=== PATIENT | female | born 1935 | race African-American/Black ===

== ENCOUNTER → 2016-07-27 | Day surgery (SDC) | payer MEDICARE, MEDICAID ==
[~2016-07-27] MED LIST: ALLO100T PO; AMLO5TAB4 PO; ASPI-867 PO; FURO-152 PO; HYDR-3927 PO; INSU100C6 SQ; KDUR20 PO; LEVPEN SQ; LIDOCAINE HCL 1% 20ML VIAL (Pyxis) INJ ONE; LISI-604 PO; METO50TA95 PO; OMEP20CA4 PO; RIVA20TA PO; SIMV20TA6 PO; SODIUM BICARBONATE 4.2% 5 MEQ/10 ML DISP.SYRIN IV ONE
== END | disposition home or self-care (01) ==
LOC: RAD 10:38
PROVIDERS: ATTEND Internal Medicine Endocrinology, Diabetes & Metabolism
DX: E04.1 Nontoxic single thyroid nodule (principal)
CPT/HCPCS: 10022; 76942; 88172; 88173; J3490

== ENCOUNTER 2017-06-30 15:29 | Inpatient (IN) | payer MEDICARE, MEDICAID ==
[~2017-06-30] VITALS: Ht 162.6 cm; Wt 92.1 kg
[~2017-06-30 15:29] MED LIST changes: -LIDOCAINE HCL 1% 20ML VIAL (Pyxis) INJ ONE; -SODIUM BICARBONATE 4.2% 5 MEQ/10 ML DISP.SYRIN IV ONE
[2017-06-30 16:18] VITALS: BP 140/54
[2017-06-30 16:20] VITALS: BP 140/54
[2017-06-30] MEDS ORDERED: TAP5 PO (16:57)
[2017-06-30] MEDS ORDERED: GABA-529 PO (16:57)
[2017-06-30] MEDS ORDERED: LANTUS (17:37)
[2017-06-30] MEDS ORDERED: LORAZEPAM 0.5MG TABLET PO PRN (18:30)
[2017-06-30] MEDS ORDERED: ENOXAPARIN 40MG/0.4ML SYR SUBCUT SCH (18:30)
[2017-06-30] MEDS ORDERED: HYDROMORPHONE HCL/PF 2MG/ML CPJ IV PRN (18:30)
[2017-06-30] MEDS ORDERED: CLONIDINE 0.1MG TABLET PO PRN (18:30)
[2017-06-30] MEDS ORDERED: DEXTROSE 50% WATER 50ML SYRINGE IV PRN (19:15)
[2017-06-30 20:00] VITALS: BP 105/69
[2017-06-30 20:27] LABS: BASOPHILS % 1.4 % (0.0-2.0); EOSINOPHILS % 3.9 % (0.0-5.0); HEMOGLOBIN. 10.2 g/dL (12.0-16.0); LYMPHOCYTES % 19.6 % (20.0-50.0); MEAN CORPUSCULAR HEMOGLOBIN 29.9 pg (28.0-32.0); MEAN CORPUSCULAR VOLUME 88.1 fL (81.0-99.0); MEAN PLATELET VOLUME 8.6 fl (7.4-10.4); MONOCYTES % 9.8 % (2.0-8.0); NEUTROPHILS % 65.3 % (40.0-76.0); PLATELET 225 x1000/uL (130-400); RED BLOOD CELL COUNT 3.41 mill/uL (4.2-5.4); RED CELL DISTRIBUTION WIDTH 15.3 % (11.6-14.6)
[2017-06-30 20:28] LABS: CHLORIDE 110 mEq/L (98-107)
[2017-06-30] MEDS ORDERED: ATORVASTATIN CALCIUM 10MG TABLET PO SCH (21:00)
[2017-06-30] MEDS: BLOOD SUGAR DIAGNOSTIC STRIP TEST SCH (21:00)
[2017-06-30] MEDS: RIVAROXABAN 15 MG TABLET PO SCH (22:42)
[2017-06-30] MEDS: AMLODIPINE 5MG TABLET PO SCH (22:43)
[2017-06-30] MEDS: FUROSEMIDE 40MG/4ML VIAL IVP SCH (22:53)
[2017-06-30] MEDS: INSULIN LISPRO 100 UNITS/ML SUBCUT SCH (22:55)
[2017-06-30] MEDS: INSULIN GLARGINE UD 100 UNITS/ML SYR SUBCUT SCH (22:56)
[2017-07-01] VITALS: BP 162/92
[2017-07-01 00:02] LABS: CLARITY URINE CLEAR (CLEAR); COLOR URINE YELLOW (YELLOW); KETONES URINE NEGATIVE (NEGATIVE); LEUKOCYTE ESTERASE URINE NEGATIVE (NEGATIVE); NITRITE URINE NEGATIVE (NEGATIVE); OCCULT BLOOD URINE NEGATIVE (NEGATIVE); PROTEIN URINE NEGATIVE (NEGATIVE); SPECIFIC GRAVITY URINE 1.011 (1.005-1.030); UROBILINOGEN URINE 0.2 E.U./dL (0.2-1.0)
[2017-07-01] MEDS: IPRATROPIUM/ALBUTEROL 0.5-3(2.5)MG/3ML NEB HHN SCH ×7 (00:17→20:29)
[2017-07-01 04:00] VITALS: BP 119/53
[2017-07-01] MEDS: OMEPRAZOLE 20MG CAPSULE EXTENDED RELEASE PO SCH (06:04)
[2017-07-01] MEDS: BLOOD SUGAR DIAGNOSTIC STRIP TEST SCH ×4 (06:04→21:00)
[2017-07-01] MEDS: INSULIN LISPRO 100 UNITS/ML SUBCUT SCH ×4 (06:22→22:18)
[2017-07-01 07:04] LABS: BASOPHILS % 2.2 % (0.0-2.0); EOSINOPHILS % 5.2 % (0.0-5.0); HEMATOCRIT. 30.6 % (36.0-48.0); LYMPHOCYTES % 25.7 % (20.0-50.0); MEAN CORPUSCULAR HEMOGLOBIN 28.8 pg (28.0-32.0); MEAN CORPUSCULAR VOLUME 88.2 fL (81.0-99.0); MEAN PLATELET VOLUME 8.8 fl (7.4-10.4); NEUTROPHILS % 54.9 % (40.0-76.0); PLATELET 230 x1000/uL (130-400); RED BLOOD CELL COUNT 3.47 mill/uL (4.2-5.4); RED CELL DISTRIBUTION WIDTH 15.3 % (11.6-14.6)
[2017-07-01 08:00] VITALS: BP 154/78
[2017-07-01] MEDS: FUROSEMIDE 40MG/4ML VIAL IVP SCH ×2 (09:21→19:20)
[2017-07-01] MEDS: ALLOPURINOL 100 MG TABLET PO SCH (09:21)
[2017-07-01] MEDS: AMLODIPINE 5MG TABLET PO SCH ×2 (09:21→22:17)
[2017-07-01] MEDS: GABAPENTIN 100MG CAPSULE PO SCH ×3 (09:21→19:16)
[2017-07-01] MEDS: METOPROLOL TARTRATE 25MG TABLET PO SCH ×2 (09:22→22:17)
[2017-07-01] MEDS: LISINOPRIL 40MG TABLET PO SCH (09:22)
[2017-07-01] MEDS: METHIMAZOLE 5MG TABLET PO SCH (09:22)
[2017-07-01] MEDS: POTASSIUM CHLORIDE 20MEQ TABLET SR PO SCH ×2 (09:22→19:16)
[2017-07-01 12:00] VITALS: BP 128/53
[2017-07-01] MEDS ORDERED: HYDROCODONE/ACETAMINOPHEN 5/325MG TABLET PO PRN (15:15)
[2017-07-01 16:00] VITALS: BP 114/52
[2017-07-01] MEDS ORDERED: FUROSEMIDE 20MG TABLET PO SCH (17:00)
[2017-07-01] MEDS: RIVAROXABAN 15 MG TABLET PO SCH (19:16)
[2017-07-01 20:00] VITALS: BP 122/53
[2017-07-01] MEDS: ATORVASTATIN CALCIUM 10MG TABLET PO SCH (23:10)
[2017-07-01] MEDS: INSULIN GLARGINE UD 100 UNITS/ML SYR SUBCUT SCH (23:12)
[2017-07-02] VITALS: BP 144/87
[2017-07-02] MEDS: IPRATROPIUM/ALBUTEROL 0.5-3(2.5)MG/3ML NEB HHN SCH ×6 (00:05→20:00)
[2017-07-02 04:00] VITALS: BP 138/70
[2017-07-02 05:51] LABS: BASOPHILS % 1.2 % (0.0-2.0); EOSINOPHILS % 6.8 % (0.0-5.0); HEMATOCRIT. 27.9 % (36.0-48.0); HEMOGLOBIN. 9.1 g/dL (12.0-16.0); LYMPHOCYTES % 23.3 % (20.0-50.0); MEAN CORPUSCULAR HEMOGLOBIN 28.7 pg (28.0-32.0); MEAN CORPUSCULAR VOLUME 87.7 fL (81.0-99.0); MONOCYTES % 11.1 % (2.0-8.0); NEUTROPHILS % 57.6 % (40.0-76.0); PLATELET 216 x1000/uL (130-400); RED BLOOD CELL COUNT 3.18 mill/uL (4.2-5.4); RED CELL DISTRIBUTION WIDTH 15.5 % (11.6-14.6)
[2017-07-02] MEDS: OMEPRAZOLE 20MG CAPSULE EXTENDED RELEASE PO SCH (06:44)
[2017-07-02] MEDS: BLOOD SUGAR DIAGNOSTIC STRIP TEST SCH ×4 (06:45→20:34)
[2017-07-02 08:00] VITALS: BP 123/66
[2017-07-02] MEDS: INSULIN LISPRO 100 UNITS/ML SUBCUT SCH ×4 (08:00→21:09)
[2017-07-02] MEDS: ASPIRIN 325MG EC TABLET PO SCH (09:14)
[2017-07-02] MEDS: METOPROLOL TARTRATE 25MG TABLET PO SCH ×2 (09:15→21:06)
[2017-07-02] MEDS: POTASSIUM CHLORIDE 20MEQ TABLET SR PO SCH ×2 (09:15→17:39)
[2017-07-02] MEDS: METHIMAZOLE 5MG TABLET PO SCH (09:15)
[2017-07-02] MEDS: LISINOPRIL 40MG TABLET PO SCH (09:16)
[2017-07-02] MEDS: GABAPENTIN 100MG CAPSULE PO SCH ×3 (09:16→17:39)
[2017-07-02] MEDS: FUROSEMIDE 40MG/4ML VIAL IVP SCH ×2 (09:16→17:39)
[2017-07-02] MEDS: AMLODIPINE 5MG TABLET PO SCH ×2 (09:16→21:06)
[2017-07-02] MEDS: ALLOPURINOL 100 MG TABLET PO SCH (09:16)
[2017-07-02 12:00] VITALS: BP 121/45
[2017-07-02 16:00] VITALS: BP 131/71
[2017-07-02] MEDS: RIVAROXABAN 15 MG TABLET PO SCH (17:39)
[2017-07-02 20:00] VITALS: BP 115/45
[2017-07-02] MEDS: ATORVASTATIN CALCIUM 10MG TABLET PO SCH (21:06)
[2017-07-02] MEDS: INSULIN GLARGINE UD 100 UNITS/ML SYR SUBCUT SCH (22:25)
[2017-07-03] VITALS: BP 129/43
[2017-07-03] MEDS: IPRATROPIUM/ALBUTEROL 0.5-3(2.5)MG/3ML NEB HHN SCH ×6 (00:50→21:36)
[2017-07-03 04:00] VITALS: BP_SYST 108; BP_SYST 129; BP_DIAS 43; BP_DIAS 48
[2017-07-03] MEDS: BLOOD SUGAR DIAGNOSTIC STRIP TEST SCH ×4 (05:54→21:28)
[2017-07-03] MEDS: METHYLPREDNISOLONE SOD SUCC 125 MG/2 ML VIAL IV SCH ×3 (06:28→21:27)
[2017-07-03] MEDS: OMEPRAZOLE 20MG CAPSULE EXTENDED RELEASE PO SCH (06:29)
[2017-07-03] MEDS: FUROSEMIDE 40MG/4ML VIAL IVP SCH (06:29)
[2017-07-03] MEDS: INSULIN LISPRO 100 UNITS/ML SUBCUT SCH ×4 (06:33→22:02)
[2017-07-03 08:00] VITALS: BP 115/30
[2017-07-03] MEDS: METOPROLOL TARTRATE 25MG TABLET PO SCH (08:42)
[2017-07-03] MEDS: ASPIRIN 325MG EC TABLET PO SCH (08:43)
[2017-07-03] MEDS: POTASSIUM CHLORIDE 20MEQ TABLET SR PO SCH ×2 (08:44→16:46)
[2017-07-03] MEDS: METHIMAZOLE 5MG TABLET PO SCH (08:44)
[2017-07-03] MEDS: LISINOPRIL 40MG TABLET PO SCH (08:44)
[2017-07-03] MEDS: GABAPENTIN 100MG CAPSULE PO SCH ×3 (08:44→16:46)
[2017-07-03] MEDS: ALLOPURINOL 100 MG TABLET PO SCH (08:44)
[2017-07-03] MEDS: AMLODIPINE 5MG TABLET PO SCH ×2 (08:45→21:26)
[2017-07-03 12:00] VITALS: BP 117/45
[2017-07-03 16:00] VITALS: BP 135/61
[2017-07-03] MEDS: RIVAROXABAN 15 MG TABLET PO SCH (16:46)
[2017-07-03 20:00] VITALS: BP 126/78
[2017-07-03] MEDS: CARVEDILOL 6.25 MG TABLET PO SCH (21:26)
[2017-07-03] MEDS: ATORVASTATIN CALCIUM 10MG TABLET PO SCH (21:26)
[2017-07-03] MEDS: INSULIN GLARGINE UD 100 UNITS/ML SYR SUBCUT SCH (22:03)
[2017-07-04] VITALS: BP 128/53
[2017-07-04] MEDS: IPRATROPIUM/ALBUTEROL 0.5-3(2.5)MG/3ML NEB HHN SCH ×6 (01:13→21:45)
[2017-07-04 04:00] VITALS: BP 147/65
[2017-07-04 05:53] LABS: HEMATOCRIT. 29.6 % (36.0-48.0); HEMOGLOBIN. 9.8 g/dL (12.0-16.0); MEAN CORPUSCULAR VOLUME 87.8 fL (81.0-99.0); PLATELET 238 x1000/uL (130-400); RED BLOOD CELL COUNT 3.37 mill/uL (4.2-5.4); RED CELL DISTRIBUTION WIDTH 15.4 % (11.6-14.6)
[2017-07-04] MEDS: BLOOD SUGAR DIAGNOSTIC STRIP TEST SCH ×4 (06:01→21:00)
[2017-07-04] MEDS: FUROSEMIDE 40MG/4ML VIAL IVP SCH (06:32)
[2017-07-04] MEDS: METHYLPREDNISOLONE SOD SUCC 125 MG/2 ML VIAL IV SCH ×3 (06:32→22:07)
[2017-07-04] MEDS: OMEPRAZOLE 20MG CAPSULE EXTENDED RELEASE PO SCH (06:32)
[2017-07-04] MEDS: INSULIN LISPRO 100 UNITS/ML SUBCUT SCH ×4 (06:35→22:05)
[2017-07-04 08:00] VITALS: BP 134/57
[2017-07-04] MEDS: CARVEDILOL 6.25 MG TABLET PO SCH ×2 (08:49→20:23)
[2017-07-04] MEDS: LISINOPRIL 40MG TABLET PO SCH (08:50)
[2017-07-04] MEDS: GABAPENTIN 100MG CAPSULE PO SCH ×3 (08:50→16:40)
[2017-07-04] MEDS: AMLODIPINE 5MG TABLET PO SCH ×2 (08:50→20:23)
[2017-07-04] MEDS: POTASSIUM CHLORIDE 20MEQ TABLET SR PO SCH (08:50)
[2017-07-04] MEDS: METHIMAZOLE 5MG TABLET PO SCH (08:50)
[2017-07-04] MEDS: ALLOPURINOL 100 MG TABLET PO SCH (08:51)
[2017-07-04] MEDS ORDERED: ASPIRIN 81MG EC TABLET PO SCH (09:00)
[2017-07-04 12:00] VITALS: BP 120/59
[2017-07-04] MEDS: SODIUM CHLORIDE 0.9% 1,000 ML IV SCH (13:10)
[2017-07-04 16:00] VITALS: BP 122/50
[2017-07-04] MEDS: RIVAROXABAN 15 MG TABLET PO SCH (16:40)
[2017-07-04 19:56] LABS: PLATELET ESTIMATE NORMAL
[2017-07-04 20:00] VITALS: BP 145/69
[2017-07-04] MEDS: ATORVASTATIN CALCIUM 10MG TABLET PO SCH (20:23)
[2017-07-04] MEDS: INSULIN GLARGINE UD 100 UNITS/ML SYR SUBCUT SCH (22:05)
[2017-07-05] VITALS: BP 128/48
[2017-07-05] MEDS: IPRATROPIUM/ALBUTEROL 0.5-3(2.5)MG/3ML NEB HHN SCH ×6 (01:58→20:46)
[2017-07-05 04:00] VITALS: BP 129/56
[2017-07-05] MEDS: SODIUM CHLORIDE 0.9% 1,000 ML IV SCH (04:41)
[2017-07-05 06:03] LABS: HEMATOCRIT. 29.1 % (36.0-48.0); HEMOGLOBIN. 9.7 g/dL (12.0-16.0); MEAN CORPUSCULAR HEMOGLOBIN 29.4 pg (28.0-32.0); MEAN CORPUSCULAR VOLUME 88.5 fL (81.0-99.0); MEAN PLATELET VOLUME 8.9 fl (7.4-10.4); PLATELET 239 x1000/uL (130-400); RED BLOOD CELL COUNT 3.29 mill/uL (4.2-5.4); RED CELL DISTRIBUTION WIDTH 15.3 % (11.6-14.6)
[2017-07-05] MEDS: BLOOD SUGAR DIAGNOSTIC STRIP TEST SCH ×4 (06:06→21:00)
[2017-07-05] MEDS: INSULIN LISPRO 100 UNITS/ML SUBCUT SCH ×4 (06:35→21:34)
[2017-07-05 08:00] VITALS: BP 151/52
[2017-07-05] MEDS ORDERED: ONDANSETRON HCL 4MG/2ML VIAL IV PRN (08:30)
[2017-07-05] MEDS ORDERED: SODIUM CHLORIDE 0.9% 1,000 ML IV SCH (08:30)
[2017-07-05] MEDS: ALLOPURINOL 100 MG TABLET PO SCH (08:58)
[2017-07-05] MEDS: CARVEDILOL 6.25 MG TABLET PO SCH ×2 (08:58→21:00)
[2017-07-05] MEDS: FAMOTIDINE 20MG TABLET PO SCH (08:58)
[2017-07-05] MEDS: AMLODIPINE 5MG TABLET PO SCH ×2 (08:59→21:06)
[2017-07-05] MEDS: LISINOPRIL 40MG TABLET PO SCH (08:59)
[2017-07-05] MEDS ORDERED: METHYLPREDNISOLONE SOD SUCC 40 MG/ML VIAL IV SCH (09:00)
[2017-07-05] MEDS: GABAPENTIN 100MG CAPSULE PO SCH ×3 (09:00→18:05)
[2017-07-05] MEDS: METHIMAZOLE 5MG TABLET PO SCH (09:00)
[2017-07-05] MEDS ORDERED: SODIUM POLYSTYRENE SULFONATE 15 G/60 ML BOT PO NR (10:00)
[2017-07-05 12:00] VITALS: BP 122/57
[2017-07-05 13:59] LABS: PLATELET ESTIMATE NORMAL
[2017-07-05 16:00] VITALS: BP 127/50
[2017-07-05] MEDS: RIVAROXABAN 15 MG TABLET PO SCH (18:04)
[2017-07-05 19:16] LABS: CHLORIDE 103 mEq/L (98-107)
[2017-07-05 20:00] VITALS: BP 117/66
[2017-07-05] MEDS: ATORVASTATIN CALCIUM 10MG TABLET PO SCH (21:01)
[2017-07-05] MEDS: INSULIN GLARGINE UD 100 UNITS/ML SYR SUBCUT SCH (21:36)
[2017-07-06] VITALS: BP 130/66
[2017-07-06] MEDS: IPRATROPIUM/ALBUTEROL 0.5-3(2.5)MG/3ML NEB HHN SCH ×6 (00:42→21:43)
[2017-07-06 04:00] VITALS: BP 128/65
[2017-07-06] MEDS: BLOOD SUGAR DIAGNOSTIC STRIP TEST SCH ×4 (06:31→21:08)
[2017-07-06] MEDS: INSULIN LISPRO 100 UNITS/ML SUBCUT SCH ×4 (07:10→21:07)
[2017-07-06 08:00] VITALS: BP 103/41
[2017-07-06] MEDS: CARVEDILOL 6.25 MG TABLET PO SCH ×2 (08:33→21:06)
[2017-07-06] MEDS: LISINOPRIL 40MG TABLET PO SCH (08:34)
[2017-07-06] MEDS: AMLODIPINE 5MG TABLET PO SCH ×2 (10:17→21:07)
[2017-07-06] MEDS: METHIMAZOLE 5MG TABLET PO SCH (10:17)
[2017-07-06] MEDS: FAMOTIDINE 20MG TABLET PO SCH (10:17)
[2017-07-06] MEDS: ALLOPURINOL 100 MG TABLET PO SCH (10:17)
[2017-07-06] MEDS: GABAPENTIN 100MG CAPSULE PO SCH ×3 (10:17→16:48)
[2017-07-06 12:00] VITALS: BP 117/54
[2017-07-06 16:00] VITALS: BP 106/33
[2017-07-06] MEDS: RIVAROXABAN 15 MG TABLET PO SCH (16:48)
[2017-07-06 20:00] VITALS: BP 114/54
[2017-07-06] MEDS: ATORVASTATIN CALCIUM 10MG TABLET PO SCH (21:07)
[2017-07-06] MEDS: INSULIN GLARGINE UD 100 UNITS/ML SYR SUBCUT SCH (21:08)
[2017-07-07] VITALS: BP 116/47
[2017-07-07] MEDS: IPRATROPIUM/ALBUTEROL 0.5-3(2.5)MG/3ML NEB HHN SCH ×7 (01:39→23:58)
[2017-07-07 04:00] VITALS: BP 119/47
[2017-07-07] MEDS: BLOOD SUGAR DIAGNOSTIC STRIP TEST SCH ×4 (06:11→21:51)
[2017-07-07] MEDS: INSULIN LISPRO 100 UNITS/ML SUBCUT SCH ×4 (06:12→21:57)
[2017-07-07 07:18] LABS: BASOPHILS % 0.2 % (0.0-2.0); EOSINOPHILS % 3.3 % (0.0-5.0); HEMATOCRIT. 30.4 % (36.0-48.0); HEMOGLOBIN. 10.5 g/dL (12.0-16.0); LYMPHOCYTES % 25.8 % (20.0-50.0); MEAN CORPUSCULAR HEMOGLOBIN 30.5 pg (28.0-32.0); MONOCYTES % 14.6 % (2.0-8.0); NEUTROPHILS % 56.1 % (40.0-76.0); PLATELET 251 x1000/uL (130-400); RED BLOOD CELL COUNT 3.45 mill/uL (4.2-5.4)
[2017-07-07 07:33] LABS: CHLORIDE 105 mEq/L (98-107)
[2017-07-07 07:39] LABS: PHOSPHORUS 4.8 mg/dL (2.5-4.9)
[2017-07-07 08:00] VITALS: BP 144/88
[2017-07-07] MEDS: LISINOPRIL 40MG TABLET PO SCH (09:00)
[2017-07-07] MEDS: CARVEDILOL 6.25 MG TABLET PO SCH ×2 (09:00→21:51)
[2017-07-07] MEDS: AMLODIPINE 5MG TABLET PO SCH ×2 (09:49→21:50)
[2017-07-07] MEDS: ALLOPURINOL 100 MG TABLET PO SCH (09:49)
[2017-07-07] MEDS: METHIMAZOLE 5MG TABLET PO SCH (09:49)
[2017-07-07] MEDS: GABAPENTIN 100MG CAPSULE PO SCH ×3 (09:49→17:47)
[2017-07-07] MEDS: FAMOTIDINE 20MG TABLET PO SCH (09:50)
[2017-07-07 12:00] VITALS: BP 111/52
[2017-07-07 16:00] VITALS: BP 143/53
[2017-07-07] MEDS: RIVAROXABAN 15 MG TABLET PO SCH (17:47)
[2017-07-07 20:00] VITALS: BP 127/47
[2017-07-07] MEDS: ATORVASTATIN CALCIUM 10MG TABLET PO SCH (21:49)
[2017-07-07] MEDS: INSULIN GLARGINE UD 100 UNITS/ML SYR SUBCUT SCH (21:58)
[2017-07-08] VITALS: BP 109/54
[2017-07-08 00:42] LABS: TOTAL IRON BINDING CAPACITY 176 ug/dL (250-450)
[2017-07-08 04:00] VITALS: BP 105/50
[2017-07-08] MEDS: IPRATROPIUM/ALBUTEROL 0.5-3(2.5)MG/3ML NEB HHN SCH ×5 (04:11→21:52)
[2017-07-08] MEDS: BLOOD SUGAR DIAGNOSTIC STRIP TEST SCH ×4 (06:47→21:50)
[2017-07-08] MEDS: INSULIN LISPRO 100 UNITS/ML SUBCUT SCH ×4 (06:47→21:46)
[2017-07-08 07:04] LABS: BASOPHILS % 0.3 % (0.0-2.0); EOSINOPHILS % 6.5 % (0.0-5.0); HEMATOCRIT. 33.4 % (36.0-48.0); LYMPHOCYTES % 24.5 % (20.0-50.0); MEAN CORPUSCULAR HEMOGLOBIN 28.9 pg (28.0-32.0); MEAN PLATELET VOLUME 8.8 fl (7.4-10.4); MONOCYTES % 11.6 % (2.0-8.0); NEUTROPHILS % 57.1 % (40.0-76.0); PLATELET 248 x1000/uL (130-400); RED BLOOD CELL COUNT 3.79 mill/uL (4.2-5.4); RED CELL DISTRIBUTION WIDTH 15.1 % (11.6-14.6)
[2017-07-08 07:15] VITALS: BP 124/55
[2017-07-08 07:25] LABS: PHOSPHORUS 4.8 mg/dL (2.5-4.9)
[2017-07-08] MEDS: FAMOTIDINE 20MG TABLET PO SCH (09:04)
[2017-07-08] MEDS: METHIMAZOLE 5MG TABLET PO SCH (09:05)
[2017-07-08] MEDS: CARVEDILOL 6.25 MG TABLET PO SCH ×2 (09:05→21:26)
[2017-07-08] MEDS: AMLODIPINE 5MG TABLET PO SCH ×2 (09:05→21:26)
[2017-07-08] MEDS: ALLOPURINOL 100 MG TABLET PO SCH (09:05)
[2017-07-08] MEDS: LISINOPRIL 40MG TABLET PO SCH (09:05)
[2017-07-08] MEDS: GABAPENTIN 100MG CAPSULE PO SCH ×3 (09:05→17:05)
[2017-07-08 12:04] VITALS: BP 114/56
[2017-07-08 17:03] VITALS: BP 125/50
[2017-07-08] MEDS: RIVAROXABAN 15 MG TABLET PO SCH (17:05)
[2017-07-08 20:00] VITALS: BP 154/59
[2017-07-08] MEDS: ATORVASTATIN CALCIUM 10MG TABLET PO SCH (21:26)
[2017-07-08] MEDS: INSULIN GLARGINE UD 100 UNITS/ML SYR SUBCUT SCH (21:58)
[2017-07-09] VITALS: BP 113/76
[2017-07-09] MEDS: IPRATROPIUM/ALBUTEROL 0.5-3(2.5)MG/3ML NEB HHN SCH ×6 (04:03→21:07)
[2017-07-09 04:18] VITALS: BP 114/72
[2017-07-09] MEDS: BLOOD SUGAR DIAGNOSTIC STRIP TEST SCH ×4 (05:30→21:24)
[2017-07-09] MEDS: INSULIN LISPRO 100 UNITS/ML SUBCUT SCH ×4 (05:33→21:17)
[2017-07-09 06:25] LABS: BASOPHILS % 0.4 % (0.0-2.0); EOSINOPHILS % 6.9 % (0.0-5.0); HEMATOCRIT. 31.7 % (36.0-48.0); HEMOGLOBIN. 10.5 g/dL (12.0-16.0); MEAN CORPUSCULAR HEMOGLOBIN 28.9 pg (28.0-32.0); MEAN CORPUSCULAR VOLUME 87.4 fL (81.0-99.0); MEAN PLATELET VOLUME 8.9 fl (7.4-10.4); MONOCYTES % 10.5 % (2.0-8.0); NEUTROPHILS % 63.2 % (40.0-76.0); PLATELET 249 x1000/uL (130-400); RED BLOOD CELL COUNT 3.63 mill/uL (4.2-5.4); RED CELL DISTRIBUTION WIDTH 15.1 % (11.6-14.6)
[2017-07-09 08:00] VITALS: BP 134/53
[2017-07-09] MEDS: FAMOTIDINE 20MG TABLET PO SCH (08:34)
[2017-07-09] MEDS: GABAPENTIN 100MG CAPSULE PO SCH ×3 (08:34→17:54)
[2017-07-09] MEDS: METHIMAZOLE 5MG TABLET PO SCH (08:34)
[2017-07-09] MEDS: LISINOPRIL 40MG TABLET PO SCH (08:34)
[2017-07-09] MEDS: CARVEDILOL 6.25 MG TABLET PO SCH ×2 (08:35→21:02)
[2017-07-09] MEDS: AMLODIPINE 5MG TABLET PO SCH ×2 (08:35→21:02)
[2017-07-09] MEDS: ALLOPURINOL 100 MG TABLET PO SCH (08:35)
[2017-07-09 12:00] VITALS: BP 122/50
[2017-07-09 16:00] VITALS: BP 110/45
[2017-07-09] MEDS: RIVAROXABAN 15 MG TABLET PO SCH (17:54)
[2017-07-09 20:00] VITALS: BP 126/47
[2017-07-09] MEDS: ATORVASTATIN CALCIUM 10MG TABLET PO SCH (21:02)
[2017-07-09] MEDS: INSULIN GLARGINE UD 100 UNITS/ML SYR SUBCUT SCH (21:21)
[2017-07-10] VITALS: BP 138/54
[2017-07-10] MEDS: IPRATROPIUM/ALBUTEROL 0.5-3(2.5)MG/3ML NEB HHN SCH ×6 (00:46→20:56)
[2017-07-10 04:00] VITALS: BP 121/49
[2017-07-10 06:01] LABS: BASOPHILS % 0.3 % (0.0-2.0); EOSINOPHILS % 7.9 % (0.0-5.0); HEMATOCRIT. 30.2 % (36.0-48.0); HEMOGLOBIN. 10.1 g/dL (12.0-16.0); LYMPHOCYTES % 18.1 % (20.0-50.0); MEAN CORPUSCULAR HEMOGLOBIN 29.4 pg (28.0-32.0); MEAN CORPUSCULAR VOLUME 87.8 fL (81.0-99.0); MEAN PLATELET VOLUME 8.9 fl (7.4-10.4); MONOCYTES % 10.5 % (2.0-8.0); NEUTROPHILS % 63.2 % (40.0-76.0); PLATELET 243 x1000/uL (130-400); RED BLOOD CELL COUNT 3.43 mill/uL (4.2-5.4); RED CELL DISTRIBUTION WIDTH 14.9 % (11.6-14.6)
[2017-07-10] MEDS: INSULIN LISPRO 100 UNITS/ML SUBCUT SCH ×4 (06:30→21:00)
[2017-07-10] MEDS: BLOOD SUGAR DIAGNOSTIC STRIP TEST SCH ×4 (06:31→21:00)
[2017-07-10 08:00] VITALS: BP 121/54
[2017-07-10] MEDS: METHIMAZOLE 5MG TABLET PO SCH (09:24)
[2017-07-10] MEDS: FAMOTIDINE 20MG TABLET PO SCH (09:24)
[2017-07-10] MEDS: CARVEDILOL 6.25 MG TABLET PO SCH ×2 (09:24→20:45)
[2017-07-10] MEDS: ALLOPURINOL 100 MG TABLET PO SCH (09:24)
[2017-07-10] MEDS: GABAPENTIN 100MG CAPSULE PO SCH ×3 (09:24→17:30)
[2017-07-10] MEDS: AMLODIPINE 5MG TABLET PO SCH ×2 (09:24→20:45)
[2017-07-10] MEDS: LISINOPRIL 40MG TABLET PO SCH (09:25)
[2017-07-10 12:00] VITALS: BP 126/99
[2017-07-10 16:00] VITALS: BP 122/75
[2017-07-10] MEDS: RIVAROXABAN 15 MG TABLET PO SCH (17:30)
[2017-07-10 20:00] VITALS: BP 138/60
[2017-07-10] MEDS: ATORVASTATIN CALCIUM 10MG TABLET PO SCH (20:44)
[2017-07-10] MEDS: INSULIN GLARGINE UD 100 UNITS/ML SYR SUBCUT SCH (22:06)
[2017-07-11] VITALS (7 sets, daily range): BP systolic 117–144; BP diastolic 45–69
[2017-07-11] MEDS: IPRATROPIUM/ALBUTEROL 0.5-3(2.5)MG/3ML NEB HHN SCH ×6 (00:15→21:51)
[2017-07-11 06:08] LABS: BASOPHILS % 0.5 % (0.0-2.0); EOSINOPHILS % 7.2 % (0.0-5.0); HEMATOCRIT. 30.8 % (36.0-48.0); HEMOGLOBIN. 10.2 g/dL (12.0-16.0); LYMPHOCYTES % 22.6 % (20.0-50.0); MEAN CORPUSCULAR HEMOGLOBIN 29.4 pg (28.0-32.0); MEAN CORPUSCULAR VOLUME 88.8 fL (81.0-99.0); MONOCYTES % 10.7 % (2.0-8.0); PLATELET 238 x1000/uL (130-400); RED BLOOD CELL COUNT 3.46 mill/uL (4.2-5.4); RED CELL DISTRIBUTION WIDTH 14.9 % (11.6-14.6)
[2017-07-11] MEDS: INSULIN LISPRO 100 UNITS/ML SUBCUT SCH ×4 (07:15→22:04)
[2017-07-11] MEDS: FAMOTIDINE 20MG TABLET PO SCH (09:08)
[2017-07-11] MEDS: ALLOPURINOL 100 MG TABLET PO SCH (09:08)
[2017-07-11] MEDS: LISINOPRIL 40MG TABLET PO SCH (09:08)
[2017-07-11] MEDS: GABAPENTIN 100MG CAPSULE PO SCH ×3 (09:08→17:46)
[2017-07-11] MEDS: CARVEDILOL 6.25 MG TABLET PO SCH ×2 (09:09→22:01)
[2017-07-11] MEDS: METHIMAZOLE 5MG TABLET PO SCH (09:09)
[2017-07-11] MEDS: AMLODIPINE 5MG TABLET PO SCH ×2 (09:09→22:00)
[2017-07-11] MEDS: BLOOD SUGAR DIAGNOSTIC STRIP TEST SCH ×3 (11:45→21:58)
[2017-07-11] MEDS: ATORVASTATIN CALCIUM 10MG TABLET PO SCH (22:00)
[2017-07-11] MEDS: INSULIN GLARGINE UD 100 UNITS/ML SYR SUBCUT SCH (23:19)
[2017-07-12] VITALS: BP 134/62
[2017-07-12 04:00] VITALS: BP 116/58
[2017-07-12] MEDS: IPRATROPIUM/ALBUTEROL 0.5-3(2.5)MG/3ML NEB HHN SCH ×6 (05:03→20:44)
[2017-07-12] MEDS: BLOOD SUGAR DIAGNOSTIC STRIP TEST SCH ×4 (05:48→21:08)
[2017-07-12] MEDS: INSULIN LISPRO 100 UNITS/ML SUBCUT SCH ×4 (05:48→21:13)
[2017-07-12 06:03] LABS: HEMATOCRIT. 27.5 % (36.0-48.0); HEMOGLOBIN. 9.1 g/dL (12.0-16.0); LYMPHOCYTES % 18.4 % (20.0-50.0); MEAN CORPUSCULAR HEMOGLOBIN 29.1 pg (28.0-32.0); MEAN CORPUSCULAR VOLUME 87.9 fL (81.0-99.0); MEAN PLATELET VOLUME 8.7 fl (7.4-10.4); MONOCYTES % 10.3 % (2.0-8.0); NEUTROPHILS % 62.3 % (40.0-76.0); PLATELET 237 x1000/uL (130-400); RED BLOOD CELL COUNT 3.13 mill/uL (4.2-5.4); RED CELL DISTRIBUTION WIDTH 15.2 % (11.6-14.6)
[2017-07-12 08:00] VITALS: BP 104/56
[2017-07-12] MEDS: FUROSEMIDE 40MG/4ML VIAL IVP SCH ×2 (08:33→21:07)
[2017-07-12] MEDS: ALLOPURINOL 100 MG TABLET PO SCH (08:34)
[2017-07-12] MEDS: GABAPENTIN 100MG CAPSULE PO SCH ×3 (08:34→18:08)
[2017-07-12] MEDS: METHIMAZOLE 5MG TABLET PO SCH (08:34)
[2017-07-12] MEDS: FAMOTIDINE 20MG TABLET PO SCH (08:34)
[2017-07-12] MEDS: CARVEDILOL 6.25 MG TABLET PO SCH ×2 (08:44→21:08)
[2017-07-12] MEDS: AMLODIPINE 5MG TABLET PO SCH ×2 (08:45→21:07)
[2017-07-12] MEDS: LISINOPRIL 40MG TABLET PO SCH (08:45)
[2017-07-12 12:00] VITALS: BP 119/46
[2017-07-12 16:00] VITALS: BP 142/92
[2017-07-12 20:00] VITALS: BP 136/46
[2017-07-12] MEDS: ATORVASTATIN CALCIUM 10MG TABLET PO SCH (21:08)
[2017-07-12] MEDS: INSULIN GLARGINE UD 100 UNITS/ML SYR SUBCUT SCH (21:15)
[2017-07-13] VITALS: BP 142/54
[2017-07-13] MEDS ORDERED: NAPROXEN 250MG TABLET PO SCH
[2017-07-13] MEDS: IPRATROPIUM/ALBUTEROL 0.5-3(2.5)MG/3ML NEB HHN SCH ×7 (00:08→21:37)
[2017-07-13 04:00] VITALS: BP 136/60
[2017-07-13] MEDS: BLOOD SUGAR DIAGNOSTIC STRIP TEST SCH ×4 (05:45→20:58)
[2017-07-13] MEDS: INSULIN LISPRO 100 UNITS/ML SUBCUT SCH ×4 (05:48→21:14)
[2017-07-13 08:00] VITALS: BP 123/57
[2017-07-13] MEDS: METHIMAZOLE 5MG TABLET PO SCH (09:05)
[2017-07-13] MEDS: ALLOPURINOL 100 MG TABLET PO SCH (09:05)
[2017-07-13] MEDS: COLCHICINE 0.6MG TABLET PO SCH ×2 (09:05→20:57)
[2017-07-13] MEDS: FAMOTIDINE 20MG TABLET PO SCH (09:05)
[2017-07-13] MEDS: FUROSEMIDE 40MG/4ML VIAL IVP SCH ×2 (09:05→20:58)
[2017-07-13] MEDS: GABAPENTIN 100MG CAPSULE PO SCH ×3 (09:05→17:03)
[2017-07-13] MEDS: AMLODIPINE 5MG TABLET PO SCH ×2 (09:06→20:58)
[2017-07-13] MEDS: LISINOPRIL 40MG TABLET PO SCH (09:06)
[2017-07-13] MEDS: CARVEDILOL 6.25 MG TABLET PO SCH ×2 (09:07→20:58)
[2017-07-13 12:00] VITALS: BP 114/50
[2017-07-13 16:00] VITALS: BP 121/52
[2017-07-13] MEDS: RIVAROXABAN 15 MG TABLET PO SCH (17:03)
[2017-07-13 20:00] VITALS: BP 144/61
[2017-07-13] MEDS: ATORVASTATIN CALCIUM 10MG TABLET PO SCH (20:57)
[2017-07-13] MEDS: INSULIN GLARGINE UD 100 UNITS/ML SYR SUBCUT SCH (21:56)
[2017-07-14] VITALS: BP 141/58
[2017-07-14] MEDS: IPRATROPIUM/ALBUTEROL 0.5-3(2.5)MG/3ML NEB HHN SCH ×5 (00:27→16:43)
[2017-07-14 04:00] VITALS: BP 115/52
[2017-07-14] MEDS: BLOOD SUGAR DIAGNOSTIC STRIP TEST SCH ×3 (05:42→16:45)
[2017-07-14] MEDS: INSULIN LISPRO 100 UNITS/ML SUBCUT SCH ×2 (05:42→12:15)
[2017-07-14 08:00] VITALS: BP 134/63
[2017-07-14] MEDS: FUROSEMIDE 40MG/4ML VIAL IVP SCH (09:05)
[2017-07-14] MEDS: FAMOTIDINE 20MG TABLET PO SCH (09:07)
[2017-07-14] MEDS: METHIMAZOLE 5MG TABLET PO SCH (09:07)
[2017-07-14] MEDS: COLCHICINE 0.6MG TABLET PO SCH (09:07)
[2017-07-14] MEDS: GABAPENTIN 100MG CAPSULE PO SCH ×3 (09:08→17:49)
[2017-07-14] MEDS: LISINOPRIL 40MG TABLET PO SCH (09:09)
[2017-07-14] MEDS: AMLODIPINE 5MG TABLET PO SCH (09:10)
[2017-07-14] MEDS: CARVEDILOL 6.25 MG TABLET PO SCH (09:10)
[2017-07-14] MEDS: ALLOPURINOL 100 MG TABLET PO SCH (09:11)
[2017-07-14 12:00] VITALS: BP 120/61
[2017-07-14 13:46] VITALS: BP 120/61
[2017-07-14 16:00] VITALS: BP 132/72
[2017-07-14] MEDS: RIVAROXABAN 15 MG TABLET PO SCH (17:49)
== END 2017-07-14 18:13 | disposition home or self-care (01) | DRG 291 ==
LOC: 5WST 15:29
PROVIDERS: ADMIT Internal Medicine Nephrology; ATTEND Internal Medicine Nephrology
DX: I13.0 Hypertensive heart and chronic kidney disease with heart failure and stage 1 through stage 4 chronic kidney disease, or unspecified chronic kidney disease (principal); I50.43 Acute on chronic combined systolic (congestive) and diastolic (congestive) heart failure; E43 Unspecified severe protein-calorie malnutrition; E11.21 Type 2 diabetes mellitus with diabetic nephropathy; N17.9 Acute kidney failure, unspecified; N18.4 Chronic kidney disease, stage 4 (severe); I48.1 Persistent atrial fibrillation; E11.22 Type 2 diabetes mellitus with diabetic chronic kidney disease; J44.1 Chronic obstructive pulmonary disease with (acute) exacerbation; J44.0 Chronic obstructive pulmonary disease with (acute) lower respiratory infection; E11.40 Type 2 diabetes mellitus with diabetic neuropathy, unspecified; E11.649 Type 2 diabetes mellitus with hypoglycemia without coma; I42.9 Cardiomyopathy, unspecified; J20.9 Acute bronchitis, unspecified; E87.5 Hyperkalemia; D63.8 Anemia in other chronic diseases classified elsewhere; E05.90 Thyrotoxicosis, unspecified without thyrotoxic crisis or storm; E11.51 Type 2 diabetes mellitus with diabetic peripheral angiopathy without gangrene; E78.5 Hyperlipidemia, unspecified; I25.10 Atherosclerotic heart disease of native coronary artery without angina pectoris; M10.9 Gout, unspecified; T50.2X5A Adverse effect of carbonic-anhydrase inhibitors, benzothiadiazides and other diuretics, initial encounter; Z79.01 Long term (current) use of anticoagulants; Z79.4 Long term (current) use of insulin; Z95.0 Presence of cardiac pacemaker; Z82.49 Family history of ischemic heart disease and other diseases of the circulatory system; Z83.3 Family history of diabetes mellitus; Z86.73 Personal history of transient ischemic attack (TIA), and cerebral infarction without residual deficits
CPT/HCPCS: 36415; 71045; 80048; 80053; 81003; 82728; 82962; 83520; 83540; 83550; 83735; 83880; 84100; 84484; 85025; 93005; 93306; 93970; 94640; 97116; 97162; J1815; J1940; J2405; J2930; J7030; J7620; A4315

== ENCOUNTER → 2017-10-04 | Outpatient (CLI) | payer MEDICARE, MEDICAID ==
[~2017-10-04] MED LIST changes: +GABA-529 PO; +LANTUS; +TAP5 PO
== END | disposition home or self-care (01) ==
LOC: RAD 12:43
PROVIDERS: ATTEND Internal Medicine Nephrology
DX: I13.0 Hypertensive heart and chronic kidney disease with heart failure and stage 1 through stage 4 chronic kidney disease, or unspecified chronic kidney disease (principal); E11.22 Type 2 diabetes mellitus with diabetic chronic kidney disease; N18.4 Chronic kidney disease, stage 4 (severe); I50.9 Heart failure, unspecified; I48.1 Persistent atrial fibrillation; J44.9 Chronic obstructive pulmonary disease, unspecified
CPT/HCPCS: 71046

== ENCOUNTER 2019-03-28 22:56 | Inpatient (IN) | payer MEDICARE, MEDICAID ==
[~2019-03-28] VITALS: Ht 162.6 cm; Wt 76.7 kg
[2019-03-28 21:10] VITALS: BP 147/70
[2019-03-28 22:00] VITALS: BP 147/70
[~2019-03-28 22:56] MED LIST changes: -ASPI-867 PO; +ASPI325T85 PO; +SIMV-43 PO; -SIMV20TA6 PO
[2019-03-28] MEDS ORDERED: ONDANSETRON HCL 4MG TABLET PO PRN (23:45)
[2019-03-28] MEDS ORDERED: MAGNESIUM/ALUMINUM HYDROXIDE/SIMETHICONE 30ML UDC PO PRN (23:45)
[2019-03-28] MEDS ORDERED: DEXTROSE 50% WATER 50ML SYRINGE IV PRN (23:45)
[2019-03-29] MEDS: INSULIN GLARGINE UD 100 UNITS/ML SYR SUBCUT SCH ×3 (00:49→22:52)
[2019-03-29 06:23] LABS: HEMOGLOBIN. 10.7 g/dL (12.0-16.0); MEAN CORPUSCULAR HEMOGLOBIN 29.6 pg (28.0-32.0); MEAN CORPUSCULAR VOLUME 90.9 fL (81.0-99.0); MEAN PLATELET VOLUME 9.6 fl (7.4-10.4); PLATELET 162 x1000/uL (130-400); RED BLOOD CELL COUNT 3.63 mill/uL (4.2-5.4); RED CELL DISTRIBUTION WIDTH 15.2 % (11.6-14.6)
[2019-03-29 06:34] LABS: CHLORIDE 103 mEq/L (98-107)
[2019-03-29] MEDS: ACETAMINOPHEN 325MG TABLET PO PRN (06:44)
[2019-03-29] MEDS: INSULIN LISPRO 100 UNITS/ML SUBCUT SCH ×4 (06:44→21:00)
[2019-03-29] MEDS: BLOOD SUGAR DIAGNOSTIC STRIP TEST SCH ×4 (06:44→21:00)
[2019-03-29 07:15] VITALS: BP 126/60
[2019-03-29] MEDS: APIXABAN 2.5 MG TABLET PO SCH ×2 (08:36→16:35)
[2019-03-29] MEDS: CARVEDILOL 6.25 MG TABLET PO SCH ×2 (08:36→21:00)
[2019-03-29] MEDS: AMLODIPINE 5MG TABLET PO SCH (08:37)
[2019-03-29] MEDS ORDERED: FUROSEMIDE 40MG/4ML VIAL IVP SCH (09:00)
[2019-03-29 10:17] LABS: PLATELET ESTIMATE NORMAL
[2019-03-29] MEDS ORDERED: IPRATROPIUM/ALBUTEROL 0.5-3(2.5)MG/3ML NEB HHN PRN (15:15)
[2019-03-29] MEDS: GUAIFENESIN/CODEINE 200-20MG/10ML UDC PO PRN (15:57)
[2019-03-29] MEDS: IPRATROPIUM/ALBUTEROL 0.5-3(2.5)MG/3ML NEB HHN SCH (19:50)
[2019-03-29 20:00] VITALS: BP 132/51
[2019-03-29] MEDS: ATORVASTATIN CALCIUM 20MG TABLET PO SCH (21:46)
[2019-03-29] MEDS: GUAIFENESIN 600MG ER TABLET PO SCH (21:46)
[2019-03-30] MEDS: IPRATROPIUM/ALBUTEROL 0.5-3(2.5)MG/3ML NEB HHN SCH ×4 (01:49→21:10)
[2019-03-30] MEDS: BLOOD SUGAR DIAGNOSTIC STRIP TEST SCH ×4 (06:01→21:07)
[2019-03-30] MEDS: INSULIN LISPRO 100 UNITS/ML SUBCUT SCH ×4 (06:02→21:58)
[2019-03-30] MEDS: GUAIFENESIN/CODEINE 200-20MG/10ML UDC PO PRN (06:14)
[2019-03-30 07:00] VITALS: BP 133/43
[2019-03-30] MEDS: AMLODIPINE 5MG TABLET PO SCH (10:19)
[2019-03-30] MEDS: CARVEDILOL 6.25 MG TABLET PO SCH ×2 (10:20→21:03)
[2019-03-30] MEDS: APIXABAN 2.5 MG TABLET PO SCH ×2 (10:20→17:23)
[2019-03-30] MEDS: GUAIFENESIN 600MG ER TABLET PO SCH ×2 (10:20→21:03)
[2019-03-30] MEDS ORDERED: LEVOFLOXACIN 250MG PREMIX 50 ML IV SCH (11:00)
[2019-03-30] MEDS: FUROSEMIDE 40MG TABLET PO SCH (11:06)
[2019-03-30] MEDS: INSULIN GLARGINE UD 100 UNITS/ML SYR SUBCUT SCH ×2 (11:08→22:26)
[2019-03-30] MEDS ORDERED: LIDOCAINE HCL/PF 1% 2ML VIAL ONE (14:50)
[2019-03-30 15:06] LABS: BG BASE EXCESS 2.8 mmol/L (-2.0-2.0); BG DEOXYHEMOGLOBIN 2.7 % (0.0-5.0); BG HCO3 ACT 27.3 mmol/L (22.0-26.0); BG METHEMOGLOBIN 0.2 % (0.0-1.5); BG OXYGEN SATURATION 97.3 % (92.0-98.5); BG OXYHEMOGLOBIN 97.1 % (94.0-97.0); BG PCO2 41.8 mmHg (35.0-45.0); BG PH 7.433 (7.350-7.450); BG PO2 92.6 mmHg (75.0-100.0); BG SAMPLE SITE LEFT BRACHIAL; BG TOTAL HEMOGLOBIN 11.2 g/dL (12.0-18.0); BG VENT MODE NASAL CANNULA
[2019-03-30] MEDS: PREDNISONE 20MG TABLET PO SCH (15:47)
[2019-03-30] MEDS: LEVOFLOXACIN 250MG TABLET PO SCH (15:47)
[2019-03-30 20:00] VITALS: BP 142/61
[2019-03-30] MEDS: ATORVASTATIN CALCIUM 20MG TABLET PO SCH (21:03)
[2019-03-30] MEDS: FLUTICASONE PROPIONATE 50MCG/SPRAY BOTTLE BOTHNSTRLS SCH (22:27)
[2019-03-31] MEDS: IPRATROPIUM/ALBUTEROL 0.5-3(2.5)MG/3ML NEB HHN SCH ×2 (00:51→21:53)
[2019-03-31] MEDS: ACETYLCYSTEINE 100MG/ML 10% VIAL 4ML INH SCH ×3 (00:51→08:11)
[2019-03-31] MEDS: INSULIN LISPRO 100 UNITS/ML SUBCUT SCH ×4 (06:39→21:19)
[2019-03-31] MEDS: GUAIFENESIN/CODEINE 200-20MG/10ML UDC PO PRN ×2 (06:40→15:02)
[2019-03-31] MEDS: BLOOD SUGAR DIAGNOSTIC STRIP TEST SCH ×4 (06:40→21:11)
[2019-03-31 07:21] LABS: HEMATOCRIT. 30.7 % (36.0-48.0); HEMOGLOBIN. 10.3 g/dL (12.0-16.0); LYMPHOCYTES % 18.1 % (20.0-50.0); MEAN CORPUSCULAR HEMOGLOBIN 30.2 pg (28.0-32.0); MEAN CORPUSCULAR VOLUME 90.4 fL (81.0-99.0); MEAN PLATELET VOLUME 9.9 fl (7.4-10.4); MONOCYTES % 13.6 % (2.0-8.0); NEUTROPHILS % 67.3 % (40.0-76.0); PLATELET 151 x1000/uL (130-400); RED CELL DISTRIBUTION WIDTH 14.9 % (11.6-14.6)
[2019-03-31 07:38] LABS: CHLORIDE 100 mEq/L (98-107)
[2019-03-31 08:00] VITALS: BP 101/53
[2019-03-31] MEDS: APIXABAN 2.5 MG TABLET PO SCH ×2 (08:23→16:29)
[2019-03-31] MEDS: PREDNISONE 20MG TABLET PO SCH (08:23)
[2019-03-31] MEDS: GUAIFENESIN 600MG ER TABLET PO SCH ×2 (08:23→21:00)
[2019-03-31] MEDS: FLUTICASONE PROPIONATE 50MCG/SPRAY BOTTLE BOTHNSTRLS SCH ×2 (08:23→21:00)
[2019-03-31] MEDS: FUROSEMIDE 40MG TABLET PO SCH (08:23)
[2019-03-31] MEDS: CARVEDILOL 6.25 MG TABLET PO SCH ×2 (08:38→21:01)
[2019-03-31] MEDS: AMLODIPINE 5MG TABLET PO SCH (08:38)
[2019-03-31] MEDS: INSULIN GLARGINE UD 100 UNITS/ML SYR SUBCUT SCH ×2 (09:50→21:50)
[2019-03-31 20:00] VITALS: BP 123/51
[2019-03-31] MEDS: ATORVASTATIN CALCIUM 20MG TABLET PO SCH (21:00)
[2019-04-01] MEDS: ACETYLCYSTEINE 100MG/ML 10% VIAL 4ML INH SCH (00:49)
[2019-04-01] MEDS: IPRATROPIUM/ALBUTEROL 0.5-3(2.5)MG/3ML NEB HHN SCH ×4 (00:49→19:55)
[2019-04-01] MEDS: BLOOD SUGAR DIAGNOSTIC STRIP TEST SCH ×4 (05:36→21:00)
[2019-04-01] MEDS: INSULIN LISPRO 100 UNITS/ML SUBCUT SCH ×4 (06:05→22:17)
[2019-04-01 08:00] VITALS: BP 148/71
[2019-04-01] MEDS: APIXABAN 2.5 MG TABLET PO SCH ×2 (09:13→17:48)
[2019-04-01] MEDS: AMLODIPINE 5MG TABLET PO SCH (09:13)
[2019-04-01] MEDS: FUROSEMIDE 40MG TABLET PO SCH (09:13)
[2019-04-01] MEDS: PREDNISONE 20MG TABLET PO SCH (09:13)
[2019-04-01] MEDS: LEVOFLOXACIN 250MG TABLET PO SCH (09:13)
[2019-04-01] MEDS: FLUTICASONE PROPIONATE 50MCG/SPRAY BOTTLE BOTHNSTRLS SCH ×2 (09:14→22:11)
[2019-04-01] MEDS: CARVEDILOL 6.25 MG TABLET PO SCH ×2 (09:14→22:12)
[2019-04-01] MEDS: GUAIFENESIN 600MG ER TABLET PO SCH ×2 (10:12→22:12)
[2019-04-01] MEDS: INSULIN GLARGINE UD 100 UNITS/ML SYR SUBCUT SCH ×2 (10:25→22:12)
[2019-04-01] MEDS ORDERED: PROMETHAZINE/DEXTROMETHORPHAN 6.25-15MG/5ML BOTTLE 120ML PO PRN (11:00)
[2019-04-01 20:00] VITALS: BP 136/52
[2019-04-01] MEDS: ACETAMINOPHEN 325MG TABLET PO PRN (20:33)
[2019-04-01] MEDS: ATORVASTATIN CALCIUM 20MG TABLET PO SCH (22:13)
[2019-04-02] MEDS: IPRATROPIUM/ALBUTEROL 0.5-3(2.5)MG/3ML NEB HHN SCH ×4 (01:12→21:08)
[2019-04-02] MEDS: INSULIN LISPRO 100 UNITS/ML SUBCUT SCH ×4 (06:34→23:02)
[2019-04-02] MEDS: BLOOD SUGAR DIAGNOSTIC STRIP TEST SCH ×4 (06:34→21:22)
[2019-04-02] MEDS: ACETYLCYSTEINE 100MG/ML 10% VIAL 4ML INH SCH ×2 (07:26→14:45)
[2019-04-02 08:00] VITALS: BP 160/73
[2019-04-02 08:13] LABS: HEMATOCRIT. 34.9 % (36.0-48.0); HEMOGLOBIN. 11.3 g/dL (12.0-16.0); MEAN CORPUSCULAR HEMOGLOBIN 29.5 pg (28.0-32.0); MEAN CORPUSCULAR VOLUME 90.9 fL (81.0-99.0); MEAN PLATELET VOLUME 9.1 fl (7.4-10.4); PLATELET 164 x1000/uL (130-400); RED BLOOD CELL COUNT 3.84 mill/uL (4.2-5.4); RED CELL DISTRIBUTION WIDTH 15.1 % (11.6-14.6)
[2019-04-02] MEDS: FUROSEMIDE 40MG TABLET PO SCH (08:36)
[2019-04-02] MEDS: CARVEDILOL 6.25 MG TABLET PO SCH ×2 (08:36→22:59)
[2019-04-02] MEDS: APIXABAN 2.5 MG TABLET PO SCH ×2 (08:36→17:27)
[2019-04-02] MEDS: PREDNISONE 20MG TABLET PO SCH (08:37)
[2019-04-02] MEDS: AMLODIPINE 5MG TABLET PO SCH (08:37)
[2019-04-02] MEDS: FLUTICASONE PROPIONATE 50MCG/SPRAY BOTTLE BOTHNSTRLS SCH (08:39)
[2019-04-02] MEDS: GUAIFENESIN 600MG ER TABLET PO SCH ×2 (10:17→23:00)
[2019-04-02] MEDS: INSULIN GLARGINE UD 100 UNITS/ML SYR SUBCUT SCH ×2 (10:31→23:01)
[2019-04-02 14:04] LABS: PLATELET ESTIMATE NORMAL
[2019-04-02 20:00] VITALS: BP 162/86
[2019-04-02] MEDS: ATORVASTATIN CALCIUM 20MG TABLET PO SCH (22:59)
[2019-04-03] VITALS: BP 130/64
[2019-04-03] MEDS: IPRATROPIUM/ALBUTEROL 0.5-3(2.5)MG/3ML NEB HHN SCH ×4 (01:56→20:17)
[2019-04-03] MEDS: ACETYLCYSTEINE 100MG/ML 10% VIAL 4ML INH SCH ×3 (01:56→20:17)
[2019-04-03] MEDS: GUAIFENESIN/CODEINE 200-20MG/10ML UDC PO PRN (04:41)
[2019-04-03] MEDS: BLOOD SUGAR DIAGNOSTIC STRIP TEST SCH ×4 (05:44→21:30)
[2019-04-03] MEDS: INSULIN LISPRO 100 UNITS/ML SUBCUT SCH ×4 (06:25→21:55)
[2019-04-03 07:00] VITALS: BP 155/62
[2019-04-03] MEDS: FUROSEMIDE 40MG TABLET PO SCH (08:34)
[2019-04-03] MEDS: GUAIFENESIN 600MG ER TABLET PO SCH ×2 (08:34→21:29)
[2019-04-03] MEDS: AMLODIPINE 5MG TABLET PO SCH (08:35)
[2019-04-03] MEDS: LEVOFLOXACIN 250MG TABLET PO SCH (08:35)
[2019-04-03] MEDS: PREDNISONE 10MG TABLET PO SCH (08:35)
[2019-04-03] MEDS: APIXABAN 2.5 MG TABLET PO SCH ×2 (08:35→16:20)
[2019-04-03] MEDS: CARVEDILOL 6.25 MG TABLET PO SCH ×3 (08:35→21:50)
[2019-04-03] MEDS: INSULIN GLARGINE UD 100 UNITS/ML SYR SUBCUT SCH ×2 (09:02→21:57)
[2019-04-03 20:00] VITALS: BP 138/72
[2019-04-03] MEDS: ATORVASTATIN CALCIUM 20MG TABLET PO SCH (21:29)
[2019-04-04] MEDS: IPRATROPIUM/ALBUTEROL 0.5-3(2.5)MG/3ML NEB HHN SCH ×3 (00:09→22:08)
[2019-04-04] MEDS: BLOOD SUGAR DIAGNOSTIC STRIP TEST SCH ×4 (06:30→21:18)
[2019-04-04 07:08] LABS: HEMATOCRIT. 32.4 % (36.0-48.0); HEMOGLOBIN. 10.6 g/dL (12.0-16.0); MEAN CORPUSCULAR HEMOGLOBIN 29.7 pg (28.0-32.0); MEAN CORPUSCULAR VOLUME 90.9 fL (81.0-99.0); MEAN PLATELET VOLUME 9.2 fl (7.4-10.4); PLATELET 152 x1000/uL (130-400); RED BLOOD CELL COUNT 3.56 mill/uL (4.2-5.4); RED CELL DISTRIBUTION WIDTH 14.9 % (11.6-14.6)
[2019-04-04 08:00] VITALS: BP 160/66
[2019-04-04] MEDS: ACETYLCYSTEINE 100MG/ML 10% VIAL 4ML INH SCH ×2 (08:08→22:08)
[2019-04-04 08:29] LABS: CHLORIDE 105 mEq/L (98-107)
[2019-04-04 08:36] LABS: PHOSPHORUS 2.7 mg/dL (2.5-4.9)
[2019-04-04] MEDS: INSULIN LISPRO 100 UNITS/ML SUBCUT SCH ×4 (09:00→22:37)
[2019-04-04] MEDS: FUROSEMIDE 40MG TABLET PO SCH (09:38)
[2019-04-04] MEDS: AMLODIPINE 5MG TABLET PO SCH (09:38)
[2019-04-04] MEDS: APIXABAN 2.5 MG TABLET PO SCH ×2 (09:38→18:00)
[2019-04-04] MEDS: PREDNISONE 10MG TABLET PO SCH (09:38)
[2019-04-04] MEDS: GUAIFENESIN 600MG ER TABLET PO SCH ×2 (09:39→22:34)
[2019-04-04] MEDS ORDERED: IPRA3AMP9 NEB (10:41)
[2019-04-04] MEDS ORDERED: ALBU18HF2 IH (10:41)
[2019-04-04] MEDS ORDERED: FLUT1DIS3 INH (10:41)
[2019-04-04] MEDS ORDERED: BENZ-16 MT (10:47)
[2019-04-04] MEDS: INSULIN GLARGINE UD 100 UNITS/ML SYR SUBCUT SCH ×2 (12:09→22:36)
[2019-04-04 14:30] LABS: PLATELET ESTIMATE NORMAL
[2019-04-04 20:00] VITALS: BP 156/60
[2019-04-04] MEDS: ATORVASTATIN CALCIUM 20MG TABLET PO SCH (22:34)
[2019-04-04] MEDS: CARVEDILOL 6.25 MG TABLET PO SCH (22:35)
[2019-04-05] MEDS: IPRATROPIUM/ALBUTEROL 0.5-3(2.5)MG/3ML NEB HHN SCH ×3 (03:36→16:15)
[2019-04-05 04:11] LABS: 25-HYDROXY VITAMIN D3 16 ng/mL (.)
[2019-04-05] MEDS: BLOOD SUGAR DIAGNOSTIC STRIP TEST SCH ×3 (06:21→16:19)
[2019-04-05] MEDS: INSULIN LISPRO 100 UNITS/ML SUBCUT SCH ×3 (06:21→16:19)
[2019-04-05 08:00] VITALS: BP 146/59
[2019-04-05] MEDS: GUAIFENESIN/CODEINE 200-20MG/10ML UDC PO PRN ×2 (09:54→17:03)
[2019-04-05] MEDS: PREDNISONE 10MG TABLET PO SCH (09:55)
[2019-04-05] MEDS: AMLODIPINE 5MG TABLET PO SCH (09:55)
[2019-04-05] MEDS: CARVEDILOL 6.25 MG TABLET PO SCH (09:56)
[2019-04-05] MEDS: GUAIFENESIN 600MG ER TABLET PO SCH (09:56)
[2019-04-05] MEDS: FUROSEMIDE 40MG TABLET PO SCH (09:56)
[2019-04-05] MEDS: APIXABAN 2.5 MG TABLET PO SCH ×2 (09:56→16:11)
[2019-04-05] MEDS: INSULIN GLARGINE UD 100 UNITS/ML SYR SUBCUT SCH (10:24)
[2019-04-05] MEDS ORDERED: LANTUSUD SUBCUT (14:05)
[2019-04-05] MEDS ORDERED: GUAI600T44 PO (14:05)
[2019-04-05] MEDS ORDERED: APIX2.5T PO (14:05)
[2019-04-05] MEDS ORDERED: PRED10TA PO (14:05)
[2019-04-05] MEDS ORDERED: COR6 PO (14:05)
[2019-04-05] MEDS ORDERED: GUAI10LI9 PO (14:05)
[2019-04-05] MEDS ORDERED: FURO40TA5 PO (14:05)
[2019-04-05] MEDS ORDERED: ATOR20TA PO (14:05)
[2019-04-05] MEDS ORDERED: COR25 PO (14:40)
[2019-04-05] MEDS ORDERED: LISI-186 PO (14:42)
[2019-04-05] MEDS ORDERED: ERGOCALCIFEROL 50000UNITS CAPSULE PO SCH (16:00)
[2019-04-05 18:54] VITALS: BP 133/74
== END 2019-04-05 20:15 | disposition home health service (06) | DRG 291 ==
PROVIDERS: ADMIT Physical Medicine & Rehabilitation Spinal Cord Injury Medicine; ATTEND Internal Medicine Nephrology
DX: I13.0 Hypertensive heart and chronic kidney disease with heart failure and stage 1 through stage 4 chronic kidney disease, or unspecified chronic kidney disease (principal); J96.00 Acute respiratory failure, unspecified whether with hypoxia or hypercapnia; I50.23 Acute on chronic systolic (congestive) heart failure; J44.1 Chronic obstructive pulmonary disease with (acute) exacerbation; N18.4 Chronic kidney disease, stage 4 (severe); I48.20 Chronic atrial fibrillation, unspecified; N17.9 Acute kidney failure, unspecified; E46 Unspecified protein-calorie malnutrition; N39.0 Urinary tract infection, site not specified; I42.9 Cardiomyopathy, unspecified; D64.9 Anemia, unspecified; M1A.9XX0 Chronic gout, unspecified, without tophus (tophi); J06.9 Acute upper respiratory infection, unspecified; E11.649 Type 2 diabetes mellitus with hypoglycemia without coma; E55.9 Vitamin D deficiency, unspecified; R26.9 Unspecified abnormalities of gait and mobility; R53.81 Other malaise; B96.20 Unspecified Escherichia coli [E. coli] as the cause of diseases classified elsewhere; I49.5 Sick sinus syndrome; E03.9 Hypothyroidism, unspecified; E11.42 Type 2 diabetes mellitus with diabetic polyneuropathy; E11.51 Type 2 diabetes mellitus with diabetic peripheral angiopathy without gangrene; E11.22 Type 2 diabetes mellitus with diabetic chronic kidney disease; D72.819 Decreased white blood cell count, unspecified; I27.20 Pulmonary hypertension, unspecified; G31.84 Mild cognitive impairment of uncertain or unknown etiology; F39 Unspecified mood [affective] disorder; E78.00 Pure hypercholesterolemia, unspecified; Z79.01 Long term (current) use of anticoagulants; Z86.73 Personal history of transient ischemic attack (TIA), and cerebral infarction without residual deficits; Z95.0 Presence of cardiac pacemaker; Z88.0 Allergy status to penicillin; Z87.891 Personal history of nicotine dependence; Z82.49 Family history of ischemic heart disease and other diseases of the circulatory system
CPT/HCPCS: 36415; 36600; 71045; 80048; 80053; 82306; 82375; 82805; 82962; 83735; 84100; 84134; 85025; 92610; 93970; 94640; 94667; 97110; 97116; 97150; 97162; 97166; 97530; 97535; J1815; J1940; J1956; J3490; J7512; J7608; J7620

== ENCOUNTER → 2019-05-04 | Outpatient (CLI) | payer MEDICARE, MEDICAID ==
[~2019-05-04] MED LIST changes: +ALBU18HF2 IH; +APIX2.5T PO; -ASPI325T85 PO; +ATOR20TA PO; +BENZ-16 MT; +COR25 PO; +COR6 PO; -FURO-152 PO; +FURO40TA5 PO; +GUAI10LI9 PO; +GUAI600T44 PO; -KDUR20 PO; -LANTUS; +LANTUSUD SUBCUT; -LEVPEN SQ; +LISI-186 PO; -LISI-604 PO; -METO50TA95 PO; -OMEP20CA4 PO; +PRED10TA PO; -RIVA20TA PO; -SIMV-43 PO; -TAP5 PO
== END | disposition home or self-care (01) ==
LOC: US 10:15
PROVIDERS: ATTEND Internal Medicine Nephrology
DX: C85.91 Non-Hodgkin lymphoma, unspecified, lymph nodes of head, face, and neck (principal); E04.1 Nontoxic single thyroid nodule; E04.9 Nontoxic goiter, unspecified
CPT/HCPCS: 76536

== ENCOUNTER 2019-05-09 11:18 | Inpatient (IN) | payer MEDICARE, MEDICAID ==
[~2019-05-09] VITALS: Ht 162.6 cm; Wt 74.8 kg
[2019-05-09 12:08] LABS: BASOPHILS % 1.1 % (0.0-2.0); EOSINOPHILS % 1.1 % (0.0-5.0); HEMATOCRIT. 37.4 % (36.0-48.0); HEMOGLOBIN. 12.4 g/dL (12.0-16.0); LYMPHOCYTES % 12.8 % (20.0-50.0); MEAN CORPUSCULAR VOLUME 90.1 fL (81.0-99.0); MEAN PLATELET VOLUME 8.1 fl (7.4-10.4); MONOCYTES % 7.1 % (2.0-8.0); NEUTROPHILS % 77.9 % (40.0-76.0); PLATELET 210 x1000/uL (130-400); RED BLOOD CELL COUNT 4.15 mill/uL (4.2-5.4)
[2019-05-09 12:14] LABS: CHLORIDE 104 mEq/L (98-107)
[2019-05-09 12:19] LABS: INR 1.1
[2019-05-09] MEDS ORDERED: ASPIRIN 325MG EC TABLET PO NR (12:53)
[2019-05-09] MEDS ORDERED: ACETAMINOPHEN 325MG TABLET PO PRN (14:00)
[2019-05-09] MEDS ORDERED: IPRATROPIUM/ALBUTEROL 0.5-3(2.5)MG/3ML NEB HHN PRN (14:00)
[2019-05-09] MEDS ORDERED: DEXTROSE 50% WATER 50ML SYRINGE IV PRN ×2 (14:00→22:00)
[2019-05-09] MEDS ORDERED: ONDANSETRON HCL 4MG/2ML INJ IV PRN (14:00)
[2019-05-09] MEDS ORDERED: FUROSEMIDE 40MG/4ML VIAL IVP NR (15:45)
[2019-05-09 16:06] LABS: CLARITY URINE CLEAR (CLEAR); COLOR URINE YELLOW (YELLOW); KETONES URINE NEGATIVE (NEGATIVE); LEUKOCYTE ESTERASE URINE NEGATIVE (NEGATIVE); NITRITE URINE NEGATIVE (NEGATIVE); OCCULT BLOOD URINE NEGATIVE (NEGATIVE); PH URINE 7.5 (4.5-8.0); PROTEIN URINE 2+ (NEGATIVE); SPECIFIC GRAVITY URINE 1.013 (1.005-1.030); UROBILINOGEN URINE 0.2 E.U./dL (0.2-1.0)
[2019-05-09] MEDS ORDERED: APIXABAN 5 MG TABLET PO SCH (17:00)
[2019-05-09] MEDS: INSULIN LISPRO 100 UNITS/ML SUBCUT SCH ×2 (18:20→22:20)
[2019-05-09] MEDS ORDERED: LOSARTAN POTASSIUM 50 MG TABLET PO SCH (18:47)
[2019-05-09] MEDS: BLOOD SUGAR DIAGNOSTIC STRIP TEST SCH ×2 (18:54→22:20)
[2019-05-09] MEDS: APIXABAN 2.5 MG TABLET PO SCH (19:00)
[2019-05-09] MEDS ORDERED: CARVEDILOL 6.25 MG TABLET PO NR (21:01)
[2019-05-09] MEDS: ATORVASTATIN CALCIUM 20MG TABLET PO SCH (22:19)
[2019-05-09 22:41] VITALS: BP 154/56
[2019-05-09 23:09] VITALS: BP 154/56
[2019-05-10] VITALS: BP 147/64
[2019-05-10 04:00] VITALS: BP 138/53
[2019-05-10] MEDS: BLOOD SUGAR DIAGNOSTIC STRIP TEST SCH ×4 (06:22→20:35)
[2019-05-10 06:50] LABS: EOSINOPHILS % 2.8 % (0.0-5.0); HEMATOCRIT. 32.8 % (36.0-48.0); HEMOGLOBIN. 10.7 g/dL (12.0-16.0); LYMPHOCYTES % 27.3 % (20.0-50.0); MEAN CORPUSCULAR HEMOGLOBIN 29.6 pg (28.0-32.0); MEAN CORPUSCULAR VOLUME 90.8 fL (81.0-99.0); MEAN PLATELET VOLUME 9.1 fl (7.4-10.4); MONOCYTES % 13.4 % (2.0-8.0); NEUTROPHILS % 55.5 % (40.0-76.0); PLATELET 187 x1000/uL (130-400); RED BLOOD CELL COUNT 3.61 mill/uL (4.2-5.4); RED CELL DISTRIBUTION WIDTH 14.1 % (11.6-14.6)
[2019-05-10] MEDS ORDERED: BLOOD SUGAR DIAGNOSTIC STRIP TEST SCH (07:20)
[2019-05-10] MEDS ORDERED: INSULIN LISPRO 100 UNITS/ML SUBCUT SCH (07:50)
[2019-05-10 08:00] VITALS: BP 142/59
[2019-05-10] MEDS: LOSARTAN POTASSIUM 50 MG TABLET PO SCH ×2 (08:38→20:35)
[2019-05-10] MEDS: APIXABAN 2.5 MG TABLET PO SCH ×2 (08:38→17:39)
[2019-05-10] MEDS: CARVEDILOL 6.25 MG TABLET PO SCH ×2 (08:39→20:35)
[2019-05-10] MEDS: INSULIN LISPRO 100 UNITS/ML SUBCUT SCH ×4 (08:45→20:34)
[2019-05-10 12:00] VITALS: BP 114/50
[2019-05-10 16:00] VITALS: BP 146/77
[2019-05-10] MEDS ORDERED: FURO40TA5 PO ×2 (18:08)
[2019-05-10] MEDS ORDERED: GABA-529 PO (18:09)
[2019-05-10 20:00] VITALS: BP 149/65
[2019-05-10] MEDS: ATORVASTATIN CALCIUM 20MG TABLET PO SCH (20:35)
[2019-05-11] VITALS: BP 148/58
[2019-05-11 04:00] VITALS: BP 145/51
[2019-05-11] MEDS: BLOOD SUGAR DIAGNOSTIC STRIP TEST SCH ×4 (06:25→20:46)
[2019-05-11 07:58] LABS: HEMATOCRIT. 31.3 % (36.0-48.0); HEMOGLOBIN. 10.5 g/dL (12.0-16.0); MEAN CORPUSCULAR HEMOGLOBIN 30.3 pg (28.0-32.0); MEAN CORPUSCULAR VOLUME 90.1 fL (81.0-99.0); MEAN PLATELET VOLUME 9.1 fl (7.4-10.4); PLATELET 185 x1000/uL (130-400); RED BLOOD CELL COUNT 3.48 mill/uL (4.2-5.4); RED CELL DISTRIBUTION WIDTH 13.9 % (11.6-14.6)
[2019-05-11 08:00] VITALS: BP 144/60
[2019-05-11] MEDS: INSULIN LISPRO 100 UNITS/ML SUBCUT SCH ×3 (09:39→20:48)
[2019-05-11] MEDS: CARVEDILOL 6.25 MG TABLET PO SCH ×2 (09:39→20:45)
[2019-05-11] MEDS: LOSARTAN POTASSIUM 50 MG TABLET PO SCH ×2 (09:39→20:45)
[2019-05-11] MEDS: APIXABAN 2.5 MG TABLET PO SCH ×2 (09:39→16:35)
[2019-05-11 10:33] LABS: PLATELET ESTIMATE NORMAL
[2019-05-11 12:36] VITALS: BP 144/60
[2019-05-11 20:00] VITALS: BP 163/56
[2019-05-11] MEDS: ATORVASTATIN CALCIUM 20MG TABLET PO SCH (20:45)
== END 2019-05-11 20:45 | disposition home or self-care (01) | DRG 637 ==
LOC: ER 11:18 → EDBEDREQ 14:02 → EDBEDREQTM 14:02 → ENRESERV 21:23 → 6WST 21:38
PROVIDERS: ADMIT Internal Medicine Nephrology; ATTEND Internal Medicine Nephrology
DX: E11.649 Type 2 diabetes mellitus with hypoglycemia without coma (principal); G93.41 Metabolic encephalopathy; I50.23 Acute on chronic systolic (congestive) heart failure; I13.0 Hypertensive heart and chronic kidney disease with heart failure and stage 1 through stage 4 chronic kidney disease, or unspecified chronic kidney disease; I42.9 Cardiomyopathy, unspecified; I48.20 Chronic atrial fibrillation, unspecified; D64.9 Anemia, unspecified; N17.9 Acute kidney failure, unspecified; E11.22 Type 2 diabetes mellitus with diabetic chronic kidney disease; E78.00 Pure hypercholesterolemia, unspecified; E78.5 Hyperlipidemia, unspecified; I25.10 Atherosclerotic heart disease of native coronary artery without angina pectoris; I27.21 Secondary pulmonary arterial hypertension; M10.9 Gout, unspecified; N18.9 Chronic kidney disease, unspecified; Z79.01 Long term (current) use of anticoagulants; Z86.73 Personal history of transient ischemic attack (TIA), and cerebral infarction without residual deficits; Z95.0 Presence of cardiac pacemaker; Z88.0 Allergy status to penicillin; Z79.899 Other long term (current) drug therapy
CPT/HCPCS: 36415; 71045; 80048; 80053; 81003; 82962; 83036; 84484; 85025; 93005; 97162; 99291; J1815; J1940

== ENCOUNTER 2019-08-09 11:42 | Inpatient (IN) | payer MEDICARE, MEDICAID ==
[~2019-08-09] VITALS: Ht 162.6 cm; Wt 86.2 kg
[~2019-08-09 11:42] MED LIST changes: -AMLO5TAB4 PO; -BENZ-16 MT; -COR6 PO; -GUAI10LI9 PO; -GUAI600T44 PO; -HYDR-3927 PO; -LISI-186 PO; -PRED10TA PO
[2019-08-09] MEDS ORDERED: FUROSEMIDE 20MG/2ML VIAL IVP ONE (12:45)
[2019-08-09 13:12] LABS: BASOPHILS % 0.3 % (0.0-2.0); HEMATOCRIT. 33.3 % (36.0-48.0); HEMOGLOBIN. 10.7 g/dL (12.0-16.0); LYMPHOCYTES % 19.5 % (20.0-50.0); MEAN CORPUSCULAR HEMOGLOBIN 29.3 pg (28.0-32.0); MEAN CORPUSCULAR VOLUME 90.9 fL (81.0-99.0); MEAN PLATELET VOLUME 9.5 fl (7.4-10.4); MONOCYTES % 13.6 % (2.0-8.0); NEUTROPHILS % 62.6 % (40.0-76.0); PLATELET 136 x1000/uL (130-400); RED BLOOD CELL COUNT 3.67 mill/uL (4.2-5.4); RED CELL DISTRIBUTION WIDTH 14.7 % (11.6-14.6)
[2019-08-09 13:18] LABS: CHLORIDE 109 mEq/L (98-107)
[2019-08-09] MEDS ORDERED: MAGNESIUM 2 G PREMIX 50 ML IV STA (13:35)
[2019-08-09] MEDS ORDERED: METHYLPREDNISOLONE SOD SUCC 125 MG/2 ML VIAL IV STA (13:35)
[2019-08-09] MEDS ORDERED: ALBUTEROL (0.083%) 2.5MG/3ML NEB HHN STA (13:35)
[2019-08-09] MEDS ORDERED: IPRATROPIUM BROMIDE (0.02%) 0.5MG/2.5ML NEB HHN STA (13:35)
[2019-08-09] MEDS ORDERED: IPRATROPIUM/ALBUTEROL 0.5-3(2.5)MG/3ML NEB NEB PRN (16:15)
[2019-08-09] MEDS ORDERED: ACETAMINOPHEN 325MG TABLET PO PRN (16:15)
[2019-08-09] MEDS ORDERED: ONDANSETRON HCL 4MG/2ML INJ IV PRN (16:15)
[2019-08-09] MEDS ORDERED: HYDROCODONE/ACETAMINOPHEN 5/325MG TABLET PO PRN (16:15)
[2019-08-09] MEDS ORDERED: MORPHINE SULFATE 2 MG/ML CPJ (NOT FOR IM USE) IV PRN (16:15)
[2019-08-09] MEDS ORDERED: ENOXAPARIN 30MG/0.3ML SYR SUBCUT SCH (16:30)
[2019-08-09] MEDS: FUROSEMIDE 40MG/4ML VIAL IV SCH (17:43)
[2019-08-09] MEDS: METHYLPREDNISOLONE SOD SUCC 125 MG/2 ML VIAL IV SCH ×2 (17:43→23:46)
[2019-08-09] MEDS: CLONIDINE 0.1MG TABLET PO PRN (17:45)
[2019-08-09 18:22] VITALS: BP 171/77
[2019-08-09] MEDS ORDERED: POTA10CA42 MT (18:40)
[2019-08-09] MEDS ORDERED: ATOR40TA70 MT (18:40)
[2019-08-09] MEDS ORDERED: OMEP20CA14 MT (18:40)
[2019-08-09] MEDS ORDERED: SIMV-43 MT (18:40)
[2019-08-09] MEDS ORDERED: DICL2.5D8 EACHEYE (18:40)
[2019-08-09 20:00] VITALS: BP 159/67
[2019-08-09] MEDS ORDERED: ALBUTEROL (0.083%) 2.5MG/3ML NEB HHN PRN (20:45)
[2019-08-09] MEDS ORDERED: DEXTROSE 50% WATER 50ML SYRINGE IV PRN (20:45)
[2019-08-09] MEDS: INSULIN LISPRO 100 UNITS/ML SUBCUT SCH (20:49)
[2019-08-09] MEDS: BLOOD SUGAR DIAGNOSTIC STRIP TEST SCH (20:50)
[2019-08-10] VITALS: BP 157/85
[2019-08-10 00:01] LABS: CREATINE KINASE MB FRACTION 2.7 ng/mL (0.5-3.6)
[2019-08-10 04:00] VITALS: BP 171/71
[2019-08-10] MEDS: METHYLPREDNISOLONE SOD SUCC 125 MG/2 ML VIAL IV SCH (04:10)
[2019-08-10] MEDS: FUROSEMIDE 40MG/4ML VIAL IV SCH ×2 (06:21→18:04)
[2019-08-10] MEDS: BLOOD SUGAR DIAGNOSTIC STRIP TEST SCH ×4 (06:22→21:05)
[2019-08-10] MEDS: INSULIN LISPRO 100 UNITS/ML SUBCUT SCH ×4 (06:37→21:14)
[2019-08-10 08:00] VITALS: BP 163/66
[2019-08-10 08:38] LABS: HEMATOCRIT. 32.3 % (36.0-48.0); HEMOGLOBIN. 10.7 g/dL (12.0-16.0); MEAN CORPUSCULAR HEMOGLOBIN 29.7 pg (28.0-32.0); MEAN CORPUSCULAR VOLUME 89.8 fL (81.0-99.0); MEAN PLATELET VOLUME 9.9 fl (7.4-10.4); PLATELET 134 x1000/uL (130-400); RED CELL DISTRIBUTION WIDTH 14.8 % (11.6-14.6)
[2019-08-10] MEDS: ALLOPURINOL 100 MG TABLET PO SCH (08:53)
[2019-08-10] MEDS: ASPIRIN 81MG EC TABLET PO SCH (08:53)
[2019-08-10] MEDS: APIXABAN 2.5 MG TABLET PO SCH ×2 (08:53→18:04)
[2019-08-10] MEDS: GABAPENTIN 100MG CAPSULE PO SCH ×2 (08:54→18:04)
[2019-08-10] MEDS: CLONIDINE 0.1MG TABLET PO PRN (08:54)
[2019-08-10] MEDS ORDERED: FUROSEMIDE 40MG TABLET PO SCH ×2 (09:00→17:00)
[2019-08-10 09:05] LABS: PHOSPHORUS 3.8 mg/dL (2.5-4.9)
[2019-08-10 09:12] LABS: CREATINE KINASE MB FRACTION 2.6 ng/mL (0.5-3.6)
[2019-08-10] MEDS ORDERED: INSULIN GLARGINE UD 100 UNITS/ML SYR SUBCUT SCH (10:00)
[2019-08-10] MEDS: DICLOFENAC SODIUM 0.1% OPHTH 2.5 ML BOTTLE EACHEYE SCH ×3 (12:49→21:21)
[2019-08-10 14:39] LABS: PLATELET ESTIMATE NORMAL
[2019-08-10 16:00] VITALS: BP 150/52
[2019-08-10 20:00] VITALS: BP 149/65
[2019-08-10] MEDS: BUDESONIDE 0.5MG/2ML NEB HHN SCH (20:37)
[2019-08-10] MEDS: IPRATROPIUM/ALBUTEROL 0.5-3(2.5)MG/3ML NEB HHN SCH (20:40)
[2019-08-10] MEDS ORDERED: ATORVASTATIN CALCIUM 20MG TABLET PO SCH (21:00)
[2019-08-10] MEDS: INSULIN GLARGINE UD 100 UNITS/ML SYR SUBCUT SCH (21:13)
[2019-08-10] MEDS: ATORVASTATIN CALCIUM 40MG TABLET PO SCH (21:20)
[2019-08-10] MEDS: CARVEDILOL 12.5MG TABLET PO SCH (21:20)
[2019-08-11] VITALS: BP 159/72
[2019-08-11] MEDS: IPRATROPIUM/ALBUTEROL 0.5-3(2.5)MG/3ML NEB HHN SCH ×4 (03:01→20:57)
[2019-08-11 04:00] VITALS: BP 149/64
[2019-08-11] MEDS: FUROSEMIDE 40MG/4ML VIAL IV SCH ×2 (06:21→17:49)
[2019-08-11 06:32] LABS: BASOPHILS % 0.1 % (0.0-2.0); HEMATOCRIT. 31.1 % (36.0-48.0); HEMOGLOBIN. 10.4 g/dL (12.0-16.0); LYMPHOCYTES % 9.6 % (20.0-50.0); MEAN CORPUSCULAR HEMOGLOBIN 29.6 pg (28.0-32.0); MEAN CORPUSCULAR VOLUME 88.9 fL (81.0-99.0); MEAN PLATELET VOLUME 9.8 fl (7.4-10.4); NEUTROPHILS % 76.3 % (40.0-76.0); PLATELET 131 x1000/uL (130-400); RED CELL DISTRIBUTION WIDTH 14.5 % (11.6-14.6)
[2019-08-11] MEDS: BLOOD SUGAR DIAGNOSTIC STRIP TEST SCH ×4 (06:40→21:43)
[2019-08-11] MEDS: INSULIN LISPRO 100 UNITS/ML SUBCUT SCH ×4 (06:40→22:06)
[2019-08-11] MEDS: ALLOPURINOL 100 MG TABLET PO SCH (09:04)
[2019-08-11] MEDS: APIXABAN 2.5 MG TABLET PO SCH ×2 (09:04→17:49)
[2019-08-11] MEDS: GABAPENTIN 100MG CAPSULE PO SCH ×2 (09:05→17:49)
[2019-08-11] MEDS: CARVEDILOL 12.5MG TABLET PO SCH ×2 (09:05→21:42)
[2019-08-11] MEDS: ASPIRIN 81MG EC TABLET PO SCH (09:05)
[2019-08-11] MEDS: DICLOFENAC SODIUM 0.1% OPHTH 2.5 ML BOTTLE EACHEYE SCH ×4 (09:13→21:44)
[2019-08-11] MEDS: BUDESONIDE 0.5MG/2ML NEB HHN SCH ×2 (09:25→20:57)
[2019-08-11] MEDS: INSULIN GLARGINE UD 100 UNITS/ML SYR SUBCUT SCH ×2 (10:10→22:07)
[2019-08-11] MEDS: CLONIDINE 0.1MG TABLET PO PRN (10:29)
[2019-08-11 12:00] VITALS: BP 156/65
[2019-08-11] MEDS ORDERED: AMLODIPINE 5MG TABLET PO SCH (12:00)
[2019-08-11 16:00] VITALS: BP 150/103
[2019-08-11 17:04] VITALS: BP 152/60
[2019-08-11 20:00] VITALS: BP 141/66
[2019-08-11] MEDS: AMLODIPINE 5MG TABLET PO SCH (21:42)
[2019-08-11] MEDS: ATORVASTATIN CALCIUM 40MG TABLET PO SCH (21:42)
[2019-08-11] MEDS ORDERED: MAGNESIUM/ALUMINUM HYDROXIDE/SIMETHICONE 30ML UDC PO PRN (23:45)
[2019-08-12] VITALS: BP 133/53
[2019-08-12] MEDS: OMEPRAZOLE 20MG CAPSULE EXTENDED RELEASE PO SCH (00:13)
[2019-08-12] MEDS: IPRATROPIUM/ALBUTEROL 0.5-3(2.5)MG/3ML NEB HHN SCH ×4 (02:59→21:13)
[2019-08-12 04:00] VITALS: BP 135/60
[2019-08-12] MEDS: BUDESONIDE 0.5MG/2ML NEB HHN SCH ×3 (06:00→21:13)
[2019-08-12] MEDS: BLOOD SUGAR DIAGNOSTIC STRIP TEST SCH ×4 (06:29→21:17)
[2019-08-12] MEDS: FUROSEMIDE 40MG/4ML VIAL IV SCH ×2 (06:37→16:51)
[2019-08-12] MEDS: INSULIN LISPRO 100 UNITS/ML SUBCUT SCH ×5 (06:45→21:00)
[2019-08-12 07:10] LABS: BASOPHILS % 0.8 % (0.0-2.0); EOSINOPHILS % 2.7 % (0.0-5.0); HEMATOCRIT. 29.7 % (36.0-48.0); HEMOGLOBIN. 10.2 g/dL (12.0-16.0); MEAN CORPUSCULAR HEMOGLOBIN 30.7 pg (28.0-32.0); MEAN CORPUSCULAR VOLUME 89.2 fL (81.0-99.0); MEAN PLATELET VOLUME 9.4 fl (7.4-10.4); MONOCYTES % 13.7 % (2.0-8.0); NEUTROPHILS % 55.8 % (40.0-76.0); PLATELET 140 x1000/uL (130-400); RED BLOOD CELL COUNT 3.33 mill/uL (4.2-5.4); RED CELL DISTRIBUTION WIDTH 14.8 % (11.6-14.6)
[2019-08-12 08:13] VITALS: BP 116/70
[2019-08-12] MEDS: DICLOFENAC SODIUM 0.1% OPHTH 2.5 ML BOTTLE EACHEYE SCH ×4 (08:14→21:17)
[2019-08-12] MEDS: CARVEDILOL 12.5MG TABLET PO SCH ×2 (08:14→21:13)
[2019-08-12] MEDS: ALLOPURINOL 100 MG TABLET PO SCH (08:57)
[2019-08-12] MEDS: AMLODIPINE 5MG TABLET PO SCH ×2 (08:57→21:16)
[2019-08-12] MEDS: APIXABAN 2.5 MG TABLET PO SCH (08:57)
[2019-08-12] MEDS: GABAPENTIN 100MG CAPSULE PO SCH ×2 (08:57→16:51)
[2019-08-12] MEDS: ASPIRIN 81MG EC TABLET PO SCH (08:57)
[2019-08-12] MEDS: INSULIN GLARGINE UD 100 UNITS/ML SYR SUBCUT SCH ×2 (09:36→21:17)
[2019-08-12 11:55] LABS: INR 1.1; PROTHROMBIN TIME 12.2 sec (9.6-11.0)
[2019-08-12 12:30] VITALS: BP 127/80
[2019-08-12 15:54] VITALS: BP 118/75
[2019-08-12 20:00] VITALS: BP 145/76
[2019-08-12] MEDS: ATORVASTATIN CALCIUM 40MG TABLET PO SCH (21:12)
[2019-08-12] MEDS: ENOXAPARIN 100MG/ML SYR SUBCUT SCH (21:17)
[2019-08-13] VITALS: BP 130/54
[2019-08-13] MEDS: IPRATROPIUM/ALBUTEROL 0.5-3(2.5)MG/3ML NEB HHN SCH ×4 (02:39→20:54)
[2019-08-13 04:00] VITALS: BP 132/48
[2019-08-13] MEDS: BLOOD SUGAR DIAGNOSTIC STRIP TEST SCH ×4 (06:00→20:29)
[2019-08-13] MEDS: OMEPRAZOLE 20MG CAPSULE EXTENDED RELEASE PO SCH (06:00)
[2019-08-13] MEDS: INSULIN LISPRO 100 UNITS/ML SUBCUT SCH ×4 (06:16→20:31)
[2019-08-13] MEDS: FUROSEMIDE 40MG/4ML VIAL IV SCH ×2 (06:16→18:27)
[2019-08-13 08:00] VITALS: BP 122/63
[2019-08-13] MEDS: BUDESONIDE 0.5MG/2ML NEB HHN SCH (09:11)
[2019-08-13] MEDS: AMLODIPINE 5MG TABLET PO SCH ×2 (09:59→20:29)
[2019-08-13] MEDS: ASPIRIN 81MG EC TABLET PO SCH (09:59)
[2019-08-13] MEDS: ALLOPURINOL 100 MG TABLET PO SCH (09:59)
[2019-08-13] MEDS: GABAPENTIN 100MG CAPSULE PO SCH ×2 (09:59→18:27)
[2019-08-13] MEDS: DICLOFENAC SODIUM 0.1% OPHTH 2.5 ML BOTTLE EACHEYE SCH ×4 (10:00→21:05)
[2019-08-13] MEDS: CARVEDILOL 12.5MG TABLET PO SCH ×2 (10:00→20:29)
[2019-08-13 12:00] VITALS: BP 142/63
[2019-08-13 16:00] VITALS: BP 136/54
[2019-08-13 20:00] VITALS: BP 139/58
[2019-08-13] MEDS: ATORVASTATIN CALCIUM 40MG TABLET PO SCH (20:28)
[2019-08-13] MEDS: ENOXAPARIN 100MG/ML SYR SUBCUT SCH (20:29)
[2019-08-14] VITALS (7 sets, daily range): BP systolic 120–148; BP diastolic 48–79
[2019-08-14] MEDS: IPRATROPIUM/ALBUTEROL 0.5-3(2.5)MG/3ML NEB HHN SCH ×3 (01:29→14:35)
[2019-08-14 05:55] LABS: BASOPHILS % 0.7 % (0.0-2.0); EOSINOPHILS % 5.5 % (0.0-5.0); HEMATOCRIT. 30.5 % (36.0-48.0); HEMOGLOBIN. 10.1 g/dL (12.0-16.0); LYMPHOCYTES % 27.1 % (20.0-50.0); MEAN CORPUSCULAR HEMOGLOBIN 29.7 pg (28.0-32.0); MEAN CORPUSCULAR VOLUME 89.9 fL (81.0-99.0); MEAN PLATELET VOLUME 9.7 fl (7.4-10.4); MONOCYTES % 13.9 % (2.0-8.0); NEUTROPHILS % 52.8 % (40.0-76.0); PLATELET 138 x1000/uL (130-400); RED CELL DISTRIBUTION WIDTH 14.5 % (11.6-14.6)
[2019-08-14] MEDS: OMEPRAZOLE 20MG CAPSULE EXTENDED RELEASE PO SCH (06:17)
[2019-08-14] MEDS: FUROSEMIDE 40MG/4ML VIAL IV SCH ×2 (06:19→16:55)
[2019-08-14] MEDS: INSULIN LISPRO 100 UNITS/ML SUBCUT SCH ×4 (06:29→21:33)
[2019-08-14] MEDS: BLOOD SUGAR DIAGNOSTIC STRIP TEST SCH ×4 (06:29→21:22)
[2019-08-14] MEDS: ALLOPURINOL 100 MG TABLET PO SCH (09:20)
[2019-08-14] MEDS: AMLODIPINE 5MG TABLET PO SCH ×2 (09:20→21:32)
[2019-08-14] MEDS: DICLOFENAC SODIUM 0.1% OPHTH 2.5 ML BOTTLE EACHEYE SCH ×4 (09:21→21:41)
[2019-08-14] MEDS: CARVEDILOL 12.5MG TABLET PO SCH ×2 (09:21→21:40)
[2019-08-14] MEDS: ASPIRIN 81MG EC TABLET PO SCH (09:21)
[2019-08-14] MEDS: GABAPENTIN 100MG CAPSULE PO SCH ×2 (09:22→16:55)
[2019-08-14] MEDS: GUAIFENESIN 600MG ER TABLET PO SCH (21:32)
[2019-08-14] MEDS: ATORVASTATIN CALCIUM 40MG TABLET PO SCH (21:32)
[2019-08-14] MEDS: ENOXAPARIN 100MG/ML SYR SUBCUT SCH (21:34)
[2019-08-15] VITALS: BP 146/66
[2019-08-15] MEDS: IPRATROPIUM/ALBUTEROL 0.5-3(2.5)MG/3ML NEB HHN SCH ×2 (00:18→07:50)
[2019-08-15 04:00] VITALS: BP 147/79
[2019-08-15] MEDS: BLOOD SUGAR DIAGNOSTIC STRIP TEST SCH (06:26)
[2019-08-15] MEDS: OMEPRAZOLE 20MG CAPSULE EXTENDED RELEASE PO SCH (06:47)
[2019-08-15] MEDS: FUROSEMIDE 40MG/4ML VIAL IV SCH (06:47)
[2019-08-15] MEDS: INSULIN LISPRO 100 UNITS/ML SUBCUT SCH (06:48)
[2019-08-15 08:00] VITALS: BP 133/53
[2019-08-15] MEDS: GABAPENTIN 100MG CAPSULE PO SCH (08:03)
[2019-08-15] MEDS: ASPIRIN 81MG EC TABLET PO SCH (08:03)
[2019-08-15] MEDS: GUAIFENESIN 600MG ER TABLET PO SCH (08:03)
[2019-08-15] MEDS: AMLODIPINE 5MG TABLET PO SCH (08:03)
[2019-08-15] MEDS: ALLOPURINOL 100 MG TABLET PO SCH (08:03)
[2019-08-15] MEDS: CARVEDILOL 12.5MG TABLET PO SCH (08:04)
[2019-08-15] MEDS: DICLOFENAC SODIUM 0.1% OPHTH 2.5 ML BOTTLE EACHEYE SCH (08:06)
== END 2019-08-15 10:15 | disposition home or self-care (01) | DRG 291 ==
LOC: ER 11:42 → EDBEDREQ 14:03 → MICUSO 14:14 → 5WST 16:50
PROVIDERS: ADMIT Internal Medicine Nephrology; ATTEND Internal Medicine Nephrology
DX: I13.0 Hypertensive heart and chronic kidney disease with heart failure and stage 1 through stage 4 chronic kidney disease, or unspecified chronic kidney disease (principal); I50.23 Acute on chronic systolic (congestive) heart failure; J96.20 Acute and chronic respiratory failure, unspecified whether with hypoxia or hypercapnia; J44.1 Chronic obstructive pulmonary disease with (acute) exacerbation; N17.9 Acute kidney failure, unspecified; E44.1 Mild protein-calorie malnutrition; I48.20 Chronic atrial fibrillation, unspecified; I42.9 Cardiomyopathy, unspecified; N18.3 Chronic kidney disease, stage 3 (moderate); E87.8 Other disorders of electrolyte and fluid balance, not elsewhere classified; D64.9 Anemia, unspecified; I27.21 Secondary pulmonary arterial hypertension; I25.10 Atherosclerotic heart disease of native coronary artery without angina pectoris; D72.810 Lymphocytopenia; M10.9 Gout, unspecified; R26.9 Unspecified abnormalities of gait and mobility; E11.22 Type 2 diabetes mellitus with diabetic chronic kidney disease; E66.9 Obesity, unspecified; E78.5 Hyperlipidemia, unspecified; E11.51 Type 2 diabetes mellitus with diabetic peripheral angiopathy without gangrene; E78.00 Pure hypercholesterolemia, unspecified; Z96.659 Presence of unspecified artificial knee joint; Z79.01 Long term (current) use of anticoagulants; Z99.81 Dependence on supplemental oxygen; Z79.899 Other long term (current) drug therapy; Z86.73 Personal history of transient ischemic attack (TIA), and cerebral infarction without residual deficits; Z87.891 Personal history of nicotine dependence; Z88.0 Allergy status to penicillin; Z79.4 Long term (current) use of insulin; Z79.84 Long term (current) use of oral hypoglycemic drugs; Z68.32 Body mass index [BMI] 32.0-32.9, adult; Z95.810 Presence of automatic (implantable) cardiac defibrillator
CPT/HCPCS: 36415; 71045; 76536; 80048; 80053; 82550; 82553; 82962; 83036; 83735; 83880; 84100; 84145; 84443; 84484; 85025; 93005; 93306; 94640; 94644; 97116; 97162; 97166; 99291; J1650; J1815; J1940; J2930; J3475; J7626

== ENCOUNTER 2019-09-24 15:12 | Inpatient (IN) | payer MEDICARE, MEDICAID ==
[~2019-09-24] VITALS: Ht 162.6 cm; Wt 72.1 kg
[~2019-09-24 15:12] MED LIST changes: +ATOR40TA70 MT; +DICL2.5D8 EACHEYE; +OMEP20CA14 MT; +POTA10CA42 MT; +SIMV-43 MT
[2019-09-24] MEDS ORDERED: ASPIRIN 81MG TABLET PO ONE (18:00)
[2019-09-24] MEDS ORDERED: NITROGLYCERIN OINT 1GM/INCH UDPKT TD ONE (18:00)
[2019-09-24] MEDS ORDERED: FUROSEMIDE 40MG/4ML VIAL IV ONE (18:00)
[2019-09-24 18:20] LABS: BASOPHILS % 0.8 % (0.0-2.0); EOSINOPHILS % 2.3 % (0.0-5.0); HEMATOCRIT. 33.2 % (36.0-48.0); HEMOGLOBIN. 10.9 g/dL (12.0-16.0); LYMPHOCYTES % 17.2 % (20.0-50.0); MEAN CORPUSCULAR HEMOGLOBIN 29.3 pg (28.0-32.0); MEAN CORPUSCULAR VOLUME 89.1 fL (81.0-99.0); MEAN PLATELET VOLUME 9.2 fl (7.4-10.4); MONOCYTES % 9.1 % (2.0-8.0); NEUTROPHILS % 70.6 % (40.0-76.0); PLATELET 114 x1000/uL (130-400); RED BLOOD CELL COUNT 3.72 mill/uL (4.2-5.4); RED CELL DISTRIBUTION WIDTH 14.9 % (11.6-14.6)
[2019-09-24 18:23] LABS: CHLORIDE 110 mEq/L (98-107)
[2019-09-24] MEDS ORDERED: ACETAMINOPHEN 325MG TABLET PO PRN (22:30)
[2019-09-24] MEDS ORDERED: CLONIDINE 0.1MG TABLET PO PRN (22:30)
[2019-09-24] MEDS ORDERED: ONDANSETRON HCL 4MG/2ML INJ IV PRN (22:30)
[2019-09-24] MEDS ORDERED: MORPHINE SULFATE 2 MG/ML CPJ (NOT FOR IM USE) IV PRN (22:30)
[2019-09-24] MEDS ORDERED: IPRATROPIUM/ALBUTEROL 0.5-3(2.5)MG/3ML NEB NEB PRN (22:30)
[2019-09-24] MEDS ORDERED: HYDROCODONE/ACETAMINOPHEN 5/325MG TABLET PO PRN (22:30)
[2019-09-24] MEDS: FUROSEMIDE 40MG/4ML VIAL IV SCH (22:45)
[2019-09-24] MEDS: ALLOPURINOL 100 MG TABLET PO SCH (23:52)
[2019-09-24] MEDS: GABAPENTIN 100MG CAPSULE PO SCH (23:52)
[2019-09-25] MEDS: FUROSEMIDE 40MG/4ML VIAL IV SCH ×2 (08:01→18:00)
[2019-09-25] MEDS: OMEPRAZOLE 20MG CAPSULE EXTENDED RELEASE PO SCH (08:01)
[2019-09-25] MEDS ORDERED: ENOXAPARIN 30MG/0.3ML SYR SUBCUT SCH (09:00)
[2019-09-25] MEDS: GABAPENTIN 100MG CAPSULE PO SCH ×2 (09:53→18:00)
[2019-09-25] MEDS: THIAMINE HCL 100MG TABLET PO SCH (09:53)
[2019-09-25] MEDS: ALLOPURINOL 100 MG TABLET PO SCH (09:53)
[2019-09-25] MEDS ORDERED: INSULIN GLARGINE UD 100 UNITS/ML SYR SUBCUT SCH (10:00)
[2019-09-25 10:29] LABS: BASOPHILS % 1.1 % (0.0-2.0); EOSINOPHILS % 5.2 % (0.0-5.0); HEMATOCRIT. 32.1 % (36.0-48.0); HEMOGLOBIN. 10.5 g/dL (12.0-16.0); LYMPHOCYTES % 20.9 % (20.0-50.0); MEAN CORPUSCULAR HEMOGLOBIN 29.3 pg (28.0-32.0); MEAN CORPUSCULAR VOLUME 89.8 fL (81.0-99.0); MEAN PLATELET VOLUME 9.5 fl (7.4-10.4); MONOCYTES % 14.5 % (2.0-8.0); NEUTROPHILS % 58.3 % (40.0-76.0); PLATELET 116 x1000/uL (130-400); RED BLOOD CELL COUNT 3.57 mill/uL (4.2-5.4); RED CELL DISTRIBUTION WIDTH 14.7 % (11.6-14.6)
[2019-09-25 13:00] VITALS: BP 125/79
[2019-09-25 13:15] VITALS: BP 125/79
[2019-09-25] MEDS ORDERED: DEXTROSE 50% WATER 50ML SYRINGE IV PRN (13:45)
[2019-09-25 16:28] VITALS: BP 122/56
[2019-09-25] MEDS: BLOOD SUGAR DIAGNOSTIC STRIP TEST SCH ×2 (17:07→21:57)
[2019-09-25] MEDS: INSULIN LISPRO 100 UNITS/ML SUBCUT SCH ×2 (17:58→22:04)
[2019-09-25] MEDS: APIXABAN 2.5 MG TABLET PO SCH (18:01)
[2019-09-25 20:26] VITALS: BP 145/57
[2019-09-25] MEDS: ATORVASTATIN CALCIUM 20MG TABLET PO SCH (21:57)
[2019-09-25] MEDS: CARVEDILOL 3.125 MG TABLET PO SCH (21:57)
[2019-09-25] MEDS: INSULIN GLARGINE UD 100 UNITS/ML SYR SUBCUT SCH (22:04)
[2019-09-26 00:48] VITALS: BP 136/82
[2019-09-26 04:00] VITALS: BP 149/63
[2019-09-26] MEDS: FUROSEMIDE 40MG/4ML VIAL IV SCH ×2 (05:49→16:47)
[2019-09-26] MEDS: OMEPRAZOLE 20MG CAPSULE EXTENDED RELEASE PO SCH (05:50)
[2019-09-26 06:21] LABS: BASOPHILS % 1.4 % (0.0-2.0); EOSINOPHILS % 5.2 % (0.0-5.0); HEMATOCRIT. 30.3 % (36.0-48.0); HEMOGLOBIN. 9.9 g/dL (12.0-16.0); LYMPHOCYTES % 19.8 % (20.0-50.0); MEAN CORPUSCULAR HEMOGLOBIN 29.2 pg (28.0-32.0); MEAN CORPUSCULAR VOLUME 89.1 fL (81.0-99.0); MEAN PLATELET VOLUME 9.8 fl (7.4-10.4); MONOCYTES % 13.1 % (2.0-8.0); NEUTROPHILS % 60.5 % (40.0-76.0); PLATELET 125 x1000/uL (130-400); RED CELL DISTRIBUTION WIDTH 14.8 % (11.6-14.6)
[2019-09-26] MEDS: BLOOD SUGAR DIAGNOSTIC STRIP TEST SCH ×4 (06:53→21:32)
[2019-09-26] MEDS: INSULIN LISPRO 100 UNITS/ML SUBCUT SCH ×4 (07:14→21:00)
[2019-09-26 08:00] VITALS: BP 140/82
[2019-09-26] MEDS: THIAMINE HCL 100MG TABLET PO SCH (09:22)
[2019-09-26] MEDS: GABAPENTIN 100MG CAPSULE PO SCH ×2 (09:22→16:47)
[2019-09-26] MEDS: APIXABAN 2.5 MG TABLET PO SCH ×2 (09:22→16:47)
[2019-09-26] MEDS: CARVEDILOL 3.125 MG TABLET PO SCH ×2 (09:22→21:32)
[2019-09-26] MEDS: ALLOPURINOL 100 MG TABLET PO SCH (09:22)
[2019-09-26] MEDS: INSULIN GLARGINE UD 100 UNITS/ML SYR SUBCUT SCH ×2 (10:13→22:00)
[2019-09-26 12:15] VITALS: BP 96/76
[2019-09-26 16:00] VITALS: BP 139/55
[2019-09-26 20:00] VITALS: BP 145/52
[2019-09-26] MEDS: ATORVASTATIN CALCIUM 20MG TABLET PO SCH (21:32)
[2019-09-27] VITALS (7 sets, daily range): BP systolic 125–178; BP diastolic 58–94
[2019-09-27 07:18] LABS: BASOPHILS % 1.1 % (0.0-2.0); EOSINOPHILS % 3.7 % (0.0-5.0); HEMATOCRIT. 29.7 % (36.0-48.0); HEMOGLOBIN. 9.8 g/dL (12.0-16.0); MEAN CORPUSCULAR VOLUME 88.2 fL (81.0-99.0); MEAN PLATELET VOLUME 9.6 fl (7.4-10.4); MONOCYTES % 14.1 % (2.0-8.0); NEUTROPHILS % 61.1 % (40.0-76.0); PLATELET 118 x1000/uL (130-400); RED BLOOD CELL COUNT 3.37 mill/uL (4.2-5.4); RED CELL DISTRIBUTION WIDTH 14.6 % (11.6-14.6)
[2019-09-27] MEDS: BLOOD SUGAR DIAGNOSTIC STRIP TEST SCH ×4 (07:20→21:17)
[2019-09-27] MEDS: INSULIN LISPRO 100 UNITS/ML SUBCUT SCH ×4 (07:50→21:19)
[2019-09-27] MEDS: OMEPRAZOLE 20MG CAPSULE EXTENDED RELEASE PO SCH (08:57)
[2019-09-27] MEDS: THIAMINE HCL 100MG TABLET PO SCH (08:58)
[2019-09-27] MEDS: CARVEDILOL 3.125 MG TABLET PO SCH ×2 (08:58→21:17)
[2019-09-27] MEDS: APIXABAN 2.5 MG TABLET PO SCH ×2 (08:58→17:49)
[2019-09-27] MEDS: ALLOPURINOL 100 MG TABLET PO SCH (08:58)
[2019-09-27] MEDS: GABAPENTIN 100MG CAPSULE PO SCH ×2 (08:58→17:49)
[2019-09-27] MEDS: FUROSEMIDE 40MG/4ML VIAL IV SCH (08:58)
[2019-09-27] MEDS: INSULIN GLARGINE UD 100 UNITS/ML SYR SUBCUT SCH (12:33)
[2019-09-27] MEDS: ATORVASTATIN CALCIUM 20MG TABLET PO SCH (21:17)
[2019-09-28] VITALS: BP 135/58
[2019-09-28 04:00] VITALS: BP 138/49
[2019-09-28 06:14] LABS: HEMATOCRIT. 32.3 % (36.0-48.0); HEMOGLOBIN. 10.4 g/dL (12.0-16.0); MEAN CORPUSCULAR HEMOGLOBIN 28.7 pg (28.0-32.0); MEAN CORPUSCULAR VOLUME 88.9 fL (81.0-99.0); MEAN PLATELET VOLUME 9.4 fl (7.4-10.4); PLATELET 111 x1000/uL (130-400); RED BLOOD CELL COUNT 3.63 mill/uL (4.2-5.4)
[2019-09-28] MEDS: BLOOD SUGAR DIAGNOSTIC STRIP TEST SCH ×3 (06:15→17:54)
[2019-09-28] MEDS: OMEPRAZOLE 20MG CAPSULE EXTENDED RELEASE PO SCH (06:23)
[2019-09-28] MEDS: INSULIN LISPRO 100 UNITS/ML SUBCUT SCH ×3 (07:16→17:58)
[2019-09-28 08:00] VITALS: BP 147/51
[2019-09-28] MEDS: GABAPENTIN 100MG CAPSULE PO SCH ×2 (09:04→17:57)
[2019-09-28] MEDS: APIXABAN 2.5 MG TABLET PO SCH ×2 (09:04→17:57)
[2019-09-28] MEDS: FUROSEMIDE 40MG/4ML VIAL IV SCH (09:04)
[2019-09-28] MEDS: CARVEDILOL 3.125 MG TABLET PO SCH (09:04)
[2019-09-28] MEDS: ALLOPURINOL 100 MG TABLET PO SCH (09:04)
[2019-09-28] MEDS: THIAMINE HCL 100MG TABLET PO SCH (09:04)
[2019-09-28 09:10] LABS: PLATELET ESTIMATE DECREASED
[2019-09-28 12:00] VITALS: BP 155/61
[2019-09-28 16:00] VITALS: BP 155/61
[2019-09-28 16:50] VITALS: BP 155/61
[2019-09-29] MEDS ORDERED: PRED5DRO22 LEFTEYE (03:33)
[2019-09-29] MEDS ORDERED: CIPR2.5D17 LEFTEYE (03:33)
[2019-09-29] MEDS ORDERED: GABA-529 PO (03:35)
[2019-09-29] MEDS ORDERED: POTA20TA82 PO (03:37)
[2019-09-29] MEDS ORDERED: HYDR-4001 PO (03:38)
[2019-09-29] MEDS ORDERED: GABA-531 PO (03:39)
[2019-09-29] MEDS ORDERED: AMLO5TAB88 PO (03:41)
[2019-09-29] MEDS ORDERED: DICL2.5D8 EACHEYE (03:45)
== END 2019-09-28 20:29 | DRG 291 ==
LOC: ER 15:12 → MICUSO 20:00 → EDBEDREQTM 20:04 → EDBEDREQ 20:04 → 6WST 09-25 13:19
PROVIDERS: ADMIT Internal Medicine Nephrology; ATTEND Internal Medicine Nephrology
DX: I13.0 Hypertensive heart and chronic kidney disease with heart failure and stage 1 through stage 4 chronic kidney disease, or unspecified chronic kidney disease (principal); J96.20 Acute and chronic respiratory failure, unspecified whether with hypoxia or hypercapnia; I50.23 Acute on chronic systolic (congestive) heart failure; D61.818 Other pancytopenia; E46 Unspecified protein-calorie malnutrition; I48.20 Chronic atrial fibrillation, unspecified; N17.9 Acute kidney failure, unspecified; D63.8 Anemia in other chronic diseases classified elsewhere; E11.22 Type 2 diabetes mellitus with diabetic chronic kidney disease; N18.9 Chronic kidney disease, unspecified; D63.1 Anemia in chronic kidney disease; E78.00 Pure hypercholesterolemia, unspecified; Z96.652 Presence of left artificial knee joint; E78.5 Hyperlipidemia, unspecified; R26.9 Unspecified abnormalities of gait and mobility; E87.8 Other disorders of electrolyte and fluid balance, not elsewhere classified; I42.9 Cardiomyopathy, unspecified; M10.9 Gout, unspecified; I48.0 Paroxysmal atrial fibrillation; K21.9 Gastro-esophageal reflux disease without esophagitis; J44.9 Chronic obstructive pulmonary disease, unspecified; Z79.01 Long term (current) use of anticoagulants; Z82.49 Family history of ischemic heart disease and other diseases of the circulatory system; Z86.73 Personal history of transient ischemic attack (TIA), and cerebral infarction without residual deficits; Z87.891 Personal history of nicotine dependence; Z95.0 Presence of cardiac pacemaker; Z99.81 Dependence on supplemental oxygen; Z68.27 Body mass index [BMI] 27.0-27.9, adult; Z88.0 Allergy status to penicillin; Z79.899 Other long term (current) drug therapy; Z79.4 Long term (current) use of insulin
CPT/HCPCS: 36415; 71045; 76700; 80048; 80053; 82962; 83036; 83735; 83880; 84484; 85025; 93005; 97162; 99285; J1650; J1815; J1940

== ENCOUNTER 2019-09-28 20:30 | Inpatient (IN) | payer MEDICARE, MEDICAID ==
[~2019-09-28] VITALS: Ht 162.6 cm; Wt 79.4 kg
[2019-09-28 21:00] VITALS: BP 174/82
[2019-09-28] MEDS ORDERED: CLONIDINE 0.1MG TABLET PO PRN (21:45)
[2019-09-28] MEDS ORDERED: ACETAMINOPHEN 325MG TABLET PO PRN (21:45)
[2019-09-28] MEDS ORDERED: DEXTROSE 50% WATER 50ML SYRINGE IV PRN (21:45)
[2019-09-28] MEDS ORDERED: IPRATROPIUM/ALBUTEROL 0.5-3(2.5)MG/3ML NEB HHN PRN (21:45)
[2019-09-28] MEDS ORDERED: MORPHINE SULFATE 2 MG/ML CPJ (NOT FOR IM USE) IV PRN (21:45)
[2019-09-28] MEDS ORDERED: ONDANSETRON HCL 4MG/2ML INJ IV PRN (21:45)
[2019-09-28] MEDS ORDERED: HYDROCODONE/ACETAMINOPHEN 5/325MG TABLET PO PRN (21:45)
[2019-09-28] MEDS: INSULIN LISPRO 100 UNITS/ML SUBCUT SCH (22:00)
[2019-09-28 23:00] VITALS: BP 144/72
[2019-09-28] MEDS: CARVEDILOL 3.125 MG TABLET PO SCH (23:15)
[2019-09-28] MEDS: ATORVASTATIN CALCIUM 20MG TABLET PO SCH (23:15)
[2019-09-28] MEDS: BLOOD SUGAR DIAGNOSTIC STRIP TEST SCH (23:15)
[2019-09-29] MEDS ORDERED: CIPR2.5D17 LEFTEYE (03:33)
[2019-09-29] MEDS ORDERED: PRED5DRO22 LEFTEYE (03:33)
[2019-09-29] MEDS ORDERED: GABA-529 PO (03:35)
[2019-09-29] MEDS ORDERED: POTA20TA82 PO (03:37)
[2019-09-29] MEDS ORDERED: HYDR-4001 PO (03:38)
[2019-09-29] MEDS ORDERED: GABA-531 PO (03:39)
[2019-09-29] MEDS ORDERED: AMLO5TAB88 PO (03:41)
[2019-09-29] MEDS ORDERED: DICL2.5D8 EACHEYE (03:45)
[2019-09-29] MEDS: BLOOD SUGAR DIAGNOSTIC STRIP TEST SCH ×4 (06:03→20:37)
[2019-09-29] MEDS: INSULIN LISPRO 100 UNITS/ML SUBCUT SCH ×4 (06:04→21:25)
[2019-09-29] MEDS: OMEPRAZOLE 20MG CAPSULE EXTENDED RELEASE PO SCH (06:04)
[2019-09-29 06:45] LABS: BASOPHILS % 1.1 % (0.0-2.0); EOSINOPHILS % 2.8 % (0.0-5.0); HEMATOCRIT. 31.2 % (36.0-48.0); HEMOGLOBIN. 10.1 g/dL (12.0-16.0); LYMPHOCYTES % 16.6 % (20.0-50.0); MEAN CORPUSCULAR HEMOGLOBIN 28.5 pg (28.0-32.0); MEAN CORPUSCULAR VOLUME 88.4 fL (81.0-99.0); MEAN PLATELET VOLUME 9.5 fl (7.4-10.4); MONOCYTES % 12.5 % (2.0-8.0); PLATELET 117 x1000/uL (130-400); RED BLOOD CELL COUNT 3.53 mill/uL (4.2-5.4); RED CELL DISTRIBUTION WIDTH 14.4 % (11.6-14.6)
[2019-09-29 06:57] LABS: CHLORIDE 109 mEq/L (98-107)
[2019-09-29 08:00] VITALS: BP 157/54
[2019-09-29] MEDS: ALLOPURINOL 100 MG TABLET PO SCH (08:34)
[2019-09-29] MEDS: FUROSEMIDE 40MG/4ML VIAL IVP SCH (08:34)
[2019-09-29] MEDS: THIAMINE HCL 100MG TABLET PO SCH (08:34)
[2019-09-29] MEDS: GABAPENTIN 100MG CAPSULE PO SCH ×2 (08:35→17:22)
[2019-09-29] MEDS: APIXABAN 2.5 MG TABLET PO SCH ×2 (08:35→17:22)
[2019-09-29] MEDS: CARVEDILOL 3.125 MG TABLET PO SCH (08:35)
[2019-09-29] MEDS ORDERED: LACTULOSE 20G/30ML UDC PO PRN (12:00)
[2019-09-29] MEDS ORDERED: NA PHOS,M-B/NA PHOS,DI-BA ENEMA 118ML PR PRN (12:00)
[2019-09-29] MEDS: BISACODYL 5MG TABLET PO PRN (13:54)
[2019-09-29] MEDS: CIPROFLOXACIN 0.3% OPHTH SOLN 2.5ML LEFTEYE SCH ×2 (16:13→20:35)
[2019-09-29] MEDS: PREDNISOLONE ACETATE 1% OPHTH DROPS 5ML LEFTEYE SCH ×2 (16:13→20:35)
[2019-09-29] MEDS: DICLOFENAC SODIUM 0.1% OPHTH 2.5 ML BOTTLE EACHEYE SCH (16:14)
[2019-09-29 20:00] VITALS: BP 166/65
[2019-09-29] MEDS: ATORVASTATIN CALCIUM 20MG TABLET PO SCH (20:35)
[2019-09-29] MEDS: CARVEDILOL 6.25 MG TABLET PO SCH (20:35)
[2019-09-29 22:50] VITALS: BP 124/56
[2019-09-30 04:58] VITALS: BP 142/64
[2019-09-30] MEDS: BLOOD SUGAR DIAGNOSTIC STRIP TEST SCH ×4 (05:52→20:37)
[2019-09-30] MEDS: BISACODYL 5MG TABLET PO PRN (05:54)
[2019-09-30] MEDS: OMEPRAZOLE 20MG CAPSULE EXTENDED RELEASE PO SCH (06:04)
[2019-09-30 06:31] LABS: BASOPHILS % 1.9 % (0.0-2.0); EOSINOPHILS % 4.7 % (0.0-5.0); HEMATOCRIT. 30.7 % (36.0-48.0); HEMOGLOBIN. 9.9 g/dL (12.0-16.0); LYMPHOCYTES % 24.2 % (20.0-50.0); MEAN CORPUSCULAR HEMOGLOBIN 28.4 pg (28.0-32.0); MEAN CORPUSCULAR VOLUME 88.3 fL (81.0-99.0); MEAN PLATELET VOLUME 9.2 fl (7.4-10.4); MONOCYTES % 13.3 % (2.0-8.0); NEUTROPHILS % 55.9 % (40.0-76.0); PLATELET 115 x1000/uL (130-400); RED BLOOD CELL COUNT 3.47 mill/uL (4.2-5.4); RED CELL DISTRIBUTION WIDTH 14.8 % (11.6-14.6)
[2019-09-30] MEDS: INSULIN LISPRO 100 UNITS/ML SUBCUT SCH ×4 (06:51→22:22)
[2019-09-30 07:06] LABS: FOLIC ACID (FOLATE) SERUM 12.9 ng/mL (>5.38)
[2019-09-30 08:00] VITALS: BP 155/67
[2019-09-30] MEDS: GABAPENTIN 100MG CAPSULE PO SCH ×2 (09:36→16:39)
[2019-09-30] MEDS: FUROSEMIDE 40MG/4ML VIAL IVP SCH (09:36)
[2019-09-30] MEDS: ALLOPURINOL 100 MG TABLET PO SCH (09:37)
[2019-09-30] MEDS: LOSARTAN POTASSIUM 25 MG TABLET PO SCH (09:37)
[2019-09-30] MEDS: APIXABAN 2.5 MG TABLET PO SCH ×2 (09:37→16:39)
[2019-09-30] MEDS: CARVEDILOL 6.25 MG TABLET PO SCH ×2 (09:37→21:35)
[2019-09-30] MEDS: THIAMINE HCL 100MG TABLET PO SCH (09:37)
[2019-09-30] MEDS: CIPROFLOXACIN 0.3% OPHTH SOLN 2.5ML LEFTEYE SCH ×4 (09:38→21:35)
[2019-09-30] MEDS: DICLOFENAC SODIUM 0.1% OPHTH 2.5 ML BOTTLE EACHEYE SCH ×2 (09:38→16:40)
[2019-09-30] MEDS: PREDNISOLONE ACETATE 1% OPHTH DROPS 5ML LEFTEYE SCH ×4 (09:38→21:35)
[2019-09-30] MEDS ORDERED: PREDNISONE 20MG TABLET PO NR (17:00)
[2019-09-30] MEDS: INSULIN GLARGINE UD 100 UNITS/ML SYR SUBCUT SCH ×2 (18:16→22:21)
[2019-09-30 20:00] VITALS: BP 136/70
[2019-09-30] MEDS: ATORVASTATIN CALCIUM 20MG TABLET PO SCH (21:34)
[2019-10-01] MEDS: OMEPRAZOLE 20MG CAPSULE EXTENDED RELEASE PO SCH (06:13)
[2019-10-01] MEDS: BLOOD SUGAR DIAGNOSTIC STRIP TEST SCH ×4 (06:21→20:43)
[2019-10-01] MEDS: INSULIN LISPRO 100 UNITS/ML SUBCUT SCH ×3 (06:48→17:55)
[2019-10-01 07:57] VITALS: BP 97/73
[2019-10-01] MEDS: GABAPENTIN 100MG CAPSULE PO SCH ×2 (08:33→17:50)
[2019-10-01] MEDS: ALLOPURINOL 100 MG TABLET PO SCH (08:33)
[2019-10-01] MEDS: THIAMINE HCL 100MG TABLET PO SCH (08:33)
[2019-10-01] MEDS: FUROSEMIDE 40MG/4ML VIAL IVP SCH (08:33)
[2019-10-01] MEDS: APIXABAN 2.5 MG TABLET PO SCH ×2 (08:33→17:51)
[2019-10-01] MEDS: CIPROFLOXACIN 0.3% OPHTH SOLN 2.5ML LEFTEYE SCH ×4 (08:35→20:42)
[2019-10-01] MEDS: DICLOFENAC SODIUM 0.1% OPHTH 2.5 ML BOTTLE EACHEYE SCH ×2 (08:35→17:53)
[2019-10-01] MEDS: PREDNISOLONE ACETATE 1% OPHTH DROPS 5ML LEFTEYE SCH ×4 (08:35→20:42)
[2019-10-01] MEDS: LOSARTAN POTASSIUM 25 MG TABLET PO SCH (08:36)
[2019-10-01] MEDS: CARVEDILOL 6.25 MG TABLET PO SCH ×2 (08:36→20:43)
[2019-10-01] MEDS: INSULIN GLARGINE UD 100 UNITS/ML SYR SUBCUT SCH ×2 (10:39→21:31)
[2019-10-01] MEDS ORDERED: INSULIN LISPRO 100 UNITS/ML SUBCUT SCH (13:00)
[2019-10-01] MEDS: INSULIN LISPRO (CUSTOM DOSE) 100 UNITS/ML SUBCUT SCH ×2 (13:11→17:54)
[2019-10-01] MEDS: FERROUS SULFATE 325MG TABLET PO SCH (17:50)
[2019-10-01 20:00] VITALS: BP 142/64
[2019-10-01] MEDS: ATORVASTATIN CALCIUM 20MG TABLET PO SCH (20:42)
[2019-10-02] MEDS: INSULIN LISPRO (CUSTOM DOSE) 100 UNITS/ML SUBCUT SCH ×3 (07:00→16:44)
[2019-10-02] MEDS: BLOOD SUGAR DIAGNOSTIC STRIP TEST SCH ×4 (07:08→21:07)
[2019-10-02] MEDS: OMEPRAZOLE 20MG CAPSULE EXTENDED RELEASE PO SCH (07:08)
[2019-10-02 07:56] VITALS: BP 143/68
[2019-10-02] MEDS: ALLOPURINOL 100 MG TABLET PO SCH (08:15)
[2019-10-02] MEDS: FERROUS SULFATE 325MG TABLET PO SCH ×3 (08:15→16:38)
[2019-10-02] MEDS: APIXABAN 2.5 MG TABLET PO SCH ×2 (08:15→16:38)
[2019-10-02] MEDS: GABAPENTIN 100MG CAPSULE PO SCH ×2 (08:15→16:38)
[2019-10-02] MEDS: CARVEDILOL 6.25 MG TABLET PO SCH ×2 (08:15→21:17)
[2019-10-02] MEDS: LOSARTAN POTASSIUM 25 MG TABLET PO SCH (08:15)
[2019-10-02] MEDS: THIAMINE HCL 100MG TABLET PO SCH (08:16)
[2019-10-02] MEDS: ASCORBIC ACID 250 MG TABLET PO SCH (08:16)
[2019-10-02] MEDS: FUROSEMIDE 40MG/4ML VIAL IVP SCH (08:18)
[2019-10-02] MEDS: PREDNISOLONE ACETATE 1% OPHTH DROPS 5ML LEFTEYE SCH ×4 (08:19→21:17)
[2019-10-02] MEDS: CIPROFLOXACIN 0.3% OPHTH SOLN 2.5ML LEFTEYE SCH ×4 (08:19→21:17)
[2019-10-02] MEDS: DICLOFENAC SODIUM 0.1% OPHTH 2.5 ML BOTTLE EACHEYE SCH ×2 (08:19→16:38)
[2019-10-02] MEDS: INSULIN LISPRO 100 UNITS/ML SUBCUT SCH ×3 (08:20→16:44)
[2019-10-02] MEDS: PREDNISONE 20MG TABLET PO SCH (09:39)
[2019-10-02 09:44] LABS: BASOPHILS % 1.7 % (0.0-2.0); EOSINOPHILS % 5.2 % (0.0-5.0); HEMATOCRIT. 29.8 % (36.0-48.0); HEMOGLOBIN. 9.6 g/dL (12.0-16.0); LYMPHOCYTES % 30.2 % (20.0-50.0); MEAN CORPUSCULAR HEMOGLOBIN 28.4 pg (28.0-32.0); MEAN CORPUSCULAR VOLUME 88.4 fL (81.0-99.0); MEAN PLATELET VOLUME 9.2 fl (7.4-10.4); MONOCYTES % 10.8 % (2.0-8.0); NEUTROPHILS % 52.1 % (40.0-76.0); PLATELET 134 x1000/uL (130-400); RED BLOOD CELL COUNT 3.37 mill/uL (4.2-5.4); RED CELL DISTRIBUTION WIDTH 14.4 % (11.6-14.6)
[2019-10-02] MEDS ORDERED: INSULIN GLARGINE UD 100 UNITS/ML SYR SUBCUT SCH (10:00)
[2019-10-02 10:07] LABS: T4 FREE 1.13 ng/dL (0.76-1.46)
[2019-10-02 20:00] VITALS: BP 138/64
[2019-10-02] MEDS ORDERED: LOSARTAN POTASSIUM 25 MG TABLET PO SCH (21:00)
[2019-10-02] MEDS: ATORVASTATIN CALCIUM 20MG TABLET PO SCH (21:17)
[2019-10-02] MEDS: AMLODIPINE 5MG TABLET PO SCH (21:17)
[2019-10-02] MEDS: INSULIN GLARGINE UD 100 UNITS/ML SYR SUBCUT SCH (21:18)
[2019-10-03] MEDS: BLOOD SUGAR DIAGNOSTIC STRIP TEST SCH ×4 (05:42→21:12)
[2019-10-03] MEDS: OMEPRAZOLE 20MG CAPSULE EXTENDED RELEASE PO SCH (06:19)
[2019-10-03] MEDS: INSULIN LISPRO 100 UNITS/ML SUBCUT SCH ×3 (06:21→17:00)
[2019-10-03] MEDS: INSULIN LISPRO (CUSTOM DOSE) 100 UNITS/ML SUBCUT SCH ×3 (06:22→17:00)
[2019-10-03 06:53] LABS: BASOPHILS % 0.6 % (0.0-2.0); EOSINOPHILS % 0.1 % (0.0-5.0); HEMATOCRIT. 30.8 % (36.0-48.0); HEMOGLOBIN. 10.1 g/dL (12.0-16.0); LYMPHOCYTES % 14.6 % (20.0-50.0); MEAN CORPUSCULAR HEMOGLOBIN 28.6 pg (28.0-32.0); MEAN CORPUSCULAR VOLUME 87.5 fL (81.0-99.0); MEAN PLATELET VOLUME 9.7 fl (7.4-10.4); MONOCYTES % 9.2 % (2.0-8.0); NEUTROPHILS % 75.5 % (40.0-76.0); PLATELET 142 x1000/uL (130-400); RED BLOOD CELL COUNT 3.52 mill/uL (4.2-5.4); RED CELL DISTRIBUTION WIDTH 14.2 % (11.6-14.6)
[2019-10-03 08:14] VITALS: BP 140/61
[2019-10-03] MEDS: GABAPENTIN 100MG CAPSULE PO SCH ×2 (08:33→18:09)
[2019-10-03] MEDS: PREDNISONE 20MG TABLET PO SCH (08:33)
[2019-10-03] MEDS: AMLODIPINE 5MG TABLET PO SCH ×2 (08:33→21:12)
[2019-10-03] MEDS: CARVEDILOL 6.25 MG TABLET PO SCH ×2 (08:33→21:12)
[2019-10-03] MEDS: APIXABAN 2.5 MG TABLET PO SCH ×2 (08:33→18:08)
[2019-10-03] MEDS: FERROUS SULFATE 325MG TABLET PO SCH ×3 (08:33→18:08)
[2019-10-03] MEDS: ASCORBIC ACID 250 MG TABLET PO SCH (08:34)
[2019-10-03] MEDS: PREDNISOLONE ACETATE 1% OPHTH DROPS 5ML LEFTEYE SCH ×4 (08:34→21:13)
[2019-10-03] MEDS: THIAMINE HCL 100MG TABLET PO SCH (08:34)
[2019-10-03] MEDS: ALLOPURINOL 100 MG TABLET PO SCH (08:34)
[2019-10-03] MEDS: CIPROFLOXACIN 0.3% OPHTH SOLN 2.5ML LEFTEYE SCH ×4 (08:35→21:14)
[2019-10-03] MEDS: FUROSEMIDE 40MG/4ML VIAL IVP SCH (08:35)
[2019-10-03] MEDS: DICLOFENAC SODIUM 0.1% OPHTH 2.5 ML BOTTLE EACHEYE SCH ×2 (08:35→18:09)
[2019-10-03] MEDS: INSULIN GLARGINE UD 100 UNITS/ML SYR SUBCUT SCH (10:00)
[2019-10-03 13:07] LABS: C-PEPTIDE 1.6 ng/mL (1.1-4.4)
[2019-10-03 20:00] VITALS: BP 163/60
[2019-10-03] MEDS: ATORVASTATIN CALCIUM 20MG TABLET PO SCH (21:12)
[2019-10-03] MEDS ORDERED: INSULIN LISPRO 100 UNITS/ML SUBCUT NR (21:45)
[2019-10-04] MEDS: OMEPRAZOLE 20MG CAPSULE EXTENDED RELEASE PO SCH (06:56)
[2019-10-04] MEDS: INSULIN LISPRO (CUSTOM DOSE) 100 UNITS/ML SUBCUT SCH ×3 (07:01→16:56)
[2019-10-04] MEDS: BLOOD SUGAR DIAGNOSTIC STRIP TEST SCH ×4 (07:01→22:01)
[2019-10-04] MEDS: INSULIN LISPRO 100 UNITS/ML SUBCUT SCH ×3 (07:02→16:57)
[2019-10-04 07:08] LABS: LUTEINIZING HORMONE 54.6 mIU/mL (.); PROLACTIN 11.9 ng/mL (4.8-23.3)
[2019-10-04 08:00] VITALS: BP 144/60
[2019-10-04] MEDS: FERROUS SULFATE 325MG TABLET PO SCH ×3 (08:53→16:50)
[2019-10-04] MEDS: FUROSEMIDE 40MG/4ML VIAL IVP SCH (08:54)
[2019-10-04] MEDS: THIAMINE HCL 100MG TABLET PO SCH (08:54)
[2019-10-04] MEDS: APIXABAN 2.5 MG TABLET PO SCH ×2 (08:54→16:50)
[2019-10-04] MEDS: ALLOPURINOL 100 MG TABLET PO SCH (08:54)
[2019-10-04] MEDS: AMLODIPINE 5MG TABLET PO SCH ×2 (08:54→21:54)
[2019-10-04] MEDS: ASCORBIC ACID 250 MG TABLET PO SCH (08:54)
[2019-10-04] MEDS: DICLOFENAC SODIUM 0.1% OPHTH 2.5 ML BOTTLE EACHEYE SCH ×2 (08:54→16:51)
[2019-10-04] MEDS: GABAPENTIN 100MG CAPSULE PO SCH ×2 (08:54→16:50)
[2019-10-04] MEDS: CARVEDILOL 6.25 MG TABLET PO SCH ×2 (08:54→21:53)
[2019-10-04] MEDS: CIPROFLOXACIN 0.3% OPHTH SOLN 2.5ML LEFTEYE SCH ×4 (08:55→21:51)
[2019-10-04] MEDS: PREDNISOLONE ACETATE 1% OPHTH DROPS 5ML LEFTEYE SCH ×4 (08:55→21:54)
[2019-10-04] MEDS: HYDRALAZINE HCL 10MG TABLET PO SCH ×2 (10:26→21:52)
[2019-10-04] MEDS: INSULIN GLARGINE UD 100 UNITS/ML SYR SUBCUT SCH (10:30)
[2019-10-04 20:00] VITALS: BP 98/56
[2019-10-04] MEDS: ATORVASTATIN CALCIUM 20MG TABLET PO SCH (21:51)
[2019-10-05] MEDS: OMEPRAZOLE 20MG CAPSULE EXTENDED RELEASE PO SCH (06:29)
[2019-10-05 06:30] LABS: BASOPHILS % 0.9 % (0.0-2.0); EOSINOPHILS % 3.7 % (0.0-5.0); HEMATOCRIT. 29.2 % (36.0-48.0); HEMOGLOBIN. 9.6 g/dL (12.0-16.0); LYMPHOCYTES % 34.2 % (20.0-50.0); MEAN CORPUSCULAR HEMOGLOBIN 28.5 pg (28.0-32.0); MEAN CORPUSCULAR VOLUME 87.2 fL (81.0-99.0); MEAN PLATELET VOLUME 9.4 fl (7.4-10.4); MONOCYTES % 13.5 % (2.0-8.0); NEUTROPHILS % 47.7 % (40.0-76.0); PLATELET 161 x1000/uL (130-400); RED BLOOD CELL COUNT 3.35 mill/uL (4.2-5.4); RED CELL DISTRIBUTION WIDTH 14.1 % (11.6-14.6)
[2019-10-05] MEDS: BLOOD SUGAR DIAGNOSTIC STRIP TEST SCH ×4 (06:30→21:11)
[2019-10-05] MEDS: INSULIN LISPRO 100 UNITS/ML SUBCUT SCH ×4 (06:31→18:00)
[2019-10-05] MEDS: INSULIN LISPRO (CUSTOM DOSE) 100 UNITS/ML SUBCUT SCH ×3 (06:31→17:00)
[2019-10-05 08:00] VITALS: BP 140/101
[2019-10-05] MEDS: FUROSEMIDE 40MG/4ML VIAL IVP SCH (08:00)
[2019-10-05] MEDS: DICLOFENAC SODIUM 0.1% OPHTH 2.5 ML BOTTLE EACHEYE SCH ×2 (09:24→17:55)
[2019-10-05] MEDS: CIPROFLOXACIN 0.3% OPHTH SOLN 2.5ML LEFTEYE SCH ×4 (09:25→21:14)
[2019-10-05] MEDS: PREDNISOLONE ACETATE 1% OPHTH DROPS 5ML LEFTEYE SCH ×4 (09:26→21:14)
[2019-10-05] MEDS: HYDRALAZINE HCL 10MG TABLET PO SCH ×2 (09:28→21:10)
[2019-10-05] MEDS: CARVEDILOL 6.25 MG TABLET PO SCH ×2 (09:28→21:09)
[2019-10-05] MEDS: GABAPENTIN 100MG CAPSULE PO SCH ×2 (09:29→17:52)
[2019-10-05] MEDS: APIXABAN 2.5 MG TABLET PO SCH ×2 (09:29→17:53)
[2019-10-05] MEDS: FERROUS SULFATE 325MG TABLET PO SCH ×3 (09:29→17:53)
[2019-10-05] MEDS: AMLODIPINE 5MG TABLET PO SCH ×2 (09:30→21:11)
[2019-10-05] MEDS: THIAMINE HCL 100MG TABLET PO SCH (09:30)
[2019-10-05] MEDS: ASCORBIC ACID 250 MG TABLET PO SCH (09:31)
[2019-10-05] MEDS: ALLOPURINOL 100 MG TABLET PO SCH (09:31)
[2019-10-05] MEDS: INSULIN GLARGINE UD 100 UNITS/ML SYR SUBCUT SCH (09:34)
[2019-10-05 17:11] LABS: 25-HYDROXY VITAMIN D3 14 ng/mL (.)
[2019-10-05 20:00] VITALS: BP 117/43
[2019-10-05] MEDS: ATORVASTATIN CALCIUM 20MG TABLET PO SCH (21:09)
[2019-10-05 21:46] VITALS: BP 89/41
[2019-10-06] MEDS: INSULIN LISPRO (CUSTOM DOSE) 100 UNITS/ML SUBCUT SCH ×3 (06:11→17:00)
[2019-10-06] MEDS: BLOOD SUGAR DIAGNOSTIC STRIP TEST SCH ×4 (06:12→21:29)
[2019-10-06] MEDS: BISACODYL 5MG TABLET PO PRN (06:42)
[2019-10-06] MEDS: OMEPRAZOLE 20MG CAPSULE EXTENDED RELEASE PO SCH (06:44)
[2019-10-06] MEDS: INSULIN LISPRO 100 UNITS/ML SUBCUT SCH ×3 (06:49→17:00)
[2019-10-06 08:09] VITALS: BP 129/49
[2019-10-06] MEDS: THIAMINE HCL 100MG TABLET PO SCH (09:18)
[2019-10-06] MEDS: CARVEDILOL 6.25 MG TABLET PO SCH ×2 (09:18→21:36)
[2019-10-06] MEDS: APIXABAN 2.5 MG TABLET PO SCH ×2 (09:18→17:13)
[2019-10-06] MEDS: ASCORBIC ACID 250 MG TABLET PO SCH (09:18)
[2019-10-06] MEDS: ALLOPURINOL 100 MG TABLET PO SCH (09:18)
[2019-10-06] MEDS: FERROUS SULFATE 325MG TABLET PO SCH ×3 (09:19→17:13)
[2019-10-06] MEDS: HYDRALAZINE HCL 10MG TABLET PO SCH ×2 (09:19→21:35)
[2019-10-06] MEDS: FUROSEMIDE 40MG TABLET PO SCH (09:19)
[2019-10-06] MEDS: AMLODIPINE 5MG TABLET PO SCH ×2 (09:19→21:35)
[2019-10-06] MEDS: GABAPENTIN 100MG CAPSULE PO SCH ×2 (09:19→17:13)
[2019-10-06] MEDS: PREDNISOLONE ACETATE 1% OPHTH DROPS 5ML LEFTEYE SCH ×4 (09:22→21:46)
[2019-10-06] MEDS: CIPROFLOXACIN 0.3% OPHTH SOLN 2.5ML LEFTEYE SCH ×3 (09:23→17:26)
[2019-10-06] MEDS: DICLOFENAC SODIUM 0.1% OPHTH 2.5 ML BOTTLE EACHEYE SCH ×2 (09:23→17:25)
[2019-10-06] MEDS: INSULIN GLARGINE UD 100 UNITS/ML SYR SUBCUT SCH (10:22)
[2019-10-06] MEDS ORDERED: ERGOCALCIFEROL 50000UNITS CAPSULE PO SCH (12:00)
[2019-10-06 20:00] VITALS: BP 146/65
[2019-10-06] MEDS: ATORVASTATIN CALCIUM 20MG TABLET PO SCH (21:36)
[2019-10-07] MEDS: BLOOD SUGAR DIAGNOSTIC STRIP TEST SCH ×4 (06:03→21:18)
[2019-10-07] MEDS: OMEPRAZOLE 20MG CAPSULE EXTENDED RELEASE PO SCH (06:03)
[2019-10-07] MEDS: INSULIN LISPRO (CUSTOM DOSE) 100 UNITS/ML SUBCUT SCH ×3 (06:06→17:00)
[2019-10-07] MEDS: INSULIN LISPRO 100 UNITS/ML SUBCUT SCH ×3 (06:13→17:00)
[2019-10-07 08:17] VITALS: BP 150/53
[2019-10-07] MEDS: THIAMINE HCL 100MG TABLET PO SCH (08:44)
[2019-10-07] MEDS: HYDRALAZINE HCL 10MG TABLET PO SCH ×2 (08:44→20:38)
[2019-10-07] MEDS: GABAPENTIN 100MG CAPSULE PO SCH ×2 (08:44→17:36)
[2019-10-07] MEDS: ALLOPURINOL 100 MG TABLET PO SCH (08:44)
[2019-10-07] MEDS: APIXABAN 2.5 MG TABLET PO SCH ×2 (08:44→17:36)
[2019-10-07] MEDS: ASCORBIC ACID 250 MG TABLET PO SCH (08:44)
[2019-10-07] MEDS: FERROUS SULFATE 325MG TABLET PO SCH ×4 (08:45→17:36)
[2019-10-07] MEDS: PREDNISOLONE ACETATE 1% OPHTH DROPS 5ML LEFTEYE SCH ×4 (08:45→21:17)
[2019-10-07] MEDS: CARVEDILOL 6.25 MG TABLET PO SCH ×2 (08:45→21:18)
[2019-10-07] MEDS: DICLOFENAC SODIUM 0.1% OPHTH 2.5 ML BOTTLE EACHEYE SCH ×2 (08:45→17:36)
[2019-10-07] MEDS: FUROSEMIDE 40MG TABLET PO SCH (08:45)
[2019-10-07] MEDS: AMLODIPINE 5MG TABLET PO SCH ×2 (08:45→21:18)
[2019-10-07] MEDS: INSULIN GLARGINE UD 100 UNITS/ML SYR SUBCUT SCH (09:58)
[2019-10-07 20:00] VITALS: BP 141/60
[2019-10-07] MEDS: ATORVASTATIN CALCIUM 20MG TABLET PO SCH (21:18)
[2019-10-08] MEDS: BLOOD SUGAR DIAGNOSTIC STRIP TEST SCH ×4 (05:54→21:29)
[2019-10-08] MEDS: INSULIN LISPRO (CUSTOM DOSE) 100 UNITS/ML SUBCUT SCH ×3 (05:54→16:50)
[2019-10-08] MEDS: OMEPRAZOLE 20MG CAPSULE EXTENDED RELEASE PO SCH (06:28)
[2019-10-08] MEDS: INSULIN LISPRO 100 UNITS/ML SUBCUT SCH ×3 (06:29→17:02)
[2019-10-08 08:00] VITALS: BP 126/53
[2019-10-08] MEDS: CARVEDILOL 6.25 MG TABLET PO SCH ×2 (08:26→22:02)
[2019-10-08] MEDS: FUROSEMIDE 40MG TABLET PO SCH ×2 (10:14→19:00)
[2019-10-08] MEDS: DICLOFENAC SODIUM 0.1% OPHTH 2.5 ML BOTTLE EACHEYE SCH ×2 (10:14→16:50)
[2019-10-08] MEDS: THIAMINE HCL 100MG TABLET PO SCH (10:14)
[2019-10-08] MEDS: GABAPENTIN 100MG CAPSULE PO SCH ×2 (10:14→16:50)
[2019-10-08] MEDS: PREDNISOLONE ACETATE 1% OPHTH DROPS 5ML LEFTEYE SCH ×4 (10:14→22:01)
[2019-10-08] MEDS: ASCORBIC ACID 250 MG TABLET PO SCH (10:14)
[2019-10-08] MEDS: APIXABAN 2.5 MG TABLET PO SCH ×2 (10:15→16:50)
[2019-10-08] MEDS: HYDRALAZINE HCL 10MG TABLET PO SCH (10:15)
[2019-10-08] MEDS: AMLODIPINE 5MG TABLET PO SCH ×2 (10:15→22:02)
[2019-10-08] MEDS: ALLOPURINOL 100 MG TABLET PO SCH (10:15)
[2019-10-08] MEDS: FERROUS SULFATE 325MG TABLET PO SCH ×3 (10:15→16:50)
[2019-10-08] MEDS: INSULIN GLARGINE UD 100 UNITS/ML SYR SUBCUT SCH (10:22)
[2019-10-08 12:22] LABS: HEMATOCRIT. 29.2 % (36.0-48.0); HEMOGLOBIN. 9.7 g/dL (12.0-16.0); MEAN CORPUSCULAR HEMOGLOBIN 28.9 pg (28.0-32.0); MEAN CORPUSCULAR VOLUME 87.5 fL (81.0-99.0); MEAN PLATELET VOLUME 9.3 fl (7.4-10.4); PLATELET 174 x1000/uL (130-400); RED BLOOD CELL COUNT 3.34 mill/uL (4.2-5.4); RED CELL DISTRIBUTION WIDTH 14.6 % (11.6-14.6)
[2019-10-08 12:29] LABS: CHLORIDE 106 mEq/L (98-107)
[2019-10-08 12:35] LABS: PHOSPHORUS 3.2 mg/dL (2.5-4.9)
[2019-10-08 13:10] LABS: PLATELET ESTIMATE NORMAL
[2019-10-08] MEDS ORDERED: FUROSEMIDE 40MG TABLET PO NR (14:00)
[2019-10-08 20:00] VITALS: BP 151/62
[2019-10-08] MEDS: GUAIFENESIN 600MG ER TABLET PO SCH (22:01)
[2019-10-08] MEDS: ATORVASTATIN CALCIUM 20MG TABLET PO SCH (22:01)
[2019-10-09] MEDS: HYDRALAZINE HCL 10MG TABLET PO SCH ×3 (00:24→21:00)
[2019-10-09 06:22] LABS: EOSINOPHILS % 2.5 % (0.0-5.0); HEMOGLOBIN. 9.8 g/dL (12.0-16.0); LYMPHOCYTES % 20.6 % (20.0-50.0); MEAN CORPUSCULAR HEMOGLOBIN 28.3 pg (28.0-32.0); MEAN CORPUSCULAR VOLUME 86.8 fL (81.0-99.0); MEAN PLATELET VOLUME 9.3 fl (7.4-10.4); MONOCYTES % 14.1 % (2.0-8.0); NEUTROPHILS % 61.8 % (40.0-76.0); PLATELET 180 x1000/uL (130-400); RED BLOOD CELL COUNT 3.45 mill/uL (4.2-5.4); RED CELL DISTRIBUTION WIDTH 14.3 % (11.6-14.6)
[2019-10-09] MEDS: BLOOD SUGAR DIAGNOSTIC STRIP TEST SCH ×4 (06:41→21:00)
[2019-10-09] MEDS: INSULIN LISPRO 100 UNITS/ML SUBCUT SCH ×3 (06:43→17:58)
[2019-10-09] MEDS: INSULIN LISPRO (CUSTOM DOSE) 100 UNITS/ML SUBCUT SCH ×3 (06:43→17:00)
[2019-10-09] MEDS: OMEPRAZOLE 20MG CAPSULE EXTENDED RELEASE PO SCH (06:49)
[2019-10-09] MEDS: FUROSEMIDE 40MG TABLET PO SCH ×2 (07:33→17:24)
[2019-10-09 08:00] VITALS: BP 138/63
[2019-10-09] MEDS: CARVEDILOL 6.25 MG TABLET PO SCH ×2 (09:00→22:25)
[2019-10-09] MEDS: AMLODIPINE 5MG TABLET PO SCH ×2 (09:00→22:26)
[2019-10-09] MEDS: FERROUS SULFATE 325MG TABLET PO SCH ×3 (09:00→17:24)
[2019-10-09] MEDS: ASCORBIC ACID 250 MG TABLET PO SCH (09:01)
[2019-10-09] MEDS: DICLOFENAC SODIUM 0.1% OPHTH 2.5 ML BOTTLE EACHEYE SCH ×2 (09:01→17:25)
[2019-10-09] MEDS: ALLOPURINOL 100 MG TABLET PO SCH (09:01)
[2019-10-09] MEDS: GUAIFENESIN 600MG ER TABLET PO SCH ×2 (09:01→22:25)
[2019-10-09] MEDS: APIXABAN 2.5 MG TABLET PO SCH ×2 (09:01→17:24)
[2019-10-09] MEDS: PREDNISOLONE ACETATE 1% OPHTH DROPS 5ML LEFTEYE SCH ×4 (09:01→22:26)
[2019-10-09] MEDS: GABAPENTIN 100MG CAPSULE PO SCH ×2 (09:01→17:24)
[2019-10-09] MEDS: THIAMINE HCL 100MG TABLET PO SCH (09:01)
[2019-10-09] MEDS: INSULIN GLARGINE UD 100 UNITS/ML SYR SUBCUT SCH (10:19)
[2019-10-09] MEDS ORDERED: LOPERAMIDE HCL 2MG CAPSULE PO NR (16:15)
[2019-10-09] MEDS ORDERED: LOPERAMIDE HCL 2MG CAPSULE PO ONE (16:45)
[2019-10-09 20:00] VITALS: BP 142/65
[2019-10-09] MEDS: ATORVASTATIN CALCIUM 20MG TABLET PO SCH (22:26)
[2019-10-10] MEDS: BLOOD SUGAR DIAGNOSTIC STRIP TEST SCH ×2 (06:05→11:15)
[2019-10-10] MEDS: FUROSEMIDE 40MG TABLET PO SCH (06:06)
[2019-10-10] MEDS: INSULIN LISPRO (CUSTOM DOSE) 100 UNITS/ML SUBCUT SCH ×2 (06:06→12:50)
[2019-10-10] MEDS: OMEPRAZOLE 20MG CAPSULE EXTENDED RELEASE PO SCH (06:06)
[2019-10-10] MEDS: INSULIN LISPRO 100 UNITS/ML SUBCUT SCH ×2 (06:07→12:52)
[2019-10-10 06:08] LABS: HEMATOCRIT. 27.9 % (36.0-48.0); HEMOGLOBIN. 9.1 g/dL (12.0-16.0); MEAN CORPUSCULAR HEMOGLOBIN 28.6 pg (28.0-32.0); MEAN CORPUSCULAR VOLUME 87.6 fL (81.0-99.0); MEAN PLATELET VOLUME 9.1 fl (7.4-10.4); PLATELET 173 x1000/uL (130-400); RED BLOOD CELL COUNT 3.19 mill/uL (4.2-5.4); RED CELL DISTRIBUTION WIDTH 14.3 % (11.6-14.6)
[2019-10-10 08:30] VITALS: BP 128/52
[2019-10-10] MEDS ORDERED: FURO40TA5 PO (08:57)
[2019-10-10] MEDS ORDERED: FLUT1DIS3 INH (08:57)
[2019-10-10] MEDS ORDERED: ATOR20TA PO (08:57)
[2019-10-10] MEDS ORDERED: APIX2.5T PO (08:57)
[2019-10-10] MEDS ORDERED: COR25 PO (08:57)
[2019-10-10] MEDS ORDERED: INSLIS SUBCUT (08:57)
[2019-10-10] MEDS ORDERED: ALBU18HF2 IH (08:57)
[2019-10-10] MEDS ORDERED: AMLO5TAB88 PO (08:57)
[2019-10-10] MEDS ORDERED: LANTUSUD SUBCUT (08:57)
[2019-10-10] MEDS ORDERED: INSULIN GLARGINE UD 100 UNITS/ML SYR SUBCUT SCH (10:00)
[2019-10-10] MEDS: PREDNISOLONE ACETATE 1% OPHTH DROPS 5ML LEFTEYE SCH ×2 (10:07→12:51)
[2019-10-10] MEDS: DICLOFENAC SODIUM 0.1% OPHTH 2.5 ML BOTTLE EACHEYE SCH (10:07)
[2019-10-10] MEDS: GABAPENTIN 100MG CAPSULE PO SCH (10:08)
[2019-10-10] MEDS: FERROUS SULFATE 325MG TABLET PO SCH ×2 (10:08→12:49)
[2019-10-10] MEDS: HYDRALAZINE HCL 10MG TABLET PO SCH (10:08)
[2019-10-10] MEDS: THIAMINE HCL 100MG TABLET PO SCH (10:08)
[2019-10-10] MEDS: AMLODIPINE 5MG TABLET PO SCH (10:08)
[2019-10-10] MEDS: CARVEDILOL 6.25 MG TABLET PO SCH (10:09)
[2019-10-10] MEDS: ALLOPURINOL 100 MG TABLET PO SCH (10:09)
[2019-10-10] MEDS: ASCORBIC ACID 250 MG TABLET PO SCH (10:09)
[2019-10-10] MEDS: GUAIFENESIN 600MG ER TABLET PO SCH (10:09)
[2019-10-10] MEDS: APIXABAN 2.5 MG TABLET PO SCH (10:09)
[2019-10-10] MEDS ORDERED: FUROSEMIDE 40MG/4ML VIAL IVP SCH (10:15)
[2019-10-10 12:06] VITALS: BP 128/52
[2019-10-10 12:31] LABS: PLATELET ESTIMATE NORMAL
[2019-10-13] MEDS ORDERED: ERGOCALCIFEROL 50000UNITS CAPSULE PO SCH (09:00)
== END 2019-10-10 15:38 | disposition short-term general hospital (02) | DRG 291 ==
PROVIDERS: ADMIT Physical Medicine & Rehabilitation Spinal Cord Injury Medicine; ATTEND Internal Medicine Nephrology
DX: I13.0 Hypertensive heart and chronic kidney disease with heart failure and stage 1 through stage 4 chronic kidney disease, or unspecified chronic kidney disease (principal); I50.23 Acute on chronic systolic (congestive) heart failure; J96.21 Acute and chronic respiratory failure with hypoxia; D61.818 Other pancytopenia; E46 Unspecified protein-calorie malnutrition; I48.20 Chronic atrial fibrillation, unspecified; N17.9 Acute kidney failure, unspecified; J44.1 Chronic obstructive pulmonary disease with (acute) exacerbation; N18.4 Chronic kidney disease, stage 4 (severe); I42.9 Cardiomyopathy, unspecified; I48.0 Paroxysmal atrial fibrillation; B35.1 Tinea unguium; D63.1 Anemia in chronic kidney disease; E04.2 Nontoxic multinodular goiter; E11.22 Type 2 diabetes mellitus with diabetic chronic kidney disease; E55.9 Vitamin D deficiency, unspecified; E11.43 Type 2 diabetes mellitus with diabetic autonomic (poly)neuropathy; E61.1 Iron deficiency; E78.5 Hyperlipidemia, unspecified; E87.8 Other disorders of electrolyte and fluid balance, not elsewhere classified; I27.20 Pulmonary hypertension, unspecified; K31.84 Gastroparesis; M10.9 Gout, unspecified; R53.81 Other malaise; M47.812 Spondylosis without myelopathy or radiculopathy, cervical region; E05.90 Thyrotoxicosis, unspecified without thyrotoxic crisis or storm; M17.11 Unilateral primary osteoarthritis, right knee; Z96.652 Presence of left artificial knee joint; N18.9 Chronic kidney disease, unspecified; Z79.01 Long term (current) use of anticoagulants; Z80.0 Family history of malignant neoplasm of digestive organs; Z82.49 Family history of ischemic heart disease and other diseases of the circulatory system; Z86.73 Personal history of transient ischemic attack (TIA), and cerebral infarction without residual deficits; Z87.891 Personal history of nicotine dependence; Z95.0 Presence of cardiac pacemaker; Z99.81 Dependence on supplemental oxygen; Z88.0 Allergy status to penicillin; Z79.899 Other long term (current) drug therapy; Z71.89 Other specified counseling; Z71.6 Tobacco abuse counseling; Z68.30 Body mass index [BMI] 30.0-30.9, adult
CPT/HCPCS: 36415; 71045; 80048; 80053; 82024; 82306; 82533; 82550; 82607; 82728; 82746; 82962; 83001; 83002; 83520; 83540; 83550; 83735; 84100; 84134; 84146; 84439; 84443; 84481; 84550; 84681; 85025; 86376; 93970; 93971; 97110; 97112; 97116; 97162; 97167; 97530; 97535; J1815; J1940; J7512

== ENCOUNTER 2019-10-10 16:10 | Inpatient (IN) | payer MEDICARE, MEDICAID ==
[~2019-10-10] VITALS: Ht 162.6 cm; Wt 78.0 kg
[~2019-10-10 16:10] MED LIST changes: +AMLO5TAB88 PO; +CIPR2.5D17 LEFTEYE; +FLUT1DIS3 INH; +GABA-531 PO; +HYDR-4001 PO; +INSLIS SUBCUT; -POTA10CA42 MT; +POTA20TA82 PO; +PRED5DRO22 LEFTEYE
[2019-10-10 16:20] VITALS: BP 128/61
[2019-10-10 16:26] VITALS: BP 128/61
[2019-10-10] MEDS ORDERED: ACETAMINOPHEN 325MG TABLET PO PRN (17:30)
[2019-10-10] MEDS ORDERED: CLONIDINE 0.1MG TABLET PO PRN (17:30)
[2019-10-10] MEDS ORDERED: IPRATROPIUM/ALBUTEROL 0.5-3(2.5)MG/3ML NEB HHN PRN (18:30)
[2019-10-10] MEDS ORDERED: DEXTROSE 50% WATER 50ML SYRINGE IV PRN ×2 (18:45→19:30)
[2019-10-10] MEDS: APIXABAN 2.5 MG TABLET PO SCH (18:50)
[2019-10-10 20:00] VITALS: BP 120/61
[2019-10-10] MEDS: ATORVASTATIN CALCIUM 20MG TABLET PO SCH (20:19)
[2019-10-10] MEDS: HYDRALAZINE HCL 10MG TABLET PO SCH (20:19)
[2019-10-10] MEDS: GUAIFENESIN 600MG ER TABLET PO SCH (20:19)
[2019-10-10] MEDS: AMLODIPINE 5MG TABLET PO SCH (20:20)
[2019-10-10] MEDS: BLOOD SUGAR DIAGNOSTIC STRIP TEST SCH (20:20)
[2019-10-10] MEDS: CARVEDILOL 6.25 MG TABLET PO SCH (20:21)
[2019-10-10 20:31] VITALS: BP 120/61
[2019-10-10] MEDS ORDERED: INSULIN LISPRO 100 UNITS/ML SUBCUT SCH (21:00)
[2019-10-10] MEDS: PREDNISOLONE ACETATE 1% OPHTH DROPS 5ML LEFTEYE SCH (21:00)
[2019-10-10] MEDS ORDERED: BLOOD SUGAR DIAGNOSTIC STRIP TEST SCH (21:00)
[2019-10-11] VITALS: BP 138/77
[2019-10-11 04:00] VITALS: BP 123/54
[2019-10-11] MEDS: FUROSEMIDE 40MG/4ML VIAL IVP SCH ×2 (05:42→18:01)
[2019-10-11] MEDS: INSULIN LISPRO 100 UNITS/ML SUBCUT SCH ×3 (05:43→17:20)
[2019-10-11] MEDS: OMEPRAZOLE 20MG CAPSULE EXTENDED RELEASE PO SCH (05:43)
[2019-10-11] MEDS: BLOOD SUGAR DIAGNOSTIC STRIP TEST SCH ×4 (05:44→21:00)
[2019-10-11 08:00] VITALS: BP 134/49
[2019-10-11] MEDS: FERROUS SULFATE 325MG TABLET PO SCH ×3 (09:09→17:50)
[2019-10-11] MEDS: ASCORBIC ACID 250 MG TABLET PO SCH (09:09)
[2019-10-11] MEDS: GABAPENTIN 100MG CAPSULE PO SCH ×2 (09:09→17:53)
[2019-10-11] MEDS: ALLOPURINOL 100 MG TABLET PO SCH (09:09)
[2019-10-11] MEDS: THIAMINE HCL 100MG TABLET PO SCH (09:09)
[2019-10-11] MEDS: AMLODIPINE 5MG TABLET PO SCH ×2 (09:10→21:23)
[2019-10-11] MEDS: GUAIFENESIN 600MG ER TABLET PO SCH ×2 (09:10→21:23)
[2019-10-11] MEDS: APIXABAN 2.5 MG TABLET PO SCH ×2 (09:10→17:53)
[2019-10-11] MEDS: HYDRALAZINE HCL 10MG TABLET PO SCH ×2 (09:11→21:24)
[2019-10-11] MEDS: CARVEDILOL 6.25 MG TABLET PO SCH ×2 (09:11→21:23)
[2019-10-11] MEDS: INSULIN GLARGINE UD 100 UNITS/ML SYR SUBCUT SCH (10:58)
[2019-10-11 12:00] VITALS: BP 121/53
[2019-10-11] MEDS: DICLOFENAC SODIUM 0.1% OPHTH 2.5 ML BOTTLE BOTHEYE SCH ×2 (13:03→17:53)
[2019-10-11] MEDS: PREDNISOLONE ACETATE 1% OPHTH DROPS 5ML LEFTEYE SCH ×3 (13:05→21:24)
[2019-10-11 16:00] VITALS: BP 132/63
[2019-10-11 20:27] VITALS: BP 129/63
[2019-10-11] MEDS: ATORVASTATIN CALCIUM 20MG TABLET PO SCH (21:23)
[2019-10-12 00:27] VITALS: BP 132/53
[2019-10-12 04:00] VITALS: BP 96/58
[2019-10-12] MEDS: BLOOD SUGAR DIAGNOSTIC STRIP TEST SCH ×4 (06:29→21:01)
[2019-10-12] MEDS: OMEPRAZOLE 20MG CAPSULE EXTENDED RELEASE PO SCH (06:55)
[2019-10-12] MEDS: FUROSEMIDE 40MG/4ML VIAL IVP SCH ×3 (07:15→16:38)
[2019-10-12] MEDS: INSULIN LISPRO 100 UNITS/ML SUBCUT SCH ×3 (07:20→17:20)
[2019-10-12 07:21] LABS: BASOPHILS % 0.9 % (0.0-2.0); EOSINOPHILS % 2.9 % (0.0-5.0); HEMATOCRIT. 27.5 % (36.0-48.0); LYMPHOCYTES % 20.1 % (20.0-50.0); MEAN CORPUSCULAR HEMOGLOBIN 28.6 pg (28.0-32.0); MEAN CORPUSCULAR VOLUME 87.7 fL (81.0-99.0); MEAN PLATELET VOLUME 9.2 fl (7.4-10.4); MONOCYTES % 13.8 % (2.0-8.0); NEUTROPHILS % 62.3 % (40.0-76.0); PLATELET 165 x1000/uL (130-400); RED BLOOD CELL COUNT 3.14 mill/uL (4.2-5.4); RED CELL DISTRIBUTION WIDTH 14.5 % (11.6-14.6)
[2019-10-12 08:00] VITALS: BP 123/58
[2019-10-12] MEDS: FERROUS SULFATE 325MG TABLET PO SCH ×3 (08:01→16:55)
[2019-10-12] MEDS: PREDNISOLONE ACETATE 1% OPHTH DROPS 5ML LEFTEYE SCH ×4 (09:29→21:12)
[2019-10-12] MEDS: GABAPENTIN 100MG CAPSULE PO SCH ×2 (09:29→16:37)
[2019-10-12] MEDS: ALLOPURINOL 100 MG TABLET PO SCH (09:29)
[2019-10-12] MEDS: DICLOFENAC SODIUM 0.1% OPHTH 2.5 ML BOTTLE BOTHEYE SCH ×2 (09:29→16:37)
[2019-10-12] MEDS: ASCORBIC ACID 250 MG TABLET PO SCH (09:30)
[2019-10-12] MEDS: APIXABAN 2.5 MG TABLET PO SCH ×2 (09:30→16:37)
[2019-10-12] MEDS: CARVEDILOL 6.25 MG TABLET PO SCH ×2 (09:30→21:11)
[2019-10-12] MEDS: THIAMINE HCL 100MG TABLET PO SCH (09:30)
[2019-10-12] MEDS: HYDRALAZINE HCL 10MG TABLET PO SCH (09:31)
[2019-10-12] MEDS: AMLODIPINE 5MG TABLET PO SCH ×2 (09:31→21:11)
[2019-10-12] MEDS: GUAIFENESIN 600MG ER TABLET PO SCH ×2 (09:58→21:11)
[2019-10-12] MEDS: INSULIN GLARGINE UD 100 UNITS/ML SYR SUBCUT SCH (11:01)
[2019-10-12 12:00] VITALS: BP 133/46
[2019-10-12 16:00] VITALS: BP 116/74
[2019-10-12 20:00] VITALS: BP 150/65
[2019-10-12] MEDS: IPRATROPIUM/ALBUTEROL 0.5-3(2.5)MG/3ML NEB HHN SCH (20:33)
[2019-10-12] MEDS: ATORVASTATIN CALCIUM 20MG TABLET PO SCH (21:11)
[2019-10-13] VITALS: BP 136/85
[2019-10-13] MEDS: IPRATROPIUM/ALBUTEROL 0.5-3(2.5)MG/3ML NEB HHN SCH ×4 (02:47→21:18)
[2019-10-13 04:00] VITALS: BP 146/61
[2019-10-13 06:29] LABS: BASOPHILS % 1.3 % (0.0-2.0); EOSINOPHILS % 3.7 % (0.0-5.0); HEMOGLOBIN. 9.8 g/dL (12.0-16.0); LYMPHOCYTES % 22.8 % (20.0-50.0); MEAN CORPUSCULAR HEMOGLOBIN 28.5 pg (28.0-32.0); MEAN PLATELET VOLUME 9.3 fl (7.4-10.4); MONOCYTES % 12.7 % (2.0-8.0); NEUTROPHILS % 59.5 % (40.0-76.0); PLATELET 181 x1000/uL (130-400); RED BLOOD CELL COUNT 3.44 mill/uL (4.2-5.4); RED CELL DISTRIBUTION WIDTH 14.3 % (11.6-14.6)
[2019-10-13] MEDS: FUROSEMIDE 40MG/4ML VIAL IVP SCH (07:11)
[2019-10-13] MEDS: INSULIN LISPRO 100 UNITS/ML SUBCUT SCH ×3 (07:20→17:20)
[2019-10-13] MEDS: BLOOD SUGAR DIAGNOSTIC STRIP TEST SCH ×4 (07:28→21:28)
[2019-10-13 08:00] VITALS: BP 135/59
[2019-10-13] MEDS: ASCORBIC ACID 250 MG TABLET PO SCH (08:50)
[2019-10-13] MEDS: DICLOFENAC SODIUM 0.1% OPHTH 2.5 ML BOTTLE BOTHEYE SCH ×2 (08:50→17:32)
[2019-10-13] MEDS: PREDNISOLONE ACETATE 1% OPHTH DROPS 5ML LEFTEYE SCH ×4 (08:50→21:04)
[2019-10-13] MEDS: AMLODIPINE 5MG TABLET PO SCH ×2 (08:51→20:58)
[2019-10-13] MEDS: APIXABAN 2.5 MG TABLET PO SCH ×2 (08:51→17:32)
[2019-10-13] MEDS: GUAIFENESIN 600MG ER TABLET PO SCH ×2 (08:51→21:03)
[2019-10-13] MEDS: ALLOPURINOL 100 MG TABLET PO SCH (08:51)
[2019-10-13] MEDS: FERROUS SULFATE 325MG TABLET PO SCH ×3 (08:51→17:32)
[2019-10-13] MEDS: FAMOTIDINE 20MG TABLET PO SCH (08:51)
[2019-10-13] MEDS: CARVEDILOL 6.25 MG TABLET PO SCH ×2 (08:52→20:58)
[2019-10-13] MEDS: GABAPENTIN 100MG CAPSULE PO SCH ×2 (08:52→17:31)
[2019-10-13] MEDS ORDERED: ERGOCALCIFEROL 50000UNITS CAPSULE PO SCH (09:00)
[2019-10-13] MEDS: ACETYLCYSTEINE 100MG/ML 10% VIAL 4ML INH SCH ×2 (09:14→21:19)
[2019-10-13] MEDS: THIAMINE HCL 100MG TABLET PO SCH (10:28)
[2019-10-13] MEDS: INSULIN GLARGINE UD 100 UNITS/ML SYR SUBCUT SCH (10:29)
[2019-10-13 12:00] VITALS: BP 126/51
[2019-10-13 16:00] VITALS: BP 121/74
[2019-10-13 20:04] VITALS: BP 109/56
[2019-10-13] MEDS: ATORVASTATIN CALCIUM 20MG TABLET PO SCH (21:03)
[2019-10-14 00:41] VITALS: BP 125/66
[2019-10-14] MEDS: IPRATROPIUM/ALBUTEROL 0.5-3(2.5)MG/3ML NEB HHN SCH ×4 (01:17→20:41)
[2019-10-14 04:25] VITALS: BP 141/72
[2019-10-14] MEDS: BLOOD SUGAR DIAGNOSTIC STRIP TEST SCH ×4 (06:24→21:06)
[2019-10-14] MEDS: INSULIN LISPRO 100 UNITS/ML SUBCUT SCH ×3 (07:20→17:08)
[2019-10-14 08:00] VITALS: BP 129/50
[2019-10-14] MEDS: ACETYLCYSTEINE 100MG/ML 10% VIAL 4ML INH SCH ×2 (08:42→20:41)
[2019-10-14] MEDS: DICLOFENAC SODIUM 0.1% OPHTH 2.5 ML BOTTLE BOTHEYE SCH ×2 (10:00→17:07)
[2019-10-14] MEDS: FAMOTIDINE 20MG TABLET PO SCH (10:00)
[2019-10-14] MEDS: PREDNISOLONE ACETATE 1% OPHTH DROPS 5ML LEFTEYE SCH ×4 (10:00→20:51)
[2019-10-14] MEDS: APIXABAN 2.5 MG TABLET PO SCH ×2 (10:00→17:07)
[2019-10-14] MEDS: GUAIFENESIN 600MG ER TABLET PO SCH ×2 (10:01→20:50)
[2019-10-14] MEDS: ALLOPURINOL 100 MG TABLET PO SCH (10:01)
[2019-10-14] MEDS: CARVEDILOL 6.25 MG TABLET PO SCH ×2 (10:01→20:50)
[2019-10-14] MEDS: ASCORBIC ACID 250 MG TABLET PO SCH (10:01)
[2019-10-14] MEDS: GABAPENTIN 100MG CAPSULE PO SCH ×2 (10:01→17:07)
[2019-10-14] MEDS: THIAMINE HCL 100MG TABLET PO SCH (10:01)
[2019-10-14] MEDS: FERROUS SULFATE 325MG TABLET PO SCH ×3 (10:02→17:07)
[2019-10-14] MEDS: AMLODIPINE 5MG TABLET PO SCH ×2 (10:02→20:50)
[2019-10-14] MEDS: INSULIN GLARGINE UD 100 UNITS/ML SYR SUBCUT SCH (10:03)
[2019-10-14 12:26] VITALS: BP 148/72
[2019-10-14] MEDS ORDERED: SODIUM CHLORIDE 0.45% 500 ML IV ONE (13:15)
[2019-10-14 16:11] VITALS: BP 141/69
[2019-10-14 20:20] VITALS: BP 128/74
[2019-10-14] MEDS: ATORVASTATIN CALCIUM 20MG TABLET PO SCH (20:50)
[2019-10-15 00:40] VITALS: BP 135/77
[2019-10-15] MEDS: IPRATROPIUM/ALBUTEROL 0.5-3(2.5)MG/3ML NEB HHN SCH ×4 (02:49→20:57)
[2019-10-15 04:44] VITALS: BP 143/69
[2019-10-15] MEDS: INSULIN LISPRO 100 UNITS/ML SUBCUT SCH ×3 (07:20→16:43)
[2019-10-15] MEDS: BLOOD SUGAR DIAGNOSTIC STRIP TEST SCH ×4 (07:26→20:40)
[2019-10-15 08:00] VITALS: BP 155/81
[2019-10-15] MEDS: GUAIFENESIN 600MG ER TABLET PO SCH ×2 (09:01→20:39)
[2019-10-15] MEDS: FAMOTIDINE 20MG TABLET PO SCH (09:01)
[2019-10-15] MEDS: THIAMINE HCL 100MG TABLET PO SCH (09:02)
[2019-10-15] MEDS: ASCORBIC ACID 250 MG TABLET PO SCH (09:02)
[2019-10-15] MEDS: FERROUS SULFATE 325MG TABLET PO SCH ×3 (09:02→16:50)
[2019-10-15] MEDS: DICLOFENAC SODIUM 0.1% OPHTH 2.5 ML BOTTLE BOTHEYE SCH ×2 (09:02→16:20)
[2019-10-15] MEDS: CARVEDILOL 6.25 MG TABLET PO SCH ×2 (09:02→20:40)
[2019-10-15] MEDS: APIXABAN 2.5 MG TABLET PO SCH ×2 (09:02→16:20)
[2019-10-15] MEDS: GABAPENTIN 100MG CAPSULE PO SCH ×2 (09:02→16:20)
[2019-10-15] MEDS: AMLODIPINE 5MG TABLET PO SCH ×2 (09:02→20:39)
[2019-10-15] MEDS: ALLOPURINOL 100 MG TABLET PO SCH (09:02)
[2019-10-15] MEDS: PREDNISOLONE ACETATE 1% OPHTH DROPS 5ML LEFTEYE SCH ×4 (09:02→20:45)
[2019-10-15] MEDS: ACETYLCYSTEINE 100MG/ML 10% VIAL 4ML INH SCH ×2 (09:52→20:58)
[2019-10-15] MEDS: INSULIN GLARGINE UD 100 UNITS/ML SYR SUBCUT SCH (10:31)
[2019-10-15 12:00] VITALS: BP 128/45
[2019-10-15] MEDS ORDERED: SODIUM CHLORIDE 0.45% 1,000 ML IV SCH (12:45)
[2019-10-15 16:00] VITALS: BP 128/68
[2019-10-15 20:20] VITALS: BP 136/58
[2019-10-15] MEDS: ATORVASTATIN CALCIUM 20MG TABLET PO SCH (20:39)
[2019-10-16] VITALS: BP 133/62
[2019-10-16] MEDS: IPRATROPIUM/ALBUTEROL 0.5-3(2.5)MG/3ML NEB HHN SCH ×3 (02:10→13:23)
[2019-10-16 04:00] VITALS: BP 138/72
[2019-10-16 06:30] LABS: BASOPHILS % 1.4 % (0.0-2.0); EOSINOPHILS % 5.2 % (0.0-5.0); HEMATOCRIT. 27.2 % (36.0-48.0); HEMOGLOBIN. 8.8 g/dL (12.0-16.0); LYMPHOCYTES % 18.7 % (20.0-50.0); MEAN CORPUSCULAR HEMOGLOBIN 28.2 pg (28.0-32.0); MEAN CORPUSCULAR VOLUME 87.4 fL (81.0-99.0); MONOCYTES % 12.4 % (2.0-8.0); NEUTROPHILS % 62.3 % (40.0-76.0); PLATELET 177 x1000/uL (130-400); RED BLOOD CELL COUNT 3.11 mill/uL (4.2-5.4); RED CELL DISTRIBUTION WIDTH 14.4 % (11.6-14.6)
[2019-10-16] MEDS: BLOOD SUGAR DIAGNOSTIC STRIP TEST SCH ×2 (06:38→12:20)
[2019-10-16] MEDS: INSULIN LISPRO 100 UNITS/ML SUBCUT SCH ×2 (07:20→12:20)
[2019-10-16 08:00] VITALS: BP 141/54
[2019-10-16] MEDS: ACETYLCYSTEINE 100MG/ML 10% VIAL 4ML INH SCH ×2 (08:25→13:24)
[2019-10-16] MEDS: APIXABAN 2.5 MG TABLET PO SCH (09:28)
[2019-10-16] MEDS: GABAPENTIN 100MG CAPSULE PO SCH (09:28)
[2019-10-16] MEDS: ASCORBIC ACID 250 MG TABLET PO SCH (09:29)
[2019-10-16] MEDS: AMLODIPINE 5MG TABLET PO SCH (09:29)
[2019-10-16] MEDS: GUAIFENESIN 600MG ER TABLET PO SCH (09:29)
[2019-10-16] MEDS: ALLOPURINOL 100 MG TABLET PO SCH (09:29)
[2019-10-16] MEDS: FAMOTIDINE 20MG TABLET PO SCH (09:29)
[2019-10-16] MEDS: FERROUS SULFATE 325MG TABLET PO SCH (09:29)
[2019-10-16] MEDS: CARVEDILOL 6.25 MG TABLET PO SCH (09:30)
[2019-10-16] MEDS: PREDNISOLONE ACETATE 1% OPHTH DROPS 5ML LEFTEYE SCH (09:30)
[2019-10-16] MEDS: DICLOFENAC SODIUM 0.1% OPHTH 2.5 ML BOTTLE BOTHEYE SCH (09:30)
[2019-10-16] MEDS: INSULIN GLARGINE UD 100 UNITS/ML SYR SUBCUT SCH (10:01)
[2019-10-16] MEDS: THIAMINE HCL 100MG TABLET PO SCH (10:18)
[2019-10-16 11:43] VITALS: BP 141/54
[2019-10-16 12:00] VITALS: BP 124/54
== END 2019-10-16 15:50 | disposition short-term general hospital (02) | DRG 291 ==
LOC: 6WST 16:10
PROVIDERS: ADMIT Internal Medicine Nephrology; ATTEND Internal Medicine Nephrology
DX: I13.0 Hypertensive heart and chronic kidney disease with heart failure and stage 1 through stage 4 chronic kidney disease, or unspecified chronic kidney disease (principal); I50.23 Acute on chronic systolic (congestive) heart failure; J96.20 Acute and chronic respiratory failure, unspecified whether with hypoxia or hypercapnia; E46 Unspecified protein-calorie malnutrition; N17.9 Acute kidney failure, unspecified; J44.9 Chronic obstructive pulmonary disease, unspecified; D63.1 Anemia in chronic kidney disease; E87.8 Other disorders of electrolyte and fluid balance, not elsewhere classified; N18.9 Chronic kidney disease, unspecified; I48.0 Paroxysmal atrial fibrillation; E61.1 Iron deficiency; E11.22 Type 2 diabetes mellitus with diabetic chronic kidney disease; D69.6 Thrombocytopenia, unspecified; I42.9 Cardiomyopathy, unspecified; E55.9 Vitamin D deficiency, unspecified; E78.5 Hyperlipidemia, unspecified; M10.9 Gout, unspecified; Z86.73 Personal history of transient ischemic attack (TIA), and cerebral infarction without residual deficits; Z79.01 Long term (current) use of anticoagulants; Z87.891 Personal history of nicotine dependence; Z99.81 Dependence on supplemental oxygen; Z68.29 Body mass index [BMI] 29.0-29.9, adult; Z88.0 Allergy status to penicillin; Z96.652 Presence of left artificial knee joint
CPT/HCPCS: 36415; 71045; 80048; 82962; 83036; 83735; 85025; 93005; 93971; 94640; 97110; 97116; 97162; 97166; 97530; J1815; J1940; J7608

== ENCOUNTER 2019-10-17 15:12 | Inpatient (IN) | payer MEDICARE, MEDICAID ==
[~2019-10-17] VITALS: Ht 162.6 cm; Wt 78.5 kg
[2019-10-17] VITALS: BP 154/68
[~2019-10-17 15:12] MED LIST changes: -ATOR40TA70 MT; -FURO40TA5 PO; -GABA-531 PO; -POTA20TA82 PO; -SIMV-43 MT
[2019-10-17] MEDS ORDERED: IPRATROPIUM BROMIDE (0.02%) 0.5MG/2.5ML NEB HHN STA (16:04)
[2019-10-17] MEDS ORDERED: ALBUTEROL (0.083%) 2.5MG/3ML NEB HHN STA (16:04)
[2019-10-17 16:44] LABS: BASOPHILS % 1.3 % (0.0-2.0); EOSINOPHILS % 4.9 % (0.0-5.0); HEMATOCRIT. 30.4 % (36.0-48.0); LYMPHOCYTES % 16.5 % (20.0-50.0); MEAN CORPUSCULAR HEMOGLOBIN 28.6 pg (28.0-32.0); MEAN CORPUSCULAR VOLUME 87.4 fL (81.0-99.0); MONOCYTES % 9.1 % (2.0-8.0); NEUTROPHILS % 68.2 % (40.0-76.0); PLATELET 179 x1000/uL (130-400); RED BLOOD CELL COUNT 3.48 mill/uL (4.2-5.4); RED CELL DISTRIBUTION WIDTH 14.2 % (11.6-14.6)
[2019-10-17 16:45] LABS: CHLORIDE 105 mEq/L (98-107)
[2019-10-17 16:47] LABS: INR 1.2; PROTHROMBIN TIME 12.5 sec (9.6-11.0)
[2019-10-17 22:28] VITALS: BP 154/68
[2019-10-17] MEDS ORDERED: HYDROCODONE/ACETAMINOPHEN 5/325MG TABLET PO SCH (23:15)
[2019-10-17] MEDS ORDERED: ONDANSETRON HCL 4MG/2ML INJ IV PRN (23:37)
[2019-10-17] MEDS ORDERED: IPRATROPIUM/ALBUTEROL 0.5-3(2.5)MG/3ML NEB NEB PRN (23:38)
[2019-10-17] MEDS ORDERED: HYDROCODONE/ACETAMINOPHEN 5/325MG TABLET PO PRN (23:38)
[2019-10-17] MEDS ORDERED: MORPHINE SULFATE 2 MG/ML CPJ (NOT FOR IM USE) IV PRN (23:38)
[2019-10-18] MEDS ORDERED: DEXTROSE 50% WATER 50ML SYRINGE IV PRN
[2019-10-18] MEDS: ALLOPURINOL 100 MG TABLET PO SCH ×2 (00:27→08:25)
[2019-10-18 04:00] VITALS: BP 151/55
[2019-10-18] MEDS: OMEPRAZOLE 20MG CAPSULE EXTENDED RELEASE PO SCH (06:26)
[2019-10-18] MEDS: BLOOD SUGAR DIAGNOSTIC STRIP TEST SCH ×4 (06:26→20:36)
[2019-10-18 07:03] LABS: BASOPHILS % 1.2 % (0.0-2.0); EOSINOPHILS % 4.9 % (0.0-5.0); HEMATOCRIT. 27.5 % (36.0-48.0); HEMOGLOBIN. 9.1 g/dL (12.0-16.0); LYMPHOCYTES % 22.4 % (20.0-50.0); MEAN CORPUSCULAR HEMOGLOBIN 28.6 pg (28.0-32.0); MEAN CORPUSCULAR VOLUME 86.8 fL (81.0-99.0); MONOCYTES % 11.5 % (2.0-8.0); PLATELET 159 x1000/uL (130-400); RED BLOOD CELL COUNT 3.17 mill/uL (4.2-5.4); RED CELL DISTRIBUTION WIDTH 14.3 % (11.6-14.6)
[2019-10-18 07:16] LABS: CLARITY URINE CLEAR (CLEAR); COLOR URINE YELLOW (YELLOW); KETONES URINE NEGATIVE (NEGATIVE); LEUKOCYTE ESTERASE URINE NEGATIVE (NEGATIVE); NITRITE URINE NEGATIVE (NEGATIVE); OCCULT BLOOD URINE NEGATIVE (NEGATIVE); PROTEIN URINE NEGATIVE (NEGATIVE); SPECIFIC GRAVITY URINE 1.017 (1.005-1.030); UROBILINOGEN URINE 0.2 E.U./dL (0.2-1.0)
[2019-10-18 08:01] VITALS: BP 134/46
[2019-10-18] MEDS: ASPIRIN 81MG EC TABLET PO SCH ×2 (08:25→08:46)
[2019-10-18] MEDS: GABAPENTIN 100MG CAPSULE PO SCH ×3 (08:26→17:32)
[2019-10-18] MEDS: FOLIC ACID 1MG TABLET PO SCH (08:26)
[2019-10-18] MEDS: AMLODIPINE 5MG TABLET PO SCH ×2 (08:26→20:53)
[2019-10-18] MEDS: INSULIN LISPRO 100 UNITS/ML SUBCUT SCH ×7 (08:28→20:36)
[2019-10-18] MEDS: DICLOFENAC SODIUM 0.1% OPHTH 2.5 ML BOTTLE EACHEYE SCH ×4 (08:31→20:53)
[2019-10-18] MEDS: CIPROFLOXACIN 0.3% OPHTH SOLN 2.5ML LEFTEYE SCH ×4 (08:31→20:53)
[2019-10-18] MEDS ORDERED: APIXABAN 2.5 MG TABLET PO SCH (09:00)
[2019-10-18] MEDS ORDERED: LISINOPRIL 20MG TABLET PO SCH (09:00)
[2019-10-18] MEDS ORDERED: ENOXAPARIN 30MG/0.3ML SYR SUBCUT SCH (09:00)
[2019-10-18] MEDS: INSULIN GLARGINE UD 100 UNITS/ML SYR SUBCUT SCH (10:43)
[2019-10-18] MEDS ORDERED: FUROSEMIDE 40MG/4ML VIAL IVP SCH (11:30)
[2019-10-18 12:03] VITALS: BP 124/103
[2019-10-18 15:39] VITALS: BP 118/46
[2019-10-18] MEDS ORDERED: APIXABAN 5 MG TABLET PO SCH (17:00)
[2019-10-18] MEDS: APIXABAN 2.5 MG TABLET PO SCH (17:31)
[2019-10-18] MEDS: FUROSEMIDE 40MG/4ML VIAL IVP SCH (17:32)
[2019-10-18 20:00] VITALS: BP 139/55
[2019-10-18] MEDS: ATORVASTATIN CALCIUM 20MG TABLET PO SCH (20:53)
[2019-10-19] VITALS: BP 121/44
[2019-10-19 04:00] VITALS: BP 127/47
[2019-10-19 06:17] LABS: BASOPHILS % 1.3 % (0.0-2.0); EOSINOPHILS % 5.6 % (0.0-5.0); HEMATOCRIT. 27.4 % (36.0-48.0); HEMOGLOBIN. 8.9 g/dL (12.0-16.0); LYMPHOCYTES % 23.4 % (20.0-50.0); MEAN CORPUSCULAR HEMOGLOBIN 28.7 pg (28.0-32.0); MEAN CORPUSCULAR VOLUME 88.2 fL (81.0-99.0); MEAN PLATELET VOLUME 9.4 fl (7.4-10.4); MONOCYTES % 12.6 % (2.0-8.0); NEUTROPHILS % 57.1 % (40.0-76.0); PLATELET 165 x1000/uL (130-400); RED CELL DISTRIBUTION WIDTH 14.5 % (11.6-14.6)
[2019-10-19] MEDS: FUROSEMIDE 40MG/4ML VIAL IVP SCH ×2 (06:19→17:29)
[2019-10-19] MEDS: BLOOD SUGAR DIAGNOSTIC STRIP TEST SCH ×4 (06:23→21:24)
[2019-10-19] MEDS: INSULIN LISPRO 100 UNITS/ML SUBCUT SCH ×6 (06:23→21:23)
[2019-10-19] MEDS: OMEPRAZOLE 20MG CAPSULE EXTENDED RELEASE PO SCH (06:23)
[2019-10-19 09:07] VITALS: BP 141/61
[2019-10-19] MEDS: INSULIN GLARGINE UD 100 UNITS/ML SYR SUBCUT SCH (10:00)
[2019-10-19] MEDS: AMLODIPINE 5MG TABLET PO SCH ×2 (11:20→21:27)
[2019-10-19] MEDS: CIPROFLOXACIN 0.3% OPHTH SOLN 2.5ML LEFTEYE SCH ×4 (11:21→21:23)
[2019-10-19] MEDS: GABAPENTIN 100MG CAPSULE PO SCH ×3 (11:21→17:00)
[2019-10-19] MEDS: FOLIC ACID 1MG TABLET PO SCH (11:21)
[2019-10-19] MEDS: ALLOPURINOL 100 MG TABLET PO SCH (11:21)
[2019-10-19] MEDS: APIXABAN 2.5 MG TABLET PO SCH ×2 (11:21→17:29)
[2019-10-19] MEDS: DICLOFENAC SODIUM 0.1% OPHTH 2.5 ML BOTTLE EACHEYE SCH ×4 (11:22→21:24)
[2019-10-19 12:27] VITALS: BP 128/47
[2019-10-19 16:33] VITALS: BP 118/61
[2019-10-19 20:00] VITALS: BP 139/67
[2019-10-19] MEDS: ATORVASTATIN CALCIUM 20MG TABLET PO SCH (21:27)
[2019-10-20] VITALS: BP 133/61
[2019-10-20 04:00] VITALS: BP 130/65
[2019-10-20] MEDS: LORAZEPAM 2MG/ML CPJ IV PRN ×2 (04:01→04:11)
[2019-10-20] MEDS: BLOOD SUGAR DIAGNOSTIC STRIP TEST SCH ×4 (05:56→20:58)
[2019-10-20] MEDS: INSULIN LISPRO 100 UNITS/ML SUBCUT SCH ×7 (05:56→20:58)
[2019-10-20 06:52] LABS: BASOPHILS % 1.6 % (0.0-2.0); EOSINOPHILS % 5.8 % (0.0-5.0); LYMPHOCYTES % 20.2 % (20.0-50.0); MEAN CORPUSCULAR HEMOGLOBIN 28.1 pg (28.0-32.0); MEAN CORPUSCULAR VOLUME 87.9 fL (81.0-99.0); MEAN PLATELET VOLUME 9.1 fl (7.4-10.4); MONOCYTES % 12.8 % (2.0-8.0); NEUTROPHILS % 59.6 % (40.0-76.0); PLATELET 160 x1000/uL (130-400); RED BLOOD CELL COUNT 3.18 mill/uL (4.2-5.4); RED CELL DISTRIBUTION WIDTH 14.6 % (11.6-14.6)
[2019-10-20 08:00] VITALS: BP 122/52
[2019-10-20] MEDS: FOLIC ACID 1MG TABLET PO SCH (10:05)
[2019-10-20] MEDS: ALLOPURINOL 100 MG TABLET PO SCH (10:05)
[2019-10-20] MEDS: FUROSEMIDE 40MG/4ML VIAL IVP SCH ×2 (10:05→16:43)
[2019-10-20] MEDS: OMEPRAZOLE 20MG CAPSULE EXTENDED RELEASE PO SCH (10:05)
[2019-10-20] MEDS: GABAPENTIN 100MG CAPSULE PO SCH ×3 (10:05→16:09)
[2019-10-20] MEDS: APIXABAN 2.5 MG TABLET PO SCH ×2 (10:05→16:09)
[2019-10-20] MEDS: AMLODIPINE 5MG TABLET PO SCH ×2 (10:05→20:53)
[2019-10-20] MEDS: DICLOFENAC SODIUM 0.1% OPHTH 2.5 ML BOTTLE EACHEYE SCH ×4 (10:06→20:54)
[2019-10-20] MEDS: CIPROFLOXACIN 0.3% OPHTH SOLN 2.5ML LEFTEYE SCH ×4 (10:06→20:53)
[2019-10-20] MEDS: INSULIN GLARGINE UD 100 UNITS/ML SYR SUBCUT SCH (10:07)
[2019-10-20 12:00] VITALS: BP 111/72
[2019-10-20 16:00] VITALS: BP 117/60
[2019-10-20 20:50] VITALS: BP 173/80
[2019-10-20] MEDS: ATORVASTATIN CALCIUM 20MG TABLET PO SCH (20:53)
[2019-10-21] VITALS: BP 156/77
[2019-10-21 04:10] VITALS: BP 125/58
[2019-10-21] MEDS: FUROSEMIDE 40MG/4ML VIAL IVP SCH (06:16)
[2019-10-21] MEDS: BLOOD SUGAR DIAGNOSTIC STRIP TEST SCH ×4 (06:22→20:50)
[2019-10-21 08:00] VITALS: BP 150/48
[2019-10-21] MEDS: APIXABAN 2.5 MG TABLET PO SCH ×2 (09:00→17:29)
[2019-10-21] MEDS: INSULIN LISPRO 100 UNITS/ML SUBCUT SCH ×8 (09:15→21:00)
[2019-10-21] MEDS: INSULIN GLARGINE UD 100 UNITS/ML SYR SUBCUT SCH (09:17)
[2019-10-21] MEDS: CIPROFLOXACIN 0.3% OPHTH SOLN 2.5ML LEFTEYE SCH ×4 (09:18→20:49)
[2019-10-21] MEDS: DICLOFENAC SODIUM 0.1% OPHTH 2.5 ML BOTTLE EACHEYE SCH ×4 (09:18→20:49)
[2019-10-21] MEDS: AMLODIPINE 5MG TABLET PO SCH (09:19)
[2019-10-21] MEDS: ALLOPURINOL 100 MG TABLET PO SCH (09:19)
[2019-10-21] MEDS: FAMOTIDINE 20MG TABLET PO SCH (09:19)
[2019-10-21] MEDS: FOLIC ACID 1MG TABLET PO SCH (09:19)
[2019-10-21] MEDS: GABAPENTIN 100MG CAPSULE PO SCH ×3 (09:19→17:27)
[2019-10-21] MEDS ORDERED: LIDOCAINE HCL 1% 20ML VIAL (Pyxis) INJ ONE (10:02)
[2019-10-21] MEDS ORDERED: HEPARIN 1000 UNITS/ML 10ML ONE (10:03)
[2019-10-21 12:00] VITALS: BP 152/65
[2019-10-21 16:00] VITALS: BP 136/51
[2019-10-21 20:00] VITALS: BP 135/57
[2019-10-21] MEDS: COLCHICINE 0.6MG TABLET PO SCH (20:50)
[2019-10-21] MEDS: ATORVASTATIN CALCIUM 20MG TABLET PO SCH (20:50)
[2019-10-21] MEDS: LORAZEPAM 2MG/ML CPJ IV PRN (22:15)
[2019-10-22] VITALS (7 sets, daily range): BP systolic 115–141; BP diastolic 49–60
[2019-10-22] MEDS: BLOOD SUGAR DIAGNOSTIC STRIP TEST SCH ×4 (06:24→20:47)
[2019-10-22] MEDS: APIXABAN 2.5 MG TABLET PO SCH ×2 (09:45→17:41)
[2019-10-22] MEDS: GABAPENTIN 100MG CAPSULE PO SCH ×3 (09:45→17:41)
[2019-10-22] MEDS: CIPROFLOXACIN 0.3% OPHTH SOLN 2.5ML LEFTEYE SCH ×4 (09:45→20:41)
[2019-10-22] MEDS: COLCHICINE 0.6MG TABLET PO SCH ×2 (09:45→20:40)
[2019-10-22] MEDS: DICLOFENAC SODIUM 0.1% OPHTH 2.5 ML BOTTLE EACHEYE SCH ×4 (09:45→20:41)
[2019-10-22] MEDS: FOLIC ACID 1MG TABLET PO SCH (09:45)
[2019-10-22] MEDS: FAMOTIDINE 20MG TABLET PO SCH (09:45)
[2019-10-22] MEDS: ALLOPURINOL 100 MG TABLET PO SCH (09:45)
[2019-10-22] MEDS: INSULIN LISPRO 100 UNITS/ML SUBCUT SCH ×6 (09:47→20:47)
[2019-10-22] MEDS: INSULIN GLARGINE UD 100 UNITS/ML SYR SUBCUT SCH (10:20)
[2019-10-22] MEDS: ATORVASTATIN CALCIUM 20MG TABLET PO SCH (20:40)
[2019-10-23] VITALS: BP 133/54
[2019-10-23 04:00] VITALS: BP 157/55
[2019-10-23 06:13] LABS: BASOPHILS % 1.3 % (0.0-2.0); EOSINOPHILS % 5.3 % (0.0-5.0); HEMATOCRIT. 28.2 % (36.0-48.0); HEMOGLOBIN. 9.3 g/dL (12.0-16.0); LYMPHOCYTES % 22.6 % (20.0-50.0); MEAN CORPUSCULAR HEMOGLOBIN 28.5 pg (28.0-32.0); MEAN CORPUSCULAR VOLUME 86.7 fL (81.0-99.0); MEAN PLATELET VOLUME 8.8 fl (7.4-10.4); MONOCYTES % 12.4 % (2.0-8.0); NEUTROPHILS % 58.4 % (40.0-76.0); PLATELET 128 x1000/uL (130-400); RED BLOOD CELL COUNT 3.26 mill/uL (4.2-5.4); RED CELL DISTRIBUTION WIDTH 14.8 % (11.6-14.6)
[2019-10-23] MEDS: BLOOD SUGAR DIAGNOSTIC STRIP TEST SCH ×4 (07:20→20:53)
[2019-10-23 08:11] VITALS: BP 132/59
[2019-10-23] MEDS: FAMOTIDINE 20MG TABLET PO SCH (08:18)
[2019-10-23] MEDS: GABAPENTIN 100MG CAPSULE PO SCH ×3 (08:18→17:34)
[2019-10-23] MEDS: FOLIC ACID 1MG TABLET PO SCH (08:18)
[2019-10-23] MEDS: APIXABAN 2.5 MG TABLET PO SCH ×2 (08:18→17:34)
[2019-10-23] MEDS: ALLOPURINOL 100 MG TABLET PO SCH (08:18)
[2019-10-23] MEDS: COLCHICINE 0.6MG TABLET PO SCH ×2 (08:18→20:53)
[2019-10-23] MEDS: INSULIN LISPRO 100 UNITS/ML SUBCUT SCH ×6 (08:21→21:00)
[2019-10-23] MEDS: CIPROFLOXACIN 0.3% OPHTH SOLN 2.5ML LEFTEYE SCH ×4 (08:22→20:46)
[2019-10-23] MEDS: DICLOFENAC SODIUM 0.1% OPHTH 2.5 ML BOTTLE EACHEYE SCH ×4 (08:22→20:46)
[2019-10-23] MEDS: INSULIN GLARGINE UD 100 UNITS/ML SYR SUBCUT SCH (10:55)
[2019-10-23 12:07] VITALS: BP 128/51
[2019-10-23 16:25] VITALS: BP 161/68
[2019-10-23 20:00] VITALS: BP 175/91
[2019-10-23 20:36] LABS: HEPATITIS B SURFACE ANTIGEN NEGATIVE
[2019-10-23] MEDS: ATORVASTATIN CALCIUM 20MG TABLET PO SCH (20:46)
[2019-10-24] VITALS: BP 149/60
[2019-10-24 04:00] VITALS: BP 160/68
[2019-10-24] MEDS: BLOOD SUGAR DIAGNOSTIC STRIP TEST SCH ×4 (06:36→21:48)
[2019-10-24] MEDS: INSULIN LISPRO 100 UNITS/ML SUBCUT SCH ×4 (07:27→21:48)
[2019-10-24 08:00] VITALS: BP 156/67
[2019-10-24] MEDS: COLCHICINE 0.6MG TABLET PO SCH ×2 (09:25→21:46)
[2019-10-24] MEDS: ALLOPURINOL 100 MG TABLET PO SCH (09:25)
[2019-10-24] MEDS: FOLIC ACID 1MG TABLET PO SCH (09:26)
[2019-10-24] MEDS: CIPROFLOXACIN 0.3% OPHTH SOLN 2.5ML LEFTEYE SCH ×4 (09:26→21:45)
[2019-10-24] MEDS: AMLODIPINE 2.5MG TABLET PO SCH ×2 (09:26→21:46)
[2019-10-24] MEDS: FAMOTIDINE 20MG TABLET PO SCH (09:26)
[2019-10-24] MEDS: APIXABAN 2.5 MG TABLET PO SCH ×2 (09:26→17:11)
[2019-10-24] MEDS: GABAPENTIN 100MG CAPSULE PO SCH ×3 (09:26→17:11)
[2019-10-24] MEDS: DICLOFENAC SODIUM 0.1% OPHTH 2.5 ML BOTTLE EACHEYE SCH ×4 (09:27→21:45)
[2019-10-24 12:00] VITALS: BP 146/89
[2019-10-24 16:00] VITALS: BP 127/64
[2019-10-24 20:22] VITALS: BP 145/62
[2019-10-24] MEDS: ATORVASTATIN CALCIUM 20MG TABLET PO SCH (21:46)
[2019-10-24] MEDS: METOPROLOL TARTRATE 25MG TABLET PO SCH (21:46)
[2019-10-25 00:11] VITALS: BP 117/69
[2019-10-25 04:00] VITALS: BP 150/63
[2019-10-25 07:07] LABS: HIV SCREEN 4G Non Reactive (Non Reactive)
[2019-10-25 07:20] LABS: BASOPHILS % 0.3 % (0.0-2.0); EOSINOPHILS % 7.1 % (0.0-5.0); HEMATOCRIT. 30.9 % (36.0-48.0); LYMPHOCYTES % 17.8 % (20.0-50.0); MEAN CORPUSCULAR HEMOGLOBIN 28.3 pg (28.0-32.0); MEAN CORPUSCULAR VOLUME 87.5 fL (81.0-99.0); MEAN PLATELET VOLUME 9.1 fl (7.4-10.4); MONOCYTES % 11.3 % (2.0-8.0); NEUTROPHILS % 63.5 % (40.0-76.0); PLATELET 135 x1000/uL (130-400); RED BLOOD CELL COUNT 3.54 mill/uL (4.2-5.4); RED CELL DISTRIBUTION WIDTH 15.1 % (11.6-14.6)
[2019-10-25] MEDS: BLOOD SUGAR DIAGNOSTIC STRIP TEST SCH ×4 (07:30→20:30)
[2019-10-25] MEDS: INSULIN LISPRO 100 UNITS/ML SUBCUT SCH ×4 (07:31→20:58)
[2019-10-25 08:00] VITALS: BP 118/72
[2019-10-25] MEDS: AMLODIPINE 2.5MG TABLET PO SCH ×2 (08:39→21:00)
[2019-10-25] MEDS: FAMOTIDINE 20MG TABLET PO SCH (08:39)
[2019-10-25] MEDS: GABAPENTIN 100MG CAPSULE PO SCH ×3 (08:39→17:30)
[2019-10-25] MEDS: DICLOFENAC SODIUM 0.1% OPHTH 2.5 ML BOTTLE EACHEYE SCH ×4 (08:39→21:21)
[2019-10-25] MEDS: ALLOPURINOL 100 MG TABLET PO SCH (08:39)
[2019-10-25] MEDS: CIPROFLOXACIN 0.3% OPHTH SOLN 2.5ML LEFTEYE SCH (08:39)
[2019-10-25] MEDS: COLCHICINE 0.6MG TABLET PO SCH ×2 (08:39→21:23)
[2019-10-25] MEDS: METOPROLOL TARTRATE 25MG TABLET PO SCH ×2 (08:40→21:00)
[2019-10-25] MEDS: FOLIC ACID 1MG TABLET PO SCH (08:40)
[2019-10-25] MEDS: APIXABAN 2.5 MG TABLET PO SCH (08:40)
[2019-10-25 12:00] VITALS: BP 135/53
[2019-10-25 16:00] VITALS: BP 115/54
[2019-10-25 20:00] VITALS: BP 105/52
[2019-10-25] MEDS: ATORVASTATIN CALCIUM 20MG TABLET PO SCH (21:22)
[2019-10-26] VITALS (10 sets, daily range): BP systolic 129–160; BP diastolic 56–76
[2019-10-26] MEDS: BLOOD SUGAR DIAGNOSTIC STRIP TEST SCH ×4 (06:25→21:00)
[2019-10-26 07:15] LABS: HEMOGLOBIN. 8.7 g/dL (12.0-16.0); MEAN CORPUSCULAR HEMOGLOBIN 28.2 pg (28.0-32.0); MEAN CORPUSCULAR VOLUME 87.6 fL (81.0-99.0); MEAN PLATELET VOLUME 9.2 fl (7.4-10.4); PLATELET 118 x1000/uL (130-400); RED BLOOD CELL COUNT 3.08 mill/uL (4.2-5.4); RED CELL DISTRIBUTION WIDTH 15.1 % (11.6-14.6)
[2019-10-26] MEDS ORDERED: CLINDAMYCIN 600MG PREMIX 50 ML IV NR (07:30)
[2019-10-26] MEDS: INSULIN LISPRO 100 UNITS/ML SUBCUT SCH ×4 (07:46→21:00)
[2019-10-26] MEDS ORDERED: LIDOCAINE HCL 1% 20ML VIAL (Pyxis) INJ ONE (07:57)
[2019-10-26] MEDS ORDERED: HEPARIN 1000 UNITS/ML 10ML ONE (07:57)
[2019-10-26] MEDS ORDERED: SODIUM BICARBONATE 4% (2.4MEQ) 5ML VIAL IV ONE (07:57)
[2019-10-26] MEDS: GABAPENTIN 100MG CAPSULE PO SCH ×3 (10:08→16:56)
[2019-10-26] MEDS: FAMOTIDINE 20MG TABLET PO SCH (10:08)
[2019-10-26] MEDS: METOPROLOL TARTRATE 25MG TABLET PO SCH ×2 (10:09→23:53)
[2019-10-26] MEDS: DICLOFENAC SODIUM 0.1% OPHTH 2.5 ML BOTTLE EACHEYE SCH ×4 (10:09→23:50)
[2019-10-26] MEDS: COLCHICINE 0.6MG TABLET PO SCH ×2 (10:09→23:51)
[2019-10-26] MEDS: FOLIC ACID 1MG TABLET PO SCH (10:09)
[2019-10-26] MEDS: AMLODIPINE 2.5MG TABLET PO SCH ×2 (10:09→23:53)
[2019-10-26] MEDS: ALLOPURINOL 100 MG TABLET PO SCH (10:09)
[2019-10-26 10:33] LABS: PLATELET ESTIMATE SLIGHTLY DECREASED
[2019-10-26 18:37] LABS: CLARITY URINE CLEAR (CLEAR); COLOR URINE YELLOW (YELLOW); KETONES URINE NEGATIVE (NEGATIVE); LEUKOCYTE ESTERASE URINE NEGATIVE (NEGATIVE); NITRITE URINE NEGATIVE (NEGATIVE); OCCULT BLOOD URINE NEGATIVE (NEGATIVE); PROTEIN URINE 2+ (NEGATIVE); SPECIFIC GRAVITY URINE 1.021 (1.005-1.030); UROBILINOGEN URINE 0.2 E.U./dL (0.2-1.0)
[2019-10-26] MEDS: ATORVASTATIN CALCIUM 20MG TABLET PO SCH (23:51)
[2019-10-27] VITALS (8 sets, daily range): BP systolic 116–139; BP diastolic 42–89
[2019-10-27] MEDS: BLOOD SUGAR DIAGNOSTIC STRIP TEST SCH ×4 (06:37→21:29)
[2019-10-27 08:13] LABS: BASOPHILS % 0.3 % (0.0-2.0); EOSINOPHILS % 4.4 % (0.0-5.0); HEMATOCRIT. 29.3 % (36.0-48.0); HEMOGLOBIN. 9.2 g/dL (12.0-16.0); LYMPHOCYTES % 19.7 % (20.0-50.0); MEAN CORPUSCULAR VOLUME 88.8 fL (81.0-99.0); MONOCYTES % 13.2 % (2.0-8.0); NEUTROPHILS % 62.4 % (40.0-76.0); PLATELET 118 x1000/uL (130-400); RED CELL DISTRIBUTION WIDTH 14.7 % (11.6-14.6)
[2019-10-27] MEDS: METOPROLOL TARTRATE 25MG TABLET PO SCH ×2 (09:00→21:00)
[2019-10-27] MEDS: FAMOTIDINE 20MG TABLET PO SCH (09:17)
[2019-10-27] MEDS: ALLOPURINOL 100 MG TABLET PO SCH (09:18)
[2019-10-27] MEDS: FOLIC ACID 1MG TABLET PO SCH (09:18)
[2019-10-27] MEDS: AMLODIPINE 2.5MG TABLET PO SCH ×2 (09:18→21:04)
[2019-10-27] MEDS: GABAPENTIN 100MG CAPSULE PO SCH ×3 (09:18→16:20)
[2019-10-27] MEDS: INSULIN LISPRO 100 UNITS/ML SUBCUT SCH ×4 (09:20→21:38)
[2019-10-27] MEDS: COLCHICINE 0.6MG TABLET PO SCH ×2 (09:20→21:03)
[2019-10-27] MEDS: DICLOFENAC SODIUM 0.1% OPHTH 2.5 ML BOTTLE EACHEYE SCH ×4 (09:21→21:02)
[2019-10-27] MEDS: ATORVASTATIN CALCIUM 20MG TABLET PO SCH (21:03)
[2019-10-28] VITALS: BP 116/68
[2019-10-28 04:00] VITALS: BP 122/64
[2019-10-28] MEDS: BLOOD SUGAR DIAGNOSTIC STRIP TEST SCH ×4 (07:07→20:49)
[2019-10-28 08:00] VITALS: BP 147/63
[2019-10-28] MEDS: INSULIN LISPRO 100 UNITS/ML SUBCUT SCH ×4 (08:51→20:49)
[2019-10-28] MEDS: FAMOTIDINE 20MG TABLET PO SCH (08:54)
[2019-10-28] MEDS: GABAPENTIN 100MG CAPSULE PO SCH ×3 (08:54→18:07)
[2019-10-28] MEDS: FOLIC ACID 1MG TABLET PO SCH (08:55)
[2019-10-28] MEDS: COLCHICINE 0.6MG TABLET PO SCH ×2 (08:55→20:49)
[2019-10-28] MEDS: DICLOFENAC SODIUM 0.1% OPHTH 2.5 ML BOTTLE EACHEYE SCH ×4 (08:55→20:50)
[2019-10-28] MEDS: METOPROLOL TARTRATE 25MG TABLET PO SCH ×2 (08:56→20:49)
[2019-10-28] MEDS: AMLODIPINE 2.5MG TABLET PO SCH ×2 (08:57→20:49)
[2019-10-28] MEDS: ALLOPURINOL 100 MG TABLET PO SCH (09:03)
[2019-10-28 16:16] VITALS: BP 140/47
[2019-10-28] MEDS: APIXABAN 2.5 MG TABLET PO SCH (18:07)
[2019-10-28 20:00] VITALS: BP 118/64
[2019-10-28] MEDS: ATORVASTATIN CALCIUM 20MG TABLET PO SCH (20:49)
[2019-10-29] VITALS: BP 126/68
[2019-10-29 04:00] VITALS: BP 118/66
[2019-10-29] MEDS: BLOOD SUGAR DIAGNOSTIC STRIP TEST SCH (06:33)
[2019-10-29 08:00] VITALS: BP 160/74
[2019-10-29] MEDS: GABAPENTIN 100MG CAPSULE PO SCH (09:02)
[2019-10-29] MEDS: APIXABAN 2.5 MG TABLET PO SCH (09:02)
[2019-10-29] MEDS: ALLOPURINOL 100 MG TABLET PO SCH (09:02)
[2019-10-29] MEDS: FOLIC ACID 1MG TABLET PO SCH (09:02)
[2019-10-29] MEDS: FAMOTIDINE 20MG TABLET PO SCH (09:02)
[2019-10-29] MEDS: COLCHICINE 0.6MG TABLET PO SCH (09:02)
[2019-10-29] MEDS: METOPROLOL TARTRATE 25MG TABLET PO SCH (09:03)
[2019-10-29] MEDS: AMLODIPINE 2.5MG TABLET PO SCH (09:04)
[2019-10-29] MEDS: DICLOFENAC SODIUM 0.1% OPHTH 2.5 ML BOTTLE EACHEYE SCH (09:05)
[2019-10-29] MEDS: INSULIN LISPRO 100 UNITS/ML SUBCUT SCH (09:09)
[2019-10-29 11:07] VITALS: BP 145/80
[2019-10-29 12:00] VITALS: BP 149/65
[2019-10-29] MEDS ORDERED: AMLODIPINE 5MG TABLET PO SCH (21:00)
== END 2019-10-29 12:18 | disposition home or self-care (01) | DRG 291 ==
LOC: ER 15:12 → 6WST 18:59 → EDBEDREQ 19:01 → ENRESERV 20:28
PROVIDERS: ADMIT Internal Medicine Nephrology; ATTEND Internal Medicine Nephrology
PROC: 02H633Z Insertion of Infusion Device into Right Atrium, Percutaneous Approach (ICD-10-PCS; principal; 2019-10-21)
PROC: B518ZZA Fluoroscopy of Superior Vena Cava, Guidance (ICD-10-PCS; 2019-10-21)
PROC: 5A1D70Z Performance of Urinary Filtration, Intermittent, Less than 6 Hours Per Day (ICD-10-PCS; 2019-10-22)
PROC: 02PYX3Z Removal of Infusion Device from Great Vessel, External Approach (ICD-10-PCS; 2019-10-23)
PROC: 5A1D70Z Performance of Urinary Filtration, Intermittent, Less than 6 Hours Per Day (ICD-10-PCS; 2019-10-23)
PROC: 0JH63XZ Insertion of Tunneled Vascular Access Device into Chest Subcutaneous Tissue and Fascia, Percutaneous Approach (ICD-10-PCS; 2019-10-26)
PROC: 02HV33Z Insertion of Infusion Device into Superior Vena Cava, Percutaneous Approach (ICD-10-PCS; 2019-10-26)
PROC: B518ZZA Fluoroscopy of Superior Vena Cava, Guidance (ICD-10-PCS; 2019-10-26)
PROC: 5A1D70Z Performance of Urinary Filtration, Intermittent, Less than 6 Hours Per Day (ICD-10-PCS; 2019-10-26)
PROC: 5A1D70Z Performance of Urinary Filtration, Intermittent, Less than 6 Hours Per Day (ICD-10-PCS; 2019-10-28)
PROC: 5A1D70Z Performance of Urinary Filtration, Intermittent, Less than 6 Hours Per Day (ICD-10-PCS; 2019-10-29)
DX: I13.0 Hypertensive heart and chronic kidney disease with heart failure and stage 1 through stage 4 chronic kidney disease, or unspecified chronic kidney disease (principal); I50.23 Acute on chronic systolic (congestive) heart failure; J96.20 Acute and chronic respiratory failure, unspecified whether with hypoxia or hypercapnia; N17.9 Acute kidney failure, unspecified; E44.1 Mild protein-calorie malnutrition; I48.20 Chronic atrial fibrillation, unspecified; I24.9 Acute ischemic heart disease, unspecified; I48.92 Unspecified atrial flutter; I47.2 Ventricular tachycardia; I42.9 Cardiomyopathy, unspecified; D63.1 Anemia in chronic kidney disease; E11.22 Type 2 diabetes mellitus with diabetic chronic kidney disease; J44.9 Chronic obstructive pulmonary disease, unspecified; N18.9 Chronic kidney disease, unspecified; E78.5 Hyperlipidemia, unspecified; D72.819 Decreased white blood cell count, unspecified; M10.9 Gout, unspecified; I25.10 Atherosclerotic heart disease of native coronary artery without angina pectoris; I27.20 Pulmonary hypertension, unspecified; K21.9 Gastro-esophageal reflux disease without esophagitis; Z96.652 Presence of left artificial knee joint; Z20.828 Contact with and (suspected) exposure to other viral communicable diseases; E78.00 Pure hypercholesterolemia, unspecified; Z86.73 Personal history of transient ischemic attack (TIA), and cerebral infarction without residual deficits; Z88.0 Allergy status to penicillin; Z79.4 Long term (current) use of insulin; Z79.01 Long term (current) use of anticoagulants; Z79.891 Long term (current) use of opiate analgesic; Z79.899 Other long term (current) drug therapy; Z87.891 Personal history of nicotine dependence; Z99.81 Dependence on supplemental oxygen; Z68.29 Body mass index [BMI] 29.0-29.9, adult; Z82.49 Family history of ischemic heart disease and other diseases of the circulatory system
CPT/HCPCS: 36415; 36589; 71045; 76937; 77001; 80048; 80053; 81003; 82962; 83036; 83735; 83880; 84145; 84484; 85025; 86705; 86803; 87340; 87389; 87635; 93005; 93971; 94640; 97110; 97116; 97162; 97166; 97530; 97535; 99285; C1750; C1752; C1769; J1642; J1644; J1650; J1815; J1940; J2060; J2405; J3490

== ENCOUNTER 2019-11-06 12:55 | Inpatient (IN) | payer MEDICARE, MEDICAID ==
[~2019-11-06] VITALS: Ht 165.1 cm; Wt 71.2 kg
[~2019-11-06 12:55] MED LIST changes: -COR25 PO; -INSLIS SUBCUT; -LANTUSUD SUBCUT
[2019-11-06 13:52] LABS: BG BASE EXCESS 5.3 mmol/L (-2.0-2.0); BG DEOXYHEMOGLOBIN 8.3 % (0.0-5.0); BG HCO3 ACT 30.9 mmol/L (22.0-26.0); BG METHEMOGLOBIN 0.2 % (0.0-1.5); BG OXYGEN SATURATION 91.7 % (92.0-98.5); BG OXYHEMOGLOBIN 91.5 % (94.0-97.0); BG PCO2 51.1 mmHg (35.0-45.0); BG PO2 65.9 mmHg (75.0-100.0); BG SAMPLE SITE RIGHT BRACHIAL; BG TOTAL HEMOGLOBIN 10.3 g/dL (12.0-18.0); BG VENT MODE NASAL CANNULA
[2019-11-06 14:11] LABS: BASOPHILS % 0.5 % (0.0-2.0); EOSINOPHILS % 1.7 % (0.0-5.0); HEMATOCRIT. 28.7 % (36.0-48.0); HEMOGLOBIN. 9.2 g/dL (12.0-16.0); LYMPHOCYTES % 8.9 % (20.0-50.0); MEAN CORPUSCULAR HEMOGLOBIN 28.3 pg (28.0-32.0); MEAN PLATELET VOLUME 10.3 fl (7.4-10.4); MONOCYTES % 10.1 % (2.0-8.0); NEUTROPHILS % 78.8 % (40.0-76.0); PLATELET 87 x1000/uL (130-400); RED BLOOD CELL COUNT 3.26 mill/uL (4.2-5.4)
[2019-11-06 14:15] LABS: CHLORIDE 102 mEq/L (98-107)
[2019-11-06] MEDS: POTASSIUM CHLORIDE 20MEQ TABLET SR PO SCH (16:47)
[2019-11-06 17:52] VITALS: BP 132/64
[2019-11-06 18:00] VITALS: BP 132/64
[2019-11-06] MEDS ORDERED: ONDANSETRON HCL 4MG/2ML INJ IV PRN (18:45)
[2019-11-06] MEDS ORDERED: ACETAMINOPHEN 325MG TABLET PO PRN (18:45)
[2019-11-06] MEDS ORDERED: IPRATROPIUM/ALBUTEROL 0.5-3(2.5)MG/3ML NEB HHN PRN (18:45)
[2019-11-06 20:00] VITALS: BP 153/87
[2019-11-07] VITALS: BP 154/51
[2019-11-07 04:00] VITALS: BP 114/42
[2019-11-07 07:17] LABS: MEAN CORPUSCULAR HEMOGLOBIN 28.3 pg (28.0-32.0); MEAN CORPUSCULAR VOLUME 88.2 fL (81.0-99.0); MEAN PLATELET VOLUME 10.4 fl (7.4-10.4); PLATELET 93 x1000/uL (130-400); RED BLOOD CELL COUNT 3.18 mill/uL (4.2-5.4); RED CELL DISTRIBUTION WIDTH 16.3 % (11.6-14.6)
[2019-11-07 08:00] VITALS: BP 124/44
[2019-11-07] MEDS: POTASSIUM CHLORIDE 20MEQ TABLET SR PO SCH (08:14)
[2019-11-07] MEDS ORDERED: DEXTROSE 50% WATER 50ML SYRINGE IV PRN (10:45)
[2019-11-07] MEDS ORDERED: SODIUM POLYSTYRENE SULFONATE 15 G/60 ML BOT PO NR (11:30)
[2019-11-07] MEDS: BLOOD SUGAR DIAGNOSTIC STRIP TEST SCH ×3 (11:45→19:56)
[2019-11-07 12:00] VITALS: BP 110/50
[2019-11-07] MEDS ORDERED: OMEPRAZOLE 20MG CAPSULE EXTENDED RELEASE PO SCH (12:00)
[2019-11-07] MEDS: APIXABAN 2.5 MG TABLET PO SCH ×2 (12:00→16:41)
[2019-11-07] MEDS: INSULIN LISPRO 100 UNITS/ML SUBCUT SCH ×3 (12:12→20:07)
[2019-11-07 16:00] VITALS: BP 111/54
[2019-11-07] MEDS: GUAIFENESIN 600MG ER TABLET PO SCH ×2 (16:41→20:07)
[2019-11-07 19:00] VITALS: BP_SYST 118; BP_SYST 143; BP_DIAS 77; BP_DIAS 79
[2019-11-07 19:24] LABS: PLATELET ESTIMATE DECREASED
[2019-11-08] VITALS (7 sets, daily range): BP systolic 112–133; BP diastolic 46–91
[2019-11-08] MEDS: BLOOD SUGAR DIAGNOSTIC STRIP TEST SCH ×4 (05:41→20:21)
[2019-11-08] MEDS: OMEPRAZOLE 20MG CAPSULE EXTENDED RELEASE PO SCH (05:45)
[2019-11-08] MEDS: INSULIN LISPRO 100 UNITS/ML SUBCUT SCH ×4 (06:35→21:16)
[2019-11-08 07:09] LABS: BASOPHILS % 0.9 % (0.0-2.0); EOSINOPHILS % 2.4 % (0.0-5.0); HEMATOCRIT. 29.3 % (36.0-48.0); HEMOGLOBIN. 9.4 g/dL (12.0-16.0); MEAN CORPUSCULAR HEMOGLOBIN 28.9 pg (28.0-32.0); MEAN CORPUSCULAR VOLUME 90.5 fL (81.0-99.0); MEAN PLATELET VOLUME 10.1 fl (7.4-10.4); MONOCYTES % 11.5 % (2.0-8.0); NEUTROPHILS % 74.2 % (40.0-76.0); PLATELET 105 x1000/uL (130-400); RED BLOOD CELL COUNT 3.23 mill/uL (4.2-5.4); RED CELL DISTRIBUTION WIDTH 17.4 % (11.6-14.6)
[2019-11-08] MEDS: APIXABAN 2.5 MG TABLET PO SCH ×2 (08:32→17:24)
[2019-11-08] MEDS: GUAIFENESIN 600MG ER TABLET PO SCH ×2 (08:32→21:15)
[2019-11-09] VITALS: BP 132/74
[2019-11-09 04:00] VITALS: BP 128/51
[2019-11-09] MEDS: BLOOD SUGAR DIAGNOSTIC STRIP TEST SCH (05:55)
[2019-11-09] MEDS: OMEPRAZOLE 20MG CAPSULE EXTENDED RELEASE PO SCH (06:07)
[2019-11-09] MEDS: INSULIN LISPRO 100 UNITS/ML SUBCUT SCH (06:08)
[2019-11-09 07:39] LABS: BASOPHILS % 0.9 % (0.0-2.0); EOSINOPHILS % 2.9 % (0.0-5.0); HEMATOCRIT. 26.8 % (36.0-48.0); HEMOGLOBIN. 8.8 g/dL (12.0-16.0); LYMPHOCYTES % 17.1 % (20.0-50.0); MEAN CORPUSCULAR HEMOGLOBIN 29.5 pg (28.0-32.0); MEAN CORPUSCULAR VOLUME 89.6 fL (81.0-99.0); NEUTROPHILS % 65.1 % (40.0-76.0); PLATELET 114 x1000/uL (130-400); RED BLOOD CELL COUNT 2.99 mill/uL (4.2-5.4); RED CELL DISTRIBUTION WIDTH 16.6 % (11.6-14.6)
[2019-11-09 07:56] VITALS: BP 153/54
[2019-11-09] MEDS: APIXABAN 2.5 MG TABLET PO SCH (08:17)
[2019-11-09] MEDS: GUAIFENESIN 600MG ER TABLET PO SCH (08:18)
[2019-11-09 10:09] VITALS: BP 146/61
== END 2019-11-09 10:52 | disposition home health service (06) | DRG 73 ==
LOC: ER 13:14 → 5WST 15:18 → ENRESERV 16:33
PROVIDERS: ADMIT Internal Medicine; ATTEND Internal Medicine
PROC: 4B02XSZ Measurement of Cardiac Pacemaker, External Approach (ICD-10-PCS; principal; 2019-11-06)
DX: G90.8 Other disorders of autonomic nervous system (principal); N18.6 End stage renal disease; I50.23 Acute on chronic systolic (congestive) heart failure; J96.20 Acute and chronic respiratory failure, unspecified whether with hypoxia or hypercapnia; I13.2 Hypertensive heart and chronic kidney disease with heart failure and with stage 5 chronic kidney disease, or end stage renal disease; E44.1 Mild protein-calorie malnutrition; I48.20 Chronic atrial fibrillation, unspecified; I42.9 Cardiomyopathy, unspecified; I48.92 Unspecified atrial flutter; D64.9 Anemia, unspecified; D69.6 Thrombocytopenia, unspecified; E11.22 Type 2 diabetes mellitus with diabetic chronic kidney disease; E87.6 Hypokalemia; I27.20 Pulmonary hypertension, unspecified; J44.9 Chronic obstructive pulmonary disease, unspecified; D63.1 Anemia in chronic kidney disease; I25.10 Atherosclerotic heart disease of native coronary artery without angina pectoris; E78.5 Hyperlipidemia, unspecified; M10.9 Gout, unspecified; K21.9 Gastro-esophageal reflux disease without esophagitis; Z96.652 Presence of left artificial knee joint; E87.5 Hyperkalemia; Z79.01 Long term (current) use of anticoagulants; Z88.0 Allergy status to penicillin; Z79.891 Long term (current) use of opiate analgesic; Z79.2 Long term (current) use of antibiotics; Z79.899 Other long term (current) drug therapy; Z79.4 Long term (current) use of insulin; Z86.73 Personal history of transient ischemic attack (TIA), and cerebral infarction without residual deficits; Z68.26 Body mass index [BMI] 26.0-26.9, adult; Z95.0 Presence of cardiac pacemaker; Z87.891 Personal history of nicotine dependence; Z82.49 Family history of ischemic heart disease and other diseases of the circulatory system
CPT/HCPCS: 36415; 36600; 71045; 80048; 80053; 82040; 82375; 82805; 82962; 83735; 83880; 84134; 84484; 85025; 86850; 86900; 93005; 97162; 97166; 99285; J1815; J2405

== ENCOUNTER 2020-01-08 13:35 | Inpatient (IN) | payer MEDICARE, MEDICAID ==
[~2020-01-08] VITALS: Ht 162.6 cm; Wt 71.7 kg
[2020-01-08 16:11] LABS: BASOPHILS % 0.7 % (0.0-2.0); EOSINOPHILS % 2.3 % (0.0-5.0); HEMATOCRIT. 32.2 % (36.0-48.0); HEMOGLOBIN. 10.9 g/dL (12.0-16.0); MEAN CORPUSCULAR HEMOGLOBIN 30.9 pg (28.0-32.0); MEAN CORPUSCULAR VOLUME 91.6 fL (81.0-99.0); MEAN PLATELET VOLUME 8.9 fl (7.4-10.4); MONOCYTES % 9.5 % (2.0-8.0); NEUTROPHILS % 75.5 % (40.0-76.0); PLATELET 109 x1000/uL (130-400); RED BLOOD CELL COUNT 3.51 mill/uL (4.2-5.4); RED CELL DISTRIBUTION WIDTH 14.7 % (11.6-14.6)
[2020-01-08 16:18] LABS: CHLORIDE 98 mEq/L (98-107)
[2020-01-08] MEDS ORDERED: ASPIRIN 325MG EC TABLET PO ONE (18:00)
[2020-01-08 22:00] VITALS: BP 160/53
[2020-01-08] MEDS ORDERED: HYDROCODONE/APAP 7.5/325MG 1 TAB TABLET PO PRN (23:00)
[2020-01-08] MEDS ORDERED: MORPHINE SULFATE 2 MG/ML CPJ (NOT FOR IM USE) IV PRN (23:00)
[2020-01-08] MEDS ORDERED: ACETAMINOPHEN 650MG/20.3ML UDC GT PRN (23:00)
[2020-01-08] MEDS ORDERED: LORAZEPAM 2MG/ML CPJ IV PRN (23:00)
[2020-01-08] MEDS ORDERED: CLONIDINE 0.1MG TABLET PO PRN (23:00)
[2020-01-08] MEDS ORDERED: DOCUSATE SODIUM 100MG CAPSULE PO PRN (23:00)
[2020-01-08] MEDS ORDERED: ENOXAPARIN 30MG/0.3ML SYR SUBCUT SCH (23:00)
[2020-01-08] MEDS ORDERED: IPRATROPIUM/ALBUTEROL 0.5-3(2.5)MG/3ML NEB NEB PRN (23:00)
[2020-01-08] MEDS ORDERED: ONDANSETRON HCL 4MG/2ML INJ IV PRN (23:00)
[2020-01-08 23:20] VITALS: BP 160/55
[2020-01-09] VITALS (7 sets, daily range): BP systolic 98–176; BP diastolic 53–102
[2020-01-09] MEDS ORDERED: DEXTROSE 50% WATER 50ML SYRINGE IV PRN (00:15)
[2020-01-09] MEDS: ATORVASTATIN CALCIUM 20MG TABLET PO SCH ×2 (01:08→21:04)
[2020-01-09] MEDS: DICLOFENAC SODIUM 0.1% OPHTH 2.5 ML BOTTLE EACHEYE SCH ×5 (01:08→21:05)
[2020-01-09] MEDS ORDERED: INSU100I28 SQ (01:56)
[2020-01-09] MEDS ORDERED: INSU100C6 SQ (01:56)
[2020-01-09] MEDS ORDERED: NAPR220T66 PO (01:56)
[2020-01-09] MEDS: INSULIN LISPRO 100 UNITS/ML SUBCUT SCH ×4 (06:45→20:47)
[2020-01-09] MEDS: BLOOD SUGAR DIAGNOSTIC STRIP TEST SCH ×4 (06:45→20:47)
[2020-01-09] MEDS: OMEPRAZOLE 20MG CAPSULE EXTENDED RELEASE PO SCH (06:52)
[2020-01-09 07:43] LABS: BASOPHILS % 1.5 % (0.0-2.0); HEMATOCRIT. 32.2 % (36.0-48.0); HEMOGLOBIN. 10.8 g/dL (12.0-16.0); LYMPHOCYTES % 36.8 % (20.0-50.0); MEAN CORPUSCULAR HEMOGLOBIN 30.8 pg (28.0-32.0); MEAN CORPUSCULAR VOLUME 91.3 fL (81.0-99.0); MEAN PLATELET VOLUME 9.4 fl (7.4-10.4); MONOCYTES % 14.1 % (2.0-8.0); NEUTROPHILS % 41.6 % (40.0-76.0); PLATELET 126 x1000/uL (130-400); RED BLOOD CELL COUNT 3.52 mill/uL (4.2-5.4); RED CELL DISTRIBUTION WIDTH 14.7 % (11.6-14.6)
[2020-01-09 07:55] LABS: PHOSPHORUS 2.6 mg/dL (2.5-4.9)
[2020-01-09] MEDS: AMLODIPINE 5MG TABLET PO SCH ×2 (09:45→21:05)
[2020-01-09] MEDS: ALLOPURINOL 100 MG TABLET PO SCH (09:45)
[2020-01-09] MEDS: GABAPENTIN 100MG CAPSULE PO SCH ×3 (09:45→17:09)
[2020-01-09] MEDS: APIXABAN 2.5 MG TABLET PO SCH ×2 (09:45→17:09)
[2020-01-09] MEDS: FOLIC ACID 1MG TABLET PO SCH (09:45)
[2020-01-09] MEDS: CIPROFLOXACIN 0.3% OPHTH SOLN 2.5ML LEFTEYE SCH ×5 (09:46→21:05)
[2020-01-09] MEDS: LISINOPRIL 2.5MG TABLET PO SCH (14:04)
[2020-01-09 14:55] LABS: CREATINE KINASE MB FRACTION 2.3 ng/mL (0.5-3.6)
[2020-01-10] VITALS (7 sets, daily range): BP systolic 93–154; BP diastolic 37–77
[2020-01-10 04:18] LABS: CREATININE URINE (RAW) 65.1 mg/dl
[2020-01-10] MEDS: OMEPRAZOLE 20MG CAPSULE EXTENDED RELEASE PO SCH (06:13)
[2020-01-10] MEDS: BLOOD SUGAR DIAGNOSTIC STRIP TEST SCH ×4 (06:16→21:02)
[2020-01-10] MEDS: INSULIN LISPRO 100 UNITS/ML SUBCUT SCH ×4 (06:16→21:02)
[2020-01-10 06:34] LABS: BASOPHILS % 2.3 % (0.0-2.0); EOSINOPHILS % 7.4 % (0.0-5.0); HEMATOCRIT. 30.6 % (36.0-48.0); HEMOGLOBIN. 10.4 g/dL (12.0-16.0); LYMPHOCYTES % 38.6 % (20.0-50.0); MEAN CORPUSCULAR VOLUME 90.9 fL (81.0-99.0); MEAN PLATELET VOLUME 9.1 fl (7.4-10.4); MONOCYTES % 12.1 % (2.0-8.0); NEUTROPHILS % 39.6 % (40.0-76.0); PLATELET 128 x1000/uL (130-400); RED BLOOD CELL COUNT 3.37 mill/uL (4.2-5.4); RED CELL DISTRIBUTION WIDTH 14.4 % (11.6-14.6)
[2020-01-10] MEDS: FOLIC ACID 1MG TABLET PO SCH (08:39)
[2020-01-10] MEDS: ALLOPURINOL 100 MG TABLET PO SCH (08:39)
[2020-01-10] MEDS: APIXABAN 2.5 MG TABLET PO SCH (08:39)
[2020-01-10] MEDS: LISINOPRIL 2.5MG TABLET PO SCH (08:39)
[2020-01-10] MEDS: GABAPENTIN 100MG CAPSULE PO SCH ×3 (08:39→17:56)
[2020-01-10] MEDS: AMLODIPINE 5MG TABLET PO SCH ×2 (08:39→21:01)
[2020-01-10] MEDS: CIPROFLOXACIN 0.3% OPHTH SOLN 2.5ML LEFTEYE SCH ×4 (08:40→21:00)
[2020-01-10] MEDS: DICLOFENAC SODIUM 0.1% OPHTH 2.5 ML BOTTLE EACHEYE SCH ×4 (08:40→21:00)
[2020-01-10] MEDS ORDERED: SITA100T11 MT (11:39)
[2020-01-10] MEDS: FUROSEMIDE 20MG/2ML VIAL IVP SCH (14:28)
[2020-01-10] MEDS: ATORVASTATIN CALCIUM 20MG TABLET PO SCH (21:00)
[2020-01-11] VITALS: BP 144/66
[2020-01-11 04:00] VITALS: BP 139/55
[2020-01-11] MEDS: BLOOD SUGAR DIAGNOSTIC STRIP TEST SCH ×2 (06:42→11:59)
[2020-01-11] MEDS: OMEPRAZOLE 20MG CAPSULE EXTENDED RELEASE PO SCH (06:42)
[2020-01-11] MEDS: INSULIN LISPRO 100 UNITS/ML SUBCUT SCH ×2 (06:42→12:18)
[2020-01-11 08:00] VITALS: BP 156/64
[2020-01-11] MEDS: ALLOPURINOL 100 MG TABLET PO SCH (09:33)
[2020-01-11] MEDS: LISINOPRIL 2.5MG TABLET PO SCH (09:33)
[2020-01-11] MEDS: FUROSEMIDE 20MG/2ML VIAL IVP SCH (09:33)
[2020-01-11] MEDS: DICLOFENAC SODIUM 0.1% OPHTH 2.5 ML BOTTLE EACHEYE SCH ×2 (09:33→12:15)
[2020-01-11] MEDS: GABAPENTIN 100MG CAPSULE PO SCH ×2 (09:33→12:15)
[2020-01-11] MEDS: FOLIC ACID 1MG TABLET PO SCH (09:33)
[2020-01-11] MEDS: AMLODIPINE 5MG TABLET PO SCH (09:33)
[2020-01-11] MEDS: CIPROFLOXACIN 0.3% OPHTH SOLN 2.5ML LEFTEYE SCH ×2 (09:33→12:15)
[2020-01-11] MEDS ORDERED: FURO-151 MT (10:36)
[2020-01-11 12:00] VITALS: BP 139/55
[2020-01-11 14:08] VITALS: BP 139/55
== END 2020-01-11 15:20 | disposition home or self-care (01) | DRG 291 ==
LOC: ER 13:35 → 5WST 19:00 → ENRESERV 20:37
PROVIDERS: ADMIT Internal Medicine Nephrology; ATTEND Internal Medicine Nephrology
DX: I13.2 Hypertensive heart and chronic kidney disease with heart failure and with stage 5 chronic kidney disease, or end stage renal disease (principal); N18.6 End stage renal disease; I50.23 Acute on chronic systolic (congestive) heart failure; I48.20 Chronic atrial fibrillation, unspecified; I48.92 Unspecified atrial flutter; E11.22 Type 2 diabetes mellitus with diabetic chronic kidney disease; Z99.2 Dependence on renal dialysis; E87.5 Hyperkalemia; D63.1 Anemia in chronic kidney disease; D69.6 Thrombocytopenia, unspecified; I42.9 Cardiomyopathy, unspecified; E11.649 Type 2 diabetes mellitus with hypoglycemia without coma; E78.5 Hyperlipidemia, unspecified; I27.21 Secondary pulmonary arterial hypertension; J44.9 Chronic obstructive pulmonary disease, unspecified; K21.9 Gastro-esophageal reflux disease without esophagitis; Z96.652 Presence of left artificial knee joint; M10.9 Gout, unspecified; Z79.01 Long term (current) use of anticoagulants; Z79.4 Long term (current) use of insulin; Z86.73 Personal history of transient ischemic attack (TIA), and cerebral infarction without residual deficits; Z87.891 Personal history of nicotine dependence; Z88.0 Allergy status to penicillin; Z79.899 Other long term (current) drug therapy
CPT/HCPCS: 36415; 71045; 80048; 80053; 82550; 82553; 82575; 82947; 82962; 83036; 83735; 84100; 84484; 85025; 93005; 93306; 97116; 97162; 99285; J1815; J1940; A4315

== ENCOUNTER 2020-01-23 08:05 | Inpatient (IN) | payer MEDICARE, MEDICAID ==
[~2020-01-23] VITALS: Ht 160 cm; Wt 67.6 kg
[~2020-01-23 08:05] MED LIST changes: -AMLO5TAB88 PO; -CIPR2.5D17 LEFTEYE; -DICL2.5D8 EACHEYE; +FURO-151 MT; -HYDR-4001 PO; -INSU100C6 SQ; -PRED5DRO22 LEFTEYE; +SITA100T11 MT
[2020-01-23] MEDS ORDERED: ACETAMINOPHEN 325MG TABLET PO PRN (09:45)
[2020-01-23] MEDS ORDERED: DEXTROSE 50% WATER 50ML SYRINGE IV PRN (10:15)
[2020-01-23] MEDS ORDERED: INSULIN GLARGINE UD 100 UNITS/ML SYR SUBCUT NR (10:15)
[2020-01-23 10:32] LABS: EOSINOPHILS % 4.8 % (0.0-5.0); HEMATOCRIT. 37.4 % (36.0-48.0); HEMOGLOBIN. 12.7 g/dL (12.0-16.0); LYMPHOCYTES % 30.6 % (20.0-50.0); MEAN CORPUSCULAR HEMOGLOBIN 30.7 pg (28.0-32.0); MEAN CORPUSCULAR VOLUME 90.9 fL (81.0-99.0); MEAN PLATELET VOLUME 9.2 fl (7.4-10.4); MONOCYTES % 9.3 % (2.0-8.0); NEUTROPHILS % 54.3 % (40.0-76.0); PLATELET 168 x1000/uL (130-400); RED BLOOD CELL COUNT 4.12 mill/uL (4.2-5.4); RED CELL DISTRIBUTION WIDTH 14.4 % (11.6-14.6)
[2020-01-23 10:43] LABS: CHLORIDE 101 mEq/L (98-107); INR 1.1; PROTHROMBIN TIME 11.7 sec (9.6-11.0)
[2020-01-23] MEDS ORDERED: FUROSEMIDE 40MG/4ML VIAL IVP NR (11:15)
[2020-01-23 11:18] LABS: CLARITY URINE CLEAR (CLEAR); COLOR URINE YELLOW (YELLOW); KETONES URINE NEGATIVE (NEGATIVE); LEUKOCYTE ESTERASE URINE NEGATIVE (NEGATIVE); NITRITE URINE NEGATIVE (NEGATIVE); OCCULT BLOOD URINE NEGATIVE (NEGATIVE); PROTEIN URINE TRACE (NEGATIVE); SPECIFIC GRAVITY URINE 1.011 (1.005-1.030); UROBILINOGEN URINE 0.2 E.U./dL (0.2-1.0)
[2020-01-23] MEDS: BLOOD SUGAR DIAGNOSTIC STRIP TEST SCH ×2 (12:02→17:13)
[2020-01-23] MEDS: INSULIN LISPRO 100 UNITS/ML SUBCUT SCH ×2 (12:20→17:14)
[2020-01-23 12:45] VITALS: BP 166/71
[2020-01-23 13:00] VITALS: BP 166/71
[2020-01-23] MEDS ORDERED: SODIUM BICARBONATE 4% (2.4MEQ) 5ML VIAL IV ONE (13:34)
[2020-01-23] MEDS ORDERED: LIDOCAINE HCL 1% 20ML VIAL (Pyxis) INJ ONE (13:35)
[2020-01-23 15:17] VITALS: BP 143/73
[2020-01-23] MEDS ORDERED: APIXABAN 2.5 MG TABLET PO SCH (17:00)
[2020-01-23 17:19] VITALS: BP 143/73
[2020-01-23] MEDS ORDERED: CARVEDILOL 3.125 MG TABLET PO SCH (21:00)
[2020-01-24] MEDS ORDERED: FUROSEMIDE 40MG/4ML VIAL IVP SCH (09:00)
== END 2020-01-23 19:01 | disposition home or self-care (01) | DRG 682 ==
LOC: ER 08:05 → 6WST 09:42 → EDBEDREQ 09:52 → EDBEDREQTM 09:52 → ENRESERV 11:25
PROVIDERS: ADMIT Internal Medicine Nephrology; ATTEND Internal Medicine Nephrology
PROC: 0JPV3XZ Removal of Tunneled Vascular Access Device from Upper Extremity Subcutaneous Tissue and Fascia, Percutaneous Approach (ICD-10-PCS; principal; 2020-01-23)
PROC: 05PYX3Z Removal of Infusion Device from Upper Vein, External Approach (ICD-10-PCS; 2020-01-23)
DX: N17.9 Acute kidney failure, unspecified (principal); I50.23 Acute on chronic systolic (congestive) heart failure; I13.0 Hypertensive heart and chronic kidney disease with heart failure and stage 1 through stage 4 chronic kidney disease, or unspecified chronic kidney disease; I42.9 Cardiomyopathy, unspecified; I48.20 Chronic atrial fibrillation, unspecified; I48.92 Unspecified atrial flutter; E11.65 Type 2 diabetes mellitus with hyperglycemia; D63.1 Anemia in chronic kidney disease; E11.22 Type 2 diabetes mellitus with diabetic chronic kidney disease; E78.5 Hyperlipidemia, unspecified; Z20.828 Contact with and (suspected) exposure to other viral communicable diseases; I27.21 Secondary pulmonary arterial hypertension; J44.9 Chronic obstructive pulmonary disease, unspecified; Z96.652 Presence of left artificial knee joint; M10.9 Gout, unspecified; K21.9 Gastro-esophageal reflux disease without esophagitis; N18.9 Chronic kidney disease, unspecified; Z79.01 Long term (current) use of anticoagulants; Z86.73 Personal history of transient ischemic attack (TIA), and cerebral infarction without residual deficits; Z87.891 Personal history of nicotine dependence; Z95.0 Presence of cardiac pacemaker; Z79.899 Other long term (current) drug therapy; Z88.0 Allergy status to penicillin
CPT/HCPCS: 36415; 36589; 71045; 80053; 81003; 82962; 83036; 85025; 87426; 93005; 99285; J1815; J1940; J3490

== ENCOUNTER 2020-03-04 18:36 | Inpatient (IN) | payer MEDICARE, MEDICAID ==
[~2020-03-04] VITALS: Ht 165.1 cm; Wt 77.6 kg
[2020-03-04 19:51] LABS: BASOPHILS % 1.4 % (0.0-2.0); EOSINOPHILS % 0.3 % (0.0-5.0); HEMATOCRIT. 37.3 % (36.0-48.0); HEMOGLOBIN. 12.2 g/dL (12.0-16.0); LYMPHOCYTES % 17.5 % (20.0-50.0); MEAN CORPUSCULAR HEMOGLOBIN 31.1 pg (28.0-32.0); MEAN CORPUSCULAR VOLUME 94.6 fL (81.0-99.0); MEAN PLATELET VOLUME 9.5 fl (7.4-10.4); MONOCYTES % 6.8 % (2.0-8.0); PLATELET 179 x1000/uL (130-400); RED BLOOD CELL COUNT 3.94 mill/uL (4.2-5.4); RED CELL DISTRIBUTION WIDTH 14.5 % (11.6-14.6)
[2020-03-04 19:57] LABS: CHLORIDE 108 mEq/L (98-107)
[2020-03-04 20:12] LABS: BG BASE EXCESS -4.8 mmol/L (-2.0-2.0); BG CARBOXYHEMOGLOBIN 0.5 % (0.5-1.5); BG FRACTION INSPIRED OXYGEN 28; BG HCO3 ACT 21.3 mmol/L (22.0-26.0); BG METHEMOGLOBIN 0.3 % (0.0-1.5); BG OXYHEMOGLOBIN 97.2 % (94.0-97.0); BG PCO2 43.3 mmHg (35.0-45.0); BG PH 7.309 (7.350-7.450); BG PO2 116.4 mmHg (75.0-100.0); BG SAMPLE SITE RIGHT RADIAL; BG TOTAL HEMOGLOBIN 12.5 g/dL (12.0-18.0); BG VENT MODE NASAL CANNULA
[2020-03-04] MEDS ORDERED: FUROSEMIDE 20MG/2ML VIAL IVP ONE (21:45)
[2020-03-05] MEDS ORDERED: DEXTROSE 50% WATER 50ML SYRINGE IV PRN (10:45)
[2020-03-05] MEDS: BLOOD SUGAR DIAGNOSTIC STRIP TEST SCH ×3 (11:30→21:00)
[2020-03-05] MEDS ORDERED: INSULIN GLARGINE UD 100 UNITS/ML SYR SUBCUT SCH (11:30)
[2020-03-05] MEDS: APIXABAN 2.5 MG TABLET PO SCH ×2 (12:00→22:10)
[2020-03-05] MEDS: AMLODIPINE 10MG TABLET PO SCH (12:00)
[2020-03-05] MEDS: FUROSEMIDE 40MG/4ML VIAL IVP SCH ×2 (12:30→20:43)
[2020-03-05] MEDS: INSULIN LISPRO 100 UNITS/ML SUBCUT SCH ×2 (17:00→21:00)
[2020-03-05] MEDS ORDERED: APIXABAN 5 MG TABLET PO SCH (17:00)
[2020-03-05] MEDS ORDERED: HYDRALAZINE HCL 100MG TABLET PO NR (19:01)
[2020-03-05] MEDS: HYDRALAZINE HCL 100MG TABLET PO SCH (21:15)
[2020-03-05] MEDS: ATORVASTATIN CALCIUM 20MG TABLET PO SCH (21:16)
[2020-03-05] MEDS: INSULIN GLARGINE UD 100 UNITS/ML SYR SUBCUT SCH (22:15)
[2020-03-06 00:45] VITALS: BP 157/128
[2020-03-06 06:49] LABS: BASOPHILS % 1.3 % (0.0-2.0); EOSINOPHILS % 0.4 % (0.0-5.0); HEMATOCRIT. 33.5 % (36.0-48.0); HEMOGLOBIN. 11.1 g/dL (12.0-16.0); LYMPHOCYTES % 9.6 % (20.0-50.0); MEAN CORPUSCULAR HEMOGLOBIN 31.1 pg (28.0-32.0); MEAN CORPUSCULAR VOLUME 93.8 fL (81.0-99.0); MEAN PLATELET VOLUME 9.4 fl (7.4-10.4); MONOCYTES % 7.9 % (2.0-8.0); NEUTROPHILS % 80.8 % (40.0-76.0); PLATELET 156 x1000/uL (130-400); RED BLOOD CELL COUNT 3.57 mill/uL (4.2-5.4); RED CELL DISTRIBUTION WIDTH 14.3 % (11.6-14.6)
[2020-03-06] MEDS: BLOOD SUGAR DIAGNOSTIC STRIP TEST SCH ×4 (07:30→20:57)
[2020-03-06 08:00] VITALS: BP 146/79
[2020-03-06] MEDS: INSULIN LISPRO 100 UNITS/ML SUBCUT SCH ×4 (08:00→21:05)
[2020-03-06] MEDS ORDERED: INSULIN LISPRO 100 UNITS/ML SUBCUT NR (08:45)
[2020-03-06] MEDS: FUROSEMIDE 40MG/4ML VIAL IVP SCH ×2 (09:30→18:09)
[2020-03-06] MEDS: APIXABAN 2.5 MG TABLET PO SCH ×2 (09:31→18:09)
[2020-03-06] MEDS: HYDRALAZINE HCL 100MG TABLET PO SCH ×3 (09:31→21:00)
[2020-03-06] MEDS: AMLODIPINE 10MG TABLET PO SCH (09:31)
[2020-03-06] MEDS: INSULIN GLARGINE UD 100 UNITS/ML SYR SUBCUT SCH ×2 (09:36→22:18)
[2020-03-06] MEDS: ACETAMINOPHEN 325MG TABLET PO PRN (11:36)
[2020-03-06 12:00] VITALS: BP 145/55
[2020-03-06] MEDS: ONDANSETRON HCL 4MG/2ML INJ IV PRN (12:22)
[2020-03-06] MEDS ORDERED: DILTIAZEM HCL 90MG TABLET PO NR (12:45)
[2020-03-06] MEDS ORDERED: DILTIAZEM HCL 5MG/ML 5ML VIAL IV ONE (14:14)
[2020-03-06 16:00] VITALS: BP 143/59
[2020-03-06] MEDS: DILTIAZEM HCL 90MG TABLET PO SCH (18:13)
[2020-03-06 20:00] VITALS: BP 102/58
[2020-03-06] MEDS: ATORVASTATIN CALCIUM 20MG TABLET PO SCH (21:00)
[2020-03-07] VITALS (11 sets, daily range): BP systolic 100–155; BP diastolic 45–98
[2020-03-07] MEDS: DILTIAZEM HCL 90MG TABLET PO SCH ×5 (00:52→18:49)
[2020-03-07] MEDS: HYDRALAZINE HCL 100MG TABLET PO SCH ×3 (06:28→22:00)
[2020-03-07 06:46] LABS: EOSINOPHILS % 0.7 % (0.0-5.0); HEMATOCRIT. 31.4 % (36.0-48.0); HEMOGLOBIN. 10.6 g/dL (12.0-16.0); LYMPHOCYTES % 16.3 % (20.0-50.0); MEAN CORPUSCULAR HEMOGLOBIN 31.4 pg (28.0-32.0); MEAN CORPUSCULAR VOLUME 93.1 fL (81.0-99.0); MEAN PLATELET VOLUME 9.4 fl (7.4-10.4); MONOCYTES % 10.7 % (2.0-8.0); NEUTROPHILS % 71.3 % (40.0-76.0); PLATELET 166 x1000/uL (130-400); RED BLOOD CELL COUNT 3.37 mill/uL (4.2-5.4); RED CELL DISTRIBUTION WIDTH 14.3 % (11.6-14.6)
[2020-03-07] MEDS: BLOOD SUGAR DIAGNOSTIC STRIP TEST SCH ×4 (07:30→21:00)
[2020-03-07] MEDS: INSULIN LISPRO 100 UNITS/ML SUBCUT SCH ×4 (08:00→22:25)
[2020-03-07] MEDS: FUROSEMIDE 40MG/4ML VIAL IVP SCH (08:44)
[2020-03-07] MEDS: APIXABAN 2.5 MG TABLET PO SCH ×2 (08:44→17:11)
[2020-03-07] MEDS: INSULIN GLARGINE UD 100 UNITS/ML SYR SUBCUT SCH ×2 (10:00→22:26)
[2020-03-07] MEDS: ATORVASTATIN CALCIUM 20MG TABLET PO SCH (22:27)
[2020-03-07] MEDS: ACETAMINOPHEN 325MG TABLET PO PRN (22:27)
[2020-03-08] VITALS (10 sets, daily range): BP systolic 91–139; BP diastolic 35–88
[2020-03-08] MEDS ORDERED: DILTIAZEM HCL 90MG TABLET PO NR
[2020-03-08] MEDS: DILTIAZEM HCL 90MG TABLET PO SCH ×3 (05:57→18:00)
[2020-03-08] MEDS: HYDRALAZINE HCL 100MG TABLET PO SCH ×3 (05:57→21:46)
[2020-03-08 06:10] LABS: HEMATOCRIT. 31.8 % (36.0-48.0); HEMOGLOBIN. 10.6 g/dL (12.0-16.0); MEAN CORPUSCULAR HEMOGLOBIN 31.1 pg (28.0-32.0); MEAN CORPUSCULAR VOLUME 92.9 fL (81.0-99.0); MEAN PLATELET VOLUME 9.1 fl (7.4-10.4); PLATELET 172 x1000/uL (130-400); RED BLOOD CELL COUNT 3.42 mill/uL (4.2-5.4); RED CELL DISTRIBUTION WIDTH 14.3 % (11.6-14.6)
[2020-03-08] MEDS: BLOOD SUGAR DIAGNOSTIC STRIP TEST SCH ×4 (07:30→21:15)
[2020-03-08] MEDS: INSULIN LISPRO 100 UNITS/ML SUBCUT SCH ×4 (08:00→21:42)
[2020-03-08] MEDS: APIXABAN 2.5 MG TABLET PO SCH ×2 (09:31→17:34)
[2020-03-08] MEDS: ACETAMINOPHEN 325MG TABLET PO PRN ×3 (12:18→14:37)
[2020-03-08] MEDS: GABAPENTIN 100MG CAPSULE PO SCH (17:35)
[2020-03-08] MEDS: ALLOPURINOL 100 MG TABLET PO SCH (17:35)
[2020-03-08 17:39] LABS: PLATELET ESTIMATE NORMAL
[2020-03-08] MEDS: ATORVASTATIN CALCIUM 20MG TABLET PO SCH (21:15)
[2020-03-08] MEDS: INSULIN GLARGINE UD 100 UNITS/ML SYR SUBCUT SCH (22:00)
[2020-03-09] VITALS (8 sets, daily range): BP systolic 93–145; BP diastolic 35–75
[2020-03-09] MEDS: DILTIAZEM HCL 90MG TABLET PO SCH ×4 (00:57→18:17)
[2020-03-09 01:32] LABS: CREATINE KINASE 86 IU/L (26-192)
[2020-03-09 06:32] LABS: BASOPHILS % 1.1 % (0.0-2.0); EOSINOPHILS % 1.6 % (0.0-5.0); HEMOGLOBIN. 10.5 g/dL (12.0-16.0); LYMPHOCYTES % 22.3 % (20.0-50.0); MEAN CORPUSCULAR HEMOGLOBIN 30.6 pg (28.0-32.0); MEAN CORPUSCULAR VOLUME 93.5 fL (81.0-99.0); MEAN PLATELET VOLUME 9.2 fl (7.4-10.4); MONOCYTES % 14.6 % (2.0-8.0); NEUTROPHILS % 60.4 % (40.0-76.0); PLATELET 168 x1000/uL (130-400); RED BLOOD CELL COUNT 3.42 mill/uL (4.2-5.4); RED CELL DISTRIBUTION WIDTH 14.6 % (11.6-14.6)
[2020-03-09] MEDS: HYDRALAZINE HCL 100MG TABLET PO SCH ×3 (07:26→21:09)
[2020-03-09] MEDS: BLOOD SUGAR DIAGNOSTIC STRIP TEST SCH ×4 (07:40→20:40)
[2020-03-09] MEDS: INSULIN LISPRO 100 UNITS/ML SUBCUT SCH ×4 (08:00→20:57)
[2020-03-09] MEDS: GABAPENTIN 100MG CAPSULE PO SCH ×3 (09:29→18:17)
[2020-03-09] MEDS: ALLOPURINOL 100 MG TABLET PO SCH (09:29)
[2020-03-09] MEDS: APIXABAN 2.5 MG TABLET PO SCH ×2 (09:30→18:17)
[2020-03-09] MEDS: INSULIN GLARGINE UD 100 UNITS/ML SYR SUBCUT SCH (10:52)
[2020-03-09] MEDS: SODIUM CHLORIDE 0.9% 1,000 ML IV SCH (13:52)
[2020-03-09 15:50] LABS: CLARITY URINE CLOUDY (CLEAR); COLOR URINE YELLOW (YELLOW); KETONES URINE TRACE (NEGATIVE); LEUKOCYTE ESTERASE URINE TRACE (NEGATIVE); NITRITE URINE NEGATIVE (NEGATIVE); OCCULT BLOOD URINE NEGATIVE (NEGATIVE); PROTEIN URINE 1+ (NEGATIVE); UROBILINOGEN URINE 0.2 E.U./dL (0.2-1.0)
[2020-03-09] MEDS: ATORVASTATIN CALCIUM 20MG TABLET PO SCH (20:39)
[2020-03-10] VITALS (7 sets, daily range): BP systolic 102–148; BP diastolic 37–87
[2020-03-10] MEDS: DILTIAZEM HCL 90MG TABLET PO SCH ×4 (00:03→18:00)
[2020-03-10] MEDS: INSULIN GLARGINE UD 100 UNITS/ML SYR SUBCUT SCH ×3 (00:05→21:33)
[2020-03-10] MEDS: HYDRALAZINE HCL 100MG TABLET PO SCH ×3 (06:38→21:33)
[2020-03-10] MEDS: BLOOD SUGAR DIAGNOSTIC STRIP TEST SCH ×4 (07:30→21:00)
[2020-03-10] MEDS: INSULIN LISPRO 100 UNITS/ML SUBCUT SCH ×4 (08:00→21:00)
[2020-03-10] MEDS: APIXABAN 2.5 MG TABLET PO SCH ×2 (08:43→18:18)
[2020-03-10] MEDS: ALLOPURINOL 100 MG TABLET PO SCH (08:43)
[2020-03-10] MEDS: GABAPENTIN 100MG CAPSULE PO SCH ×3 (08:44→18:18)
[2020-03-10] MEDS: SODIUM CHLORIDE 0.9% 1,000 ML IV SCH (08:44)
[2020-03-10] MEDS ORDERED: LACTULOSE 20G/30ML UDC PO NR (12:30)
[2020-03-10] MEDS: ONDANSETRON HCL 4MG/2ML INJ IV PRN (12:50)
[2020-03-10] MEDS ORDERED: SODIUM BICARBONATE 4% (2.4MEQ) 5ML VIAL IV ONE (13:25)
[2020-03-10] MEDS ORDERED: LIDOCAINE HCL 1% 20ML VIAL (Pyxis) INJ ONE (13:26)
[2020-03-10 13:38] LABS: BASOPHILS % 0.7 % (0.0-2.0); EOSINOPHILS % 0.6 % (0.0-5.0); HEMATOCRIT. 31.6 % (36.0-48.0); HEMOGLOBIN. 10.7 g/dL (12.0-16.0); LYMPHOCYTES % 11.8 % (20.0-50.0); MEAN CORPUSCULAR HEMOGLOBIN 31.4 pg (28.0-32.0); MEAN CORPUSCULAR VOLUME 92.3 fL (81.0-99.0); MEAN PLATELET VOLUME 8.7 fl (7.4-10.4); NEUTROPHILS % 74.9 % (40.0-76.0); PLATELET 172 x1000/uL (130-400); RED BLOOD CELL COUNT 3.42 mill/uL (4.2-5.4); RED CELL DISTRIBUTION WIDTH 14.3 % (11.6-14.6)
[2020-03-10 13:48] LABS: INR 1.2; PROTHROMBIN TIME 12.9 sec (9.6-11.0)
[2020-03-10] MEDS: DOCUSATE SODIUM 250MG CAPSULE PO SCH (15:17)
[2020-03-10] MEDS: ATORVASTATIN CALCIUM 20MG TABLET PO SCH (21:33)
[2020-03-11] VITALS (8 sets, daily range): BP systolic 83–131; BP diastolic 43–67
[2020-03-11] MEDS ORDERED: NA PHOS,M-B/NA PHOS,DI-BA ENEMA 118ML PR ONE (02:30)
[2020-03-11] MEDS: SODIUM CHLORIDE 0.9% 1,000 ML IV SCH (05:04)
[2020-03-11] MEDS: HYDRALAZINE HCL 100MG TABLET PO SCH ×3 (05:59→21:25)
[2020-03-11] MEDS: DILTIAZEM HCL 90MG TABLET PO SCH ×4 (06:00→18:48)
[2020-03-11] MEDS: BLOOD SUGAR DIAGNOSTIC STRIP TEST SCH ×4 (07:30→21:00)
[2020-03-11] MEDS: INSULIN LISPRO 100 UNITS/ML SUBCUT SCH ×4 (08:00→21:26)
[2020-03-11] MEDS: ALLOPURINOL 100 MG TABLET PO SCH (09:18)
[2020-03-11] MEDS: DOCUSATE SODIUM 250MG CAPSULE PO SCH (09:18)
[2020-03-11] MEDS: APIXABAN 2.5 MG TABLET PO SCH ×2 (09:18→16:51)
[2020-03-11] MEDS: GABAPENTIN 100MG CAPSULE PO SCH ×3 (09:18→16:51)
[2020-03-11] MEDS: INSULIN GLARGINE UD 100 UNITS/ML SYR SUBCUT SCH ×2 (10:18→21:57)
[2020-03-11] MEDS ORDERED: LIDOCAINE HCL 1% 20ML VIAL (Pyxis) INJ ONE (11:15)
[2020-03-11 11:46] LABS: BASOPHILS % 0.8 % (0.0-2.0); EOSINOPHILS % 0.8 % (0.0-5.0); HEMATOCRIT. 30.5 % (36.0-48.0); LYMPHOCYTES % 9.6 % (20.0-50.0); MEAN CORPUSCULAR HEMOGLOBIN 30.6 pg (28.0-32.0); MEAN CORPUSCULAR VOLUME 93.9 fL (81.0-99.0); MEAN PLATELET VOLUME 9.1 fl (7.4-10.4); MONOCYTES % 12.6 % (2.0-8.0); NEUTROPHILS % 76.2 % (40.0-76.0); PLATELET 165 x1000/uL (130-400); RED BLOOD CELL COUNT 3.25 mill/uL (4.2-5.4); RED CELL DISTRIBUTION WIDTH 14.4 % (11.6-14.6)
[2020-03-11] MEDS: ATORVASTATIN CALCIUM 20MG TABLET PO SCH (21:24)
[2020-03-12] VITALS: BP 103/62
[2020-03-12] MEDS: SODIUM CHLORIDE 0.9% 1,000 ML IV SCH ×2 (01:15→20:22)
[2020-03-12 04:00] VITALS: BP 138/74
[2020-03-12] MEDS: HYDRALAZINE HCL 100MG TABLET PO SCH ×3 (05:31→21:31)
[2020-03-12] MEDS: DILTIAZEM HCL 90MG TABLET PO SCH ×5 (05:31→23:27)
[2020-03-12] MEDS: ACETAMINOPHEN 325MG TABLET PO PRN (06:11)
[2020-03-12] MEDS: BLOOD SUGAR DIAGNOSTIC STRIP TEST SCH ×4 (07:30→20:22)
[2020-03-12 08:00] VITALS: BP 125/52
[2020-03-12] MEDS: INSULIN LISPRO 100 UNITS/ML SUBCUT SCH ×4 (08:00→22:02)
[2020-03-12] MEDS: DOCUSATE SODIUM 250MG CAPSULE PO SCH (09:55)
[2020-03-12] MEDS: ALLOPURINOL 100 MG TABLET PO SCH (09:55)
[2020-03-12] MEDS: GABAPENTIN 100MG CAPSULE PO SCH ×3 (09:55→17:33)
[2020-03-12] MEDS: APIXABAN 2.5 MG TABLET PO SCH ×2 (09:55→17:37)
[2020-03-12 10:05] LABS: HEMATOCRIT. 28.3 % (36.0-48.0); HEMOGLOBIN. 9.3 g/dL (12.0-16.0); MEAN CORPUSCULAR HEMOGLOBIN 30.9 pg (28.0-32.0); MEAN CORPUSCULAR VOLUME 94.4 fL (81.0-99.0); MEAN PLATELET VOLUME 9.1 fl (7.4-10.4); PLATELET 147 x1000/uL (130-400); RED CELL DISTRIBUTION WIDTH 14.6 % (11.6-14.6)
[2020-03-12] MEDS: INSULIN GLARGINE UD 100 UNITS/ML SYR SUBCUT SCH ×2 (11:06→22:00)
[2020-03-12 12:00] VITALS: BP 125/70
[2020-03-12 16:00] VITALS: BP 114/51
[2020-03-12 17:52] LABS: PLATELET ESTIMATE NORMAL
[2020-03-12 20:00] VITALS: BP 94/61
[2020-03-12] MEDS: ATORVASTATIN CALCIUM 20MG TABLET PO SCH (20:17)
[2020-03-13] VITALS: BP 147/60
[2020-03-13 04:00] VITALS: BP 141/61
[2020-03-13] MEDS: HYDRALAZINE HCL 100MG TABLET PO SCH ×3 (05:46→21:27)
[2020-03-13] MEDS: DILTIAZEM HCL 90MG TABLET PO SCH ×3 (05:47→18:36)
[2020-03-13 06:52] LABS: HEMATOCRIT. 29.2 % (36.0-48.0); HEMOGLOBIN. 9.6 g/dL (12.0-16.0); MEAN CORPUSCULAR HEMOGLOBIN 31.1 pg (28.0-32.0); MEAN CORPUSCULAR VOLUME 94.2 fL (81.0-99.0); MEAN PLATELET VOLUME 9.3 fl (7.4-10.4); PLATELET 155 x1000/uL (130-400); RED CELL DISTRIBUTION WIDTH 14.4 % (11.6-14.6)
[2020-03-13] MEDS: BLOOD SUGAR DIAGNOSTIC STRIP TEST SCH ×4 (07:30→21:00)
[2020-03-13 08:00] VITALS: BP 142/44
[2020-03-13] MEDS: INSULIN LISPRO 100 UNITS/ML SUBCUT SCH ×4 (08:00→21:00)
[2020-03-13] MEDS: APIXABAN 2.5 MG TABLET PO SCH ×2 (08:44→17:28)
[2020-03-13] MEDS: DOCUSATE SODIUM 250MG CAPSULE PO SCH (09:13)
[2020-03-13] MEDS: GABAPENTIN 100MG CAPSULE PO SCH ×3 (09:14→17:28)
[2020-03-13] MEDS: ALLOPURINOL 100 MG TABLET PO SCH (09:14)
[2020-03-13] MEDS: ACETAMINOPHEN 325MG TABLET PO PRN (09:26)
[2020-03-13] MEDS: INSULIN GLARGINE UD 100 UNITS/ML SYR SUBCUT SCH ×2 (10:10→21:55)
[2020-03-13 12:00] VITALS: BP 104/54
[2020-03-13 14:22] LABS: PLATELET ESTIMATE NORMAL
[2020-03-13 16:00] VITALS: BP 148/121
[2020-03-13] MEDS: SODIUM CHLORIDE 0.9% 1,000 ML IV SCH (17:27)
[2020-03-13 19:09] LABS: HEPATITIS B SURFACE AB < 3.1 mIU/mL
[2020-03-13 19:20] LABS: HEPATITIS B SURFACE ANTIGEN NEGATIVE
[2020-03-13 20:00] VITALS: BP 147/60
[2020-03-13 20:50] LABS: HEPATITIS A AB IGM Equiv (NEGATIVE)
[2020-03-13] MEDS: ATORVASTATIN CALCIUM 20MG TABLET PO SCH (21:27)
[2020-03-14] VITALS (9 sets, daily range): BP systolic 106–135; BP diastolic 35–81
[2020-03-14] MEDS: HYDRALAZINE HCL 100MG TABLET PO SCH ×3 (06:32→21:23)
[2020-03-14] MEDS: DILTIAZEM HCL 90MG TABLET PO SCH ×4 (06:34→17:07)
[2020-03-14] MEDS: BLOOD SUGAR DIAGNOSTIC STRIP TEST SCH ×4 (07:30→21:00)
[2020-03-14 08:09] LABS: HEMATOCRIT. 26.2 % (36.0-48.0); HEMOGLOBIN. 8.6 g/dL (12.0-16.0); MEAN CORPUSCULAR VOLUME 94.4 fL (81.0-99.0); MEAN PLATELET VOLUME 8.9 fl (7.4-10.4); PLATELET 151 x1000/uL (130-400); RED BLOOD CELL COUNT 2.77 mill/uL (4.2-5.4); RED CELL DISTRIBUTION WIDTH 14.2 % (11.6-14.6)
[2020-03-14] MEDS: DOCUSATE SODIUM 250MG CAPSULE PO SCH (09:09)
[2020-03-14] MEDS: ALLOPURINOL 100 MG TABLET PO SCH (09:09)
[2020-03-14] MEDS: GABAPENTIN 100MG CAPSULE PO SCH ×3 (09:09→17:06)
[2020-03-14] MEDS: APIXABAN 2.5 MG TABLET PO SCH ×2 (09:09→17:06)
[2020-03-14] MEDS: INSULIN LISPRO 100 UNITS/ML SUBCUT SCH ×4 (09:10→21:00)
[2020-03-14] MEDS: INSULIN GLARGINE UD 100 UNITS/ML SYR SUBCUT SCH ×2 (11:00→22:32)
[2020-03-14] MEDS: FERROUS SULFATE 300MG/5ML UDC PO SCH ×2 (13:10→17:06)
[2020-03-14] MEDS: SODIUM CHLORIDE 0.9% 1,000 ML IV SCH (14:28)
[2020-03-14 16:56] LABS: PLATELET ESTIMATE NORMAL
[2020-03-14] MEDS: ATORVASTATIN CALCIUM 20MG TABLET PO SCH (21:22)
[2020-03-14] MEDS: ACETAMINOPHEN 325MG TABLET PO PRN (23:07)
[2020-03-15] VITALS (7 sets, daily range): BP systolic 114–160; BP diastolic 43–82
[2020-03-15] MEDS: DILTIAZEM HCL 90MG TABLET PO SCH ×4 (06:00→18:00)
[2020-03-15] MEDS: HYDRALAZINE HCL 100MG TABLET PO SCH ×3 (06:00→21:11)
[2020-03-15] MEDS: ACETAMINOPHEN 325MG TABLET PO PRN ×2 (07:30→13:06)
[2020-03-15] MEDS: INSULIN LISPRO 100 UNITS/ML SUBCUT SCH ×4 (08:00→21:17)
[2020-03-15] MEDS: BLOOD SUGAR DIAGNOSTIC STRIP TEST SCH ×4 (08:27→20:55)
[2020-03-15] MEDS: GABAPENTIN 100MG CAPSULE PO SCH ×3 (08:30→18:35)
[2020-03-15] MEDS: APIXABAN 2.5 MG TABLET PO SCH ×2 (08:30→18:33)
[2020-03-15] MEDS: DOCUSATE SODIUM 250MG CAPSULE PO SCH (08:30)
[2020-03-15] MEDS: FERROUS SULFATE 300MG/5ML UDC PO SCH ×3 (08:30→18:26)
[2020-03-15] MEDS: ALLOPURINOL 100 MG TABLET PO SCH (08:57)
[2020-03-15] MEDS: SODIUM CHLORIDE 0.9% 1,000 ML IV SCH (08:57)
[2020-03-15] MEDS: INSULIN GLARGINE UD 100 UNITS/ML SYR SUBCUT SCH ×2 (10:00→21:16)
[2020-03-15 12:57] LABS: HEMATOCRIT. 26.7 % (36.0-48.0); HEMOGLOBIN. 8.7 g/dL (12.0-16.0); MEAN CORPUSCULAR HEMOGLOBIN 30.8 pg (28.0-32.0); MEAN CORPUSCULAR VOLUME 94.8 fL (81.0-99.0); MEAN PLATELET VOLUME 8.4 fl (7.4-10.4); PLATELET 163 x1000/uL (130-400); RED BLOOD CELL COUNT 2.81 mill/uL (4.2-5.4); RED CELL DISTRIBUTION WIDTH 14.1 % (11.6-14.6)
[2020-03-15 14:29] LABS: VITAMIN B12 SERUM 681 pg/mL (211-911)
[2020-03-15 16:03] LABS: PLATELET ESTIMATE NORMAL
[2020-03-15] MEDS: ATORVASTATIN CALCIUM 20MG TABLET PO SCH (21:11)
[2020-03-16] VITALS (8 sets, daily range): BP systolic 117–149; BP diastolic 46–65
[2020-03-16] MEDS: DILTIAZEM HCL 90MG TABLET PO SCH ×5 (00:23→23:43)
[2020-03-16] MEDS: SODIUM CHLORIDE 0.9% 1,000 ML IV SCH ×2 (04:20→23:41)
[2020-03-16] MEDS: HYDRALAZINE HCL 100MG TABLET PO SCH ×3 (06:31→21:51)
[2020-03-16 07:18] LABS: HEMATOCRIT. 26.2 % (36.0-48.0); HEMOGLOBIN. 8.6 g/dL (12.0-16.0); MEAN CORPUSCULAR HEMOGLOBIN 30.7 pg (28.0-32.0); MEAN CORPUSCULAR VOLUME 93.9 fL (81.0-99.0); MEAN PLATELET VOLUME 8.6 fl (7.4-10.4); PLATELET 176 x1000/uL (130-400); RED BLOOD CELL COUNT 2.79 mill/uL (4.2-5.4); RED CELL DISTRIBUTION WIDTH 13.7 % (11.6-14.6)
[2020-03-16] MEDS: BLOOD SUGAR DIAGNOSTIC STRIP TEST SCH ×4 (07:30→21:00)
[2020-03-16] MEDS: INSULIN LISPRO 100 UNITS/ML SUBCUT SCH ×4 (08:00→21:00)
[2020-03-16] MEDS: APIXABAN 2.5 MG TABLET PO SCH ×2 (09:17→18:38)
[2020-03-16] MEDS: DOCUSATE SODIUM 250MG CAPSULE PO SCH (09:17)
[2020-03-16] MEDS: FERROUS SULFATE 300MG/5ML UDC PO SCH ×3 (09:17→18:37)
[2020-03-16] MEDS: GABAPENTIN 100MG CAPSULE PO SCH ×3 (09:17→18:37)
[2020-03-16] MEDS: ALLOPURINOL 100 MG TABLET PO SCH (09:17)
[2020-03-16] MEDS: INSULIN GLARGINE UD 100 UNITS/ML SYR SUBCUT SCH ×2 (11:21→21:29)
[2020-03-16] MEDS: ATORVASTATIN CALCIUM 20MG TABLET PO SCH (21:50)
[2020-03-16 22:27] LABS: PLATELET ESTIMATE NORMAL
[2020-03-17] VITALS: BP 145/71
[2020-03-17 04:00] VITALS: BP 160/71
[2020-03-17] MEDS: HYDRALAZINE HCL 100MG TABLET PO SCH ×3 (05:44→22:00)
[2020-03-17] MEDS: DILTIAZEM HCL 90MG TABLET PO SCH ×3 (05:45→17:29)
[2020-03-17] MEDS: ACETAMINOPHEN 325MG TABLET PO PRN (06:15)
[2020-03-17 07:49] LABS: BASOPHILS % 1.8 % (0.0-2.0); EOSINOPHILS % 4.2 % (0.0-5.0); HEMATOCRIT. 25.7 % (36.0-48.0); HEMOGLOBIN. 8.4 g/dL (12.0-16.0); LYMPHOCYTES % 14.5 % (20.0-50.0); MEAN CORPUSCULAR HEMOGLOBIN 30.7 pg (28.0-32.0); MEAN CORPUSCULAR VOLUME 94.3 fL (81.0-99.0); MEAN PLATELET VOLUME 8.4 fl (7.4-10.4); MONOCYTES % 14.6 % (2.0-8.0); NEUTROPHILS % 64.9 % (40.0-76.0); PLATELET 193 x1000/uL (130-400); RED BLOOD CELL COUNT 2.73 mill/uL (4.2-5.4)
[2020-03-17] MEDS: INSULIN LISPRO 100 UNITS/ML SUBCUT SCH ×4 (08:00→21:00)
[2020-03-17] MEDS: BLOOD SUGAR DIAGNOSTIC STRIP TEST SCH ×4 (08:03→21:00)
[2020-03-17] MEDS: GABAPENTIN 100MG CAPSULE PO SCH ×3 (08:14→18:32)
[2020-03-17] MEDS: DOCUSATE SODIUM 250MG CAPSULE PO SCH (08:14)
[2020-03-17] MEDS: ALLOPURINOL 100 MG TABLET PO SCH (08:15)
[2020-03-17] MEDS: APIXABAN 2.5 MG TABLET PO SCH ×2 (08:15→18:32)
[2020-03-17] MEDS: FERROUS SULFATE 300MG/5ML UDC PO SCH ×3 (08:15→18:31)
[2020-03-17 12:00] VITALS: BP 111/53
[2020-03-17 16:00] VITALS: BP 115/61
[2020-03-17] MEDS ORDERED: HEPARIN SODIUM 1,000 UNIT/1ML VIAL IV NR (20:30)
[2020-03-17] MEDS ORDERED: INSULIN GLARGINE UD 100 UNITS/ML SYR SUBCUT SCH (22:00)
[2020-03-17] MEDS: SODIUM CHLORIDE 0.9% 1,000 ML IV SCH (22:32)
[2020-03-17] MEDS: ATORVASTATIN CALCIUM 20MG TABLET PO SCH (22:32)
[2020-03-17] MEDS: INSULIN GLARGINE UD 100 UNITS/ML SYR SUBCUT SCH (23:23)
[2020-03-18] MEDS: DILTIAZEM HCL 90MG TABLET PO SCH ×5 (00:30→23:23)
[2020-03-18] MEDS: HYDRALAZINE HCL 100MG TABLET PO SCH ×3 (05:18→21:00)
[2020-03-18] MEDS: BLOOD SUGAR DIAGNOSTIC STRIP TEST SCH ×4 (07:30→21:40)
[2020-03-18 07:47] LABS: BASOPHILS % 1.8 % (0.0-2.0); EOSINOPHILS % 4.3 % (0.0-5.0); HEMATOCRIT. 28.2 % (36.0-48.0); HEMOGLOBIN. 8.7 g/dL (12.0-16.0); MEAN CORPUSCULAR HEMOGLOBIN 30.6 pg (28.0-32.0); MEAN CORPUSCULAR VOLUME 99.5 fL (81.0-99.0); MEAN PLATELET VOLUME 9.2 fl (7.4-10.4); MONOCYTES % 12.8 % (2.0-8.0); NEUTROPHILS % 67.1 % (40.0-76.0); PLATELET 157 x1000/uL (130-400); RED BLOOD CELL COUNT 2.84 mill/uL (4.2-5.4); RED CELL DISTRIBUTION WIDTH 14.6 % (11.6-14.6)
[2020-03-18 08:00] VITALS: BP 125/82
[2020-03-18] MEDS: INSULIN LISPRO 100 UNITS/ML SUBCUT SCH ×4 (08:00→21:00)
[2020-03-18] MEDS: GABAPENTIN 100MG CAPSULE PO SCH ×3 (08:29→17:18)
[2020-03-18] MEDS: FERROUS SULFATE 300MG/5ML UDC PO SCH ×3 (08:29→17:18)
[2020-03-18] MEDS: DOCUSATE SODIUM 250MG CAPSULE PO SCH (08:29)
[2020-03-18] MEDS: APIXABAN 2.5 MG TABLET PO SCH ×2 (08:30→17:18)
[2020-03-18] MEDS: ALLOPURINOL 100 MG TABLET PO SCH (08:30)
[2020-03-18] MEDS: INSULIN GLARGINE UD 100 UNITS/ML SYR SUBCUT SCH ×2 (10:00→21:41)
[2020-03-18 11:32] VITALS: BP 150/59
[2020-03-18] MEDS: IRON SUCROSE COMPLEX 100 MG/5 ML ML IV SCH (13:20)
[2020-03-18 16:00] VITALS: BP 118/68
[2020-03-18] MEDS: SODIUM CHLORIDE 0.9% 1,000 ML IV SCH (17:18)
[2020-03-18 20:00] VITALS: BP 131/56
[2020-03-18] MEDS: ATORVASTATIN CALCIUM 20MG TABLET PO SCH (20:59)
[2020-03-19] VITALS (20 sets, daily range): BP systolic 90–144; BP diastolic 36–86
[2020-03-19] MEDS: ONDANSETRON HCL 4MG/2ML INJ IV PRN (03:26)
[2020-03-19] MEDS: DILTIAZEM HCL 90MG TABLET PO SCH ×3 (06:10→18:59)
[2020-03-19] MEDS: HYDRALAZINE HCL 100MG TABLET PO SCH ×3 (06:10→21:28)
[2020-03-19 07:26] LABS: BASOPHILS % 1.4 % (0.0-2.0); EOSINOPHILS % 3.9 % (0.0-5.0); HEMATOCRIT. 27.2 % (36.0-48.0); LYMPHOCYTES % 10.3 % (20.0-50.0); MEAN CORPUSCULAR HEMOGLOBIN 30.8 pg (28.0-32.0); MEAN CORPUSCULAR VOLUME 93.3 fL (81.0-99.0); MONOCYTES % 10.8 % (2.0-8.0); NEUTROPHILS % 73.6 % (40.0-76.0); PLATELET 219 x1000/uL (130-400); RED BLOOD CELL COUNT 2.92 mill/uL (4.2-5.4); RED CELL DISTRIBUTION WIDTH 13.7 % (11.6-14.6)
[2020-03-19] MEDS: BLOOD SUGAR DIAGNOSTIC STRIP TEST SCH ×4 (07:30→21:00)
[2020-03-19] MEDS: FERROUS SULFATE 300MG/5ML UDC PO SCH ×4 (08:00→18:00)
[2020-03-19] MEDS: INSULIN LISPRO 100 UNITS/ML SUBCUT SCH ×4 (08:00→21:00)
[2020-03-19] MEDS: GABAPENTIN 100MG CAPSULE PO SCH ×3 (09:38→19:03)
[2020-03-19] MEDS: ALLOPURINOL 100 MG TABLET PO SCH (09:38)
[2020-03-19] MEDS: DOCUSATE SODIUM 250MG CAPSULE PO SCH (09:38)
[2020-03-19] MEDS: INSULIN GLARGINE UD 100 UNITS/ML SYR SUBCUT SCH ×2 (09:42→21:01)
[2020-03-19] MEDS ORDERED: CLINDAMYCIN 600MG PREMIX 50 ML IV SCH (11:30)
[2020-03-19] MEDS ORDERED: SODIUM BICARBONATE 4% (2.4MEQ) 5ML VIAL IV ONE (13:36)
[2020-03-19] MEDS ORDERED: LIDOCAINE HCL 1% 20ML VIAL (Pyxis) INJ ONE (13:36)
[2020-03-19] MEDS ORDERED: FENTANYL CITRATE/PF 50MCG/ML 2ML VIAL IV NR (13:43)
[2020-03-19] MEDS ORDERED: FENTANYL CITRATE/PF 50MCG/ML 2ML VIAL ONE (13:43)
[2020-03-19] MEDS: IRON SUCROSE COMPLEX 100 MG/5 ML ML IV SCH (15:13)
[2020-03-19] MEDS: ATORVASTATIN CALCIUM 20MG TABLET PO SCH (21:01)
[2020-03-20] VITALS (7 sets, daily range): BP systolic 89–174; BP diastolic 61–99
[2020-03-20] MEDS: DILTIAZEM HCL 90MG TABLET PO SCH ×4 (06:00→18:00)
[2020-03-20] MEDS: HYDRALAZINE HCL 100MG TABLET PO SCH ×3 (06:00→22:00)
[2020-03-20] MEDS: BLOOD SUGAR DIAGNOSTIC STRIP TEST SCH ×4 (07:30→21:58)
[2020-03-20] MEDS: INSULIN LISPRO 100 UNITS/ML SUBCUT SCH ×4 (08:00→22:12)
[2020-03-20] MEDS ORDERED: INSU100I28 SQ (08:31)
[2020-03-20] MEDS: FERROUS SULFATE 300MG/5ML UDC PO SCH ×3 (10:02→17:44)
[2020-03-20] MEDS: ALLOPURINOL 100 MG TABLET PO SCH (10:02)
[2020-03-20] MEDS: GABAPENTIN 100MG CAPSULE PO SCH ×3 (10:02→17:44)
[2020-03-20] MEDS: DOCUSATE SODIUM 250MG CAPSULE PO SCH (10:03)
[2020-03-20 13:08] LABS: BG BASE EXCESS -0.4 mmol/L (-2.0-2.0); BG CARBOXYHEMOGLOBIN 0.3 % (0.5-1.5); BG DEOXYHEMOGLOBIN 1.1 % (0.0-5.0); BG FRACTION INSPIRED OXYGEN 32; BG HCO3 ACT 24.9 mmol/L (22.0-26.0); BG METHEMOGLOBIN 0.3 % (0.0-1.5); BG OXYGEN SATURATION 98.9 % (92.0-98.5); BG OXYHEMOGLOBIN 98.3 % (94.0-97.0); BG PCO2 43.5 mmHg (35.0-45.0); BG PH 7.375 (7.350-7.450); BG PO2 161.3 mmHg (75.0-100.0); BG SAMPLE SITE RIGHT RADIAL; BG TOTAL HEMOGLOBIN 9.1 g/dL (12.0-18.0); BG VENT MODE NASAL CANNULA
[2020-03-20] MEDS: IRON SUCROSE COMPLEX 100 MG/5 ML ML IV SCH (14:57)
[2020-03-21] VITALS (9 sets, daily range): BP systolic 103–157; BP diastolic 50–75
[2020-03-21] MEDS: ATORVASTATIN CALCIUM 20MG TABLET PO SCH ×2 (00:31→21:01)
[2020-03-21] MEDS: DILTIAZEM HCL 90MG TABLET PO SCH ×4 (00:38→18:17)
[2020-03-21] MEDS: HYDRALAZINE HCL 100MG TABLET PO SCH ×4 (00:39→21:02)
[2020-03-21] MEDS: BLOOD SUGAR DIAGNOSTIC STRIP TEST SCH ×4 (07:30→21:02)
[2020-03-21] MEDS: INSULIN LISPRO 100 UNITS/ML SUBCUT SCH ×4 (08:00→21:00)
[2020-03-21] MEDS: DOCUSATE SODIUM 250MG CAPSULE PO SCH (08:46)
[2020-03-21] MEDS: FERROUS SULFATE 300MG/5ML UDC PO SCH ×3 (08:46→18:16)
[2020-03-21] MEDS: GABAPENTIN 100MG CAPSULE PO SCH ×3 (08:46→18:16)
[2020-03-21] MEDS: ALLOPURINOL 100 MG TABLET PO SCH (08:48)
[2020-03-21] MEDS ORDERED: LACTULOSE 300 ML in WATER FOR IRRIGATION,STERILE 700 ML IR NR (13:00)
[2020-03-21] MEDS: IRON SUCROSE COMPLEX 100 MG/5 ML ML IV SCH (14:18)
[2020-03-21] MEDS ORDERED: LACTULOSE 300 ML in WATER FOR IRRIGATION,STERILE 700 ML IR ONE (14:45)
[2020-03-21] MEDS: LACTULOSE 20G/30ML UDC PO SCH ×2 (15:16→21:01)
[2020-03-21] MEDS ORDERED: LACTULOSE 20G/30ML UDC PO SCH ×2 (18:00→22:00)
[2020-03-22] VITALS (7 sets, daily range): BP systolic 120–140; BP diastolic 32–71
[2020-03-22] MEDS: DILTIAZEM HCL 90MG TABLET PO SCH ×2 (00:19→06:16)
[2020-03-22] MEDS: LACTULOSE 20G/30ML UDC PO SCH ×3 (06:15→21:42)
[2020-03-22] MEDS: HYDRALAZINE HCL 100MG TABLET PO SCH ×2 (06:16→13:12)
[2020-03-22 07:10] LABS: T4 FREE 1.12 ng/dL (0.76-1.46)
[2020-03-22 07:43] LABS: BASOPHILS % 1.3 % (0.0-2.0); EOSINOPHILS % 3.6 % (0.0-5.0); HEMATOCRIT. 24.7 % (36.0-48.0); HEMOGLOBIN. 8.1 g/dL (12.0-16.0); LYMPHOCYTES % 14.9 % (20.0-50.0); MEAN CORPUSCULAR HEMOGLOBIN 31.3 pg (28.0-32.0); MEAN CORPUSCULAR VOLUME 94.8 fL (81.0-99.0); MEAN PLATELET VOLUME 8.2 fl (7.4-10.4); MONOCYTES % 11.5 % (2.0-8.0); NEUTROPHILS % 68.7 % (40.0-76.0); PLATELET 209 x1000/uL (130-400); RED BLOOD CELL COUNT 2.61 mill/uL (4.2-5.4); RED CELL DISTRIBUTION WIDTH 13.7 % (11.6-14.6)
[2020-03-22] MEDS: BLOOD SUGAR DIAGNOSTIC STRIP TEST SCH ×4 (07:46→21:00)
[2020-03-22] MEDS: FERROUS SULFATE 300MG/5ML UDC PO SCH ×3 (08:00→12:08)
[2020-03-22 08:06] LABS: VITAMIN B12 SERUM 721 pg/mL (211-911)
[2020-03-22 08:22] LABS: FOLIC ACID (FOLATE) SERUM > 20.00 ng/mL (>5.38)
[2020-03-22] MEDS: INSULIN LISPRO 100 UNITS/ML SUBCUT SCH ×4 (08:22→21:43)
[2020-03-22] MEDS: DOCUSATE SODIUM 250MG CAPSULE PO SCH (08:23)
[2020-03-22] MEDS: GABAPENTIN 100MG CAPSULE PO SCH ×3 (08:23→17:21)
[2020-03-22] MEDS: ALLOPURINOL 100 MG TABLET PO SCH (08:24)
[2020-03-22] MEDS: IRON SUCROSE COMPLEX 100 MG/5 ML ML IV SCH (12:08)
[2020-03-22] MEDS: HYDRALAZINE HCL 25MG TABLET PO SCH ×2 (14:00→22:00)
[2020-03-22] MEDS: ATORVASTATIN CALCIUM 20MG TABLET PO SCH (21:42)
[2020-03-23] VITALS (7 sets, daily range): BP systolic 122–150; BP diastolic 44–89
[2020-03-23] MEDS: LACTULOSE 20G/30ML UDC PO SCH (06:00)
[2020-03-23] MEDS: HYDRALAZINE HCL 25MG TABLET PO SCH ×3 (06:11→22:21)
[2020-03-23] MEDS: BLOOD SUGAR DIAGNOSTIC STRIP TEST SCH ×4 (07:30→21:00)
[2020-03-23] MEDS: INSULIN LISPRO 100 UNITS/ML SUBCUT SCH ×5 (08:00→21:00)
[2020-03-23 09:43] LABS: BASOPHILS % 1.2 % (0.0-2.0); HEMATOCRIT. 25.5 % (36.0-48.0); HEMOGLOBIN. 8.3 g/dL (12.0-16.0); LYMPHOCYTES % 14.7 % (20.0-50.0); MEAN CORPUSCULAR HEMOGLOBIN 30.5 pg (28.0-32.0); MEAN CORPUSCULAR VOLUME 93.2 fL (81.0-99.0); MEAN PLATELET VOLUME 7.9 fl (7.4-10.4); MONOCYTES % 11.2 % (2.0-8.0); NEUTROPHILS % 69.9 % (40.0-76.0); PLATELET 205 x1000/uL (130-400); RED BLOOD CELL COUNT 2.74 mill/uL (4.2-5.4); RED CELL DISTRIBUTION WIDTH 13.7 % (11.6-14.6)
[2020-03-23] MEDS: ALLOPURINOL 100 MG TABLET PO SCH (09:56)
[2020-03-23] MEDS: GABAPENTIN 100MG CAPSULE PO SCH ×3 (09:56→18:04)
[2020-03-23] MEDS: DOCUSATE SODIUM 250MG CAPSULE PO SCH (09:56)
[2020-03-23] MEDS ORDERED: LACTULOSE 20G/30ML UDC PO NR (17:30)
[2020-03-23] MEDS: ATORVASTATIN CALCIUM 20MG TABLET PO SCH (22:21)
[2020-03-24] VITALS (7 sets, daily range): BP systolic 104–156; BP diastolic 52–77
[2020-03-24] MEDS: HYDRALAZINE HCL 25MG TABLET PO SCH ×2 (06:50→14:00)
[2020-03-24] MEDS: BLOOD SUGAR DIAGNOSTIC STRIP TEST SCH ×4 (07:30→20:39)
[2020-03-24] MEDS: INSULIN LISPRO 100 UNITS/ML SUBCUT SCH ×4 (08:00→21:24)
[2020-03-24] MEDS: ALLOPURINOL 100 MG TABLET PO SCH (10:08)
[2020-03-24] MEDS: GABAPENTIN 100MG CAPSULE PO SCH ×3 (10:08→17:05)
[2020-03-24] MEDS: DOCUSATE SODIUM 250MG CAPSULE PO SCH (10:08)
[2020-03-24] MEDS ORDERED: INSU100I28 SQ (12:01)
[2020-03-24] MEDS ORDERED: LACT10SO7 MT (12:01)
[2020-03-24] MEDS ORDERED: DILT360C27 MT (12:01)
[2020-03-24] MEDS: FUROSEMIDE 40MG/4ML VIAL IVP SCH (17:05)
[2020-03-24] MEDS: ATORVASTATIN CALCIUM 20MG TABLET PO SCH (20:39)
[2020-03-24] MEDS: ACETAMINOPHEN 325MG TABLET PO PRN (20:39)
[2020-03-25] MEDS: HYDRALAZINE HCL 25MG TABLET PO SCH ×4 (00:48→21:40)
[2020-03-25 08:00] VITALS: BP 146/91
[2020-03-25] MEDS: INSULIN LISPRO 100 UNITS/ML SUBCUT SCH ×4 (08:00→21:00)
[2020-03-25] MEDS: BLOOD SUGAR DIAGNOSTIC STRIP TEST SCH ×4 (08:07→21:00)
[2020-03-25] MEDS: DOCUSATE SODIUM 250MG CAPSULE PO SCH (08:07)
[2020-03-25] MEDS: FUROSEMIDE 40MG/4ML VIAL IVP SCH (08:07)
[2020-03-25] MEDS: GABAPENTIN 100MG CAPSULE PO SCH ×3 (08:07→16:58)
[2020-03-25] MEDS: ALLOPURINOL 100 MG TABLET PO SCH (08:07)
[2020-03-25 09:46] LABS: EOSINOPHILS % 3.7 % (0.0-5.0); HEMATOCRIT. 26.4 % (36.0-48.0); HEMOGLOBIN. 8.6 g/dL (12.0-16.0); LYMPHOCYTES % 20.7 % (20.0-50.0); MEAN CORPUSCULAR HEMOGLOBIN 30.6 pg (28.0-32.0); MEAN CORPUSCULAR VOLUME 93.2 fL (81.0-99.0); MEAN PLATELET VOLUME 8.6 fl (7.4-10.4); MONOCYTES % 12.9 % (2.0-8.0); NEUTROPHILS % 60.7 % (40.0-76.0); PLATELET 207 x1000/uL (130-400); RED BLOOD CELL COUNT 2.83 mill/uL (4.2-5.4); RED CELL DISTRIBUTION WIDTH 13.6 % (11.6-14.6)
[2020-03-25 12:00] VITALS: BP 151/70
[2020-03-25 16:00] VITALS: BP 136/45
[2020-03-25 20:00] VITALS: BP 114/71
[2020-03-25] MEDS: ATORVASTATIN CALCIUM 20MG TABLET PO SCH (21:40)
[2020-03-25] MEDS ORDERED: EPOETIN ALFA-EPBX 10,000 UNIT/ML VIAL SUBCUT SCH (23:00)
[2020-03-25] MEDS: ACETAMINOPHEN 325MG TABLET PO PRN (23:39)
[2020-03-26] VITALS (7 sets, daily range): BP systolic 101–143; BP diastolic 55–84
[2020-03-26] MEDS: HYDRALAZINE HCL 25MG TABLET PO SCH ×3 (05:59→21:03)
[2020-03-26] MEDS: BLOOD SUGAR DIAGNOSTIC STRIP TEST SCH ×4 (07:30→20:54)
[2020-03-26] MEDS: ALLOPURINOL 100 MG TABLET PO SCH (09:20)
[2020-03-26] MEDS: GABAPENTIN 100MG CAPSULE PO SCH ×3 (09:20→17:35)
[2020-03-26] MEDS: FUROSEMIDE 40MG/4ML VIAL IVP SCH (09:20)
[2020-03-26] MEDS: DOCUSATE SODIUM 250MG CAPSULE PO SCH (09:20)
[2020-03-26] MEDS: INSULIN LISPRO 100 UNITS/ML SUBCUT SCH ×4 (09:31→20:58)
[2020-03-26] MEDS: ACETAMINOPHEN 325MG TABLET PO PRN (14:33)
[2020-03-26] MEDS: ATORVASTATIN CALCIUM 20MG TABLET PO SCH (20:52)
[2020-03-27] VITALS: BP 157/62
[2020-03-27 01:59] VITALS: BP 132/64
[2020-03-27 04:00] VITALS: BP 122/62
[2020-03-27] MEDS: HYDRALAZINE HCL 25MG TABLET PO SCH (06:08)
[2020-03-27] MEDS: BLOOD SUGAR DIAGNOSTIC STRIP TEST SCH ×2 (07:30→12:30)
[2020-03-27 08:00] VITALS: BP 126/65
[2020-03-27] MEDS: INSULIN LISPRO 100 UNITS/ML SUBCUT SCH ×2 (08:00→13:00)
[2020-03-27] MEDS: GABAPENTIN 100MG CAPSULE PO SCH ×2 (08:14→12:38)
[2020-03-27] MEDS: DOCUSATE SODIUM 250MG CAPSULE PO SCH (08:14)
[2020-03-27] MEDS: FUROSEMIDE 40MG/4ML VIAL IVP SCH (08:14)
[2020-03-27] MEDS: ALLOPURINOL 100 MG TABLET PO SCH (08:19)
[2020-03-27 12:00] VITALS: BP 160/65
== END 2020-03-27 13:30 | DRG 291 ==
LOC: ER 18:36 → MICUSO 21:42 → 5EST 03-05 22:55
PROVIDERS: ADMIT Internal Medicine; ATTEND Internal Medicine
PROC: 02HV33Z Insertion of Infusion Device into Superior Vena Cava, Percutaneous Approach (ICD-10-PCS; 2020-03-10)
PROC: B5181ZA Fluoroscopy of Superior Vena Cava using Low Osmolar Contrast, Guidance (ICD-10-PCS; 2020-03-10)
PROC: B548ZZA Ultrasonography of Superior Vena Cava, Guidance (ICD-10-PCS; 2020-03-10)
PROC: 5A1D70Z Performance of Urinary Filtration, Intermittent, Less than 6 Hours Per Day (ICD-10-PCS; principal; 2020-03-11)
PROC: 02HV33Z Insertion of Infusion Device into Superior Vena Cava, Percutaneous Approach (ICD-10-PCS; 2020-03-11)
PROC: B548ZZA Ultrasonography of Superior Vena Cava, Guidance (ICD-10-PCS; 2020-03-11)
PROC: 5A1D70Z Performance of Urinary Filtration, Intermittent, Less than 6 Hours Per Day (ICD-10-PCS; 2020-03-13)
PROC: 5A1D70Z Performance of Urinary Filtration, Intermittent, Less than 6 Hours Per Day (ICD-10-PCS; 2020-03-14)
PROC: 5A1D70Z Performance of Urinary Filtration, Intermittent, Less than 6 Hours Per Day (ICD-10-PCS; 2020-03-17)
PROC: 02HV33Z Insertion of Infusion Device into Superior Vena Cava, Percutaneous Approach (ICD-10-PCS; 2020-03-19)
PROC: B5181ZA Fluoroscopy of Superior Vena Cava using Low Osmolar Contrast, Guidance (ICD-10-PCS; 2020-03-19)
PROC: 02PYX3Z Removal of Infusion Device from Great Vessel, External Approach (ICD-10-PCS; 2020-03-19)
PROC: 5A1D70Z Performance of Urinary Filtration, Intermittent, Less than 6 Hours Per Day (ICD-10-PCS; 2020-03-22)
DX: I13.2 Hypertensive heart and chronic kidney disease with heart failure and with stage 5 chronic kidney disease, or end stage renal disease (principal); I50.23 Acute on chronic systolic (congestive) heart failure; J96.21 Acute and chronic respiratory failure with hypoxia; G92 Toxic encephalopathy; N18.6 End stage renal disease; G62.81 Critical illness polyneuropathy; I48.20 Chronic atrial fibrillation, unspecified; I48.92 Unspecified atrial flutter; N17.9 Acute kidney failure, unspecified; I42.8 Other cardiomyopathies; J44.9 Chronic obstructive pulmonary disease, unspecified; I27.20 Pulmonary hypertension, unspecified; I16.0 Hypertensive urgency; E78.5 Hyperlipidemia, unspecified; E11.22 Type 2 diabetes mellitus with diabetic chronic kidney disease; D63.1 Anemia in chronic kidney disease; B35.1 Tinea unguium; D50.9 Iron deficiency anemia, unspecified; D72.819 Decreased white blood cell count, unspecified; E04.2 Nontoxic multinodular goiter; E11.43 Type 2 diabetes mellitus with diabetic autonomic (poly)neuropathy; E11.65 Type 2 diabetes mellitus with hyperglycemia; E66.9 Obesity, unspecified; E78.00 Pure hypercholesterolemia, unspecified; E87.5 Hyperkalemia; E87.8 Other disorders of electrolyte and fluid balance, not elsewhere classified; K31.84 Gastroparesis; M17.11 Unilateral primary osteoarthritis, right knee; M1A.9XX0 Chronic gout, unspecified, without tophus (tophi); E11.51 Type 2 diabetes mellitus with diabetic peripheral angiopathy without gangrene; R77.8 Other specified abnormalities of plasma proteins; M47.812 Spondylosis without myelopathy or radiculopathy, cervical region; Z96.652 Presence of left artificial knee joint; Z20.822 Contact with and (suspected) exposure to COVID-19; Z79.01 Long term (current) use of anticoagulants; Z68.28 Body mass index [BMI] 28.0-28.9, adult; Z79.4 Long term (current) use of insulin; Z80.0 Family history of malignant neoplasm of digestive organs; Z82.49 Family history of ischemic heart disease and other diseases of the circulatory system; Z86.73 Personal history of transient ischemic attack (TIA), and cerebral infarction without residual deficits; Z87.891 Personal history of nicotine dependence; Z88.0 Allergy status to penicillin; Z95.810 Presence of automatic (implantable) cardiac defibrillator; Z98.41 Cataract extraction status, right eye; Z98.42 Cataract extraction status, left eye; Z99.2 Dependence on renal dialysis; Z99.81 Dependence on supplemental oxygen; Z79.899 Other long term (current) drug therapy
CPT/HCPCS: 36415; 36558; 36573; 36589; 36600; 71045; 76770; 76937; 77001; 80048; 80053; 81003; 82140; 82375; 82550; 82570; 82575; 82607; 82746; 82805; 82962; 83036; 83540; 83550; 83735; 83880; 84300; 84439; 84443; 84481; 84484; 85025; 85044; 86705; 86706; 86709; 86803; 87340; 87426; 87635; 92610; 93005; 93970; 97110; 97116; 97162; 97166; 97530; 97535; 99152; 99153; 99291; A6261; C1725; C1750; C1752; C1769; C1893; J0885; J1642; J1644; J1815; J1940; J2405; J3010; J3490; J7030; U0003; A4315; G0500

== ENCOUNTER 2020-07-12 21:04 | Emergency (ER) | payer MEDICARE, MEDICAID ==
[~2020-07-12] VITALS: Ht 162.6 cm; Wt 63.0 kg
[~2020-07-12 21:04] MED LIST changes: +DILT360C27 MT; -FURO-151 MT; +INSU100I28 SQ; +LACT10SO7 MT; +LACT10SO7 PO; +LANTUSUD SUBCUT; -SITA100T11 MT
[2020-07-12 22:49] LABS: EOSINOPHILS % 0.4 % (0.0-5.0); HEMATOCRIT. 38.5 % (36.0-48.0); HEMOGLOBIN. 12.6 g/dL (12.0-16.0); MEAN CORPUSCULAR HEMOGLOBIN 30.3 pg (28.0-32.0); MEAN PLATELET VOLUME 10.2 fl (7.4-10.4); NEUTROPHILS % 81.6 % (40.0-76.0); PLATELET 122 x1000/uL (130-400); RED BLOOD CELL COUNT 4.15 mill/uL (4.2-5.4); RED CELL DISTRIBUTION WIDTH 15.6 % (11.6-14.6)
[2020-07-12 22:51] LABS: CHLORIDE 98 mEq/L (98-107)
[2020-07-12 22:59] LABS: INR 1.1; PARTIAL THROMBOPLASTIN TIME 36.6 sec (23.4-31.0); PROTHROMBIN TIME 12.2 sec (9.6-11.0)
[2020-07-13] MEDS ORDERED: ACETAMINOPHEN 325MG TABLET PO ONE (02:00)
[2020-07-13 02:10] VITALS: BP 165/66
== END 2020-07-13 02:14 | disposition home or self-care (01) ==
LOC: ER 21:04
DX: T82.838A Hemorrhage due to vascular prosthetic devices, implants and grafts, initial encounter (principal); X58.XXXA Exposure to other specified factors, initial encounter; I12.0 Hypertensive chronic kidney disease with stage 5 chronic kidney disease or end stage renal disease; E11.22 Type 2 diabetes mellitus with diabetic chronic kidney disease; N18.6 End stage renal disease; Z99.2 Dependence on renal dialysis; Z79.899 Other long term (current) drug therapy; Z88.0 Allergy status to penicillin
CPT/HCPCS: 36415; 71045; 80053; 85025; 86850; 86900; 93005; 99285

== ENCOUNTER 2020-07-14 14:41 | Inpatient (IN) | payer MEDICARE, MEDICAID ==
[~2020-07-14] VITALS: Ht 165.1 cm; Wt 64.4 kg
[2020-07-14] MEDS ORDERED: IPRATROPIUM/ALBUTEROL 0.5-3(2.5)MG/3ML NEB NEB PRN (16:15)
[2020-07-14] MEDS ORDERED: VANCOMYCIN 1 G PREMIX 200 ML IV SCH (17:15)
[2020-07-14 17:19] LABS: BASOPHILS % 0.9 % (0.0-2.0); EOSINOPHILS % 2.7 % (0.0-5.0); HEMATOCRIT. 33.5 % (36.0-48.0); HEMOGLOBIN. 11.4 g/dL (12.0-16.0); LYMPHOCYTES % 21.1 % (20.0-50.0); MEAN CORPUSCULAR HEMOGLOBIN 31.5 pg (28.0-32.0); MEAN CORPUSCULAR VOLUME 92.5 fL (81.0-99.0); MEAN PLATELET VOLUME 10.1 fl (7.4-10.4); MONOCYTES % 9.3 % (2.0-8.0); PLATELET 112 x1000/uL (130-400); RED BLOOD CELL COUNT 3.62 mill/uL (4.2-5.4); RED CELL DISTRIBUTION WIDTH 15.6 % (11.6-14.6)
[2020-07-14 17:22] LABS: CHLORIDE 102 mEq/L (98-107)
[2020-07-14 17:24] LABS: INR 1.1; PROTHROMBIN TIME 11.7 sec (9.6-11.0)
[2020-07-15 00:30] VITALS: BP 138/46
[2020-07-15] MEDS ORDERED: DEXTROSE 50% WATER 50ML SYRINGE IV PRN (02:45)
[2020-07-15 04:00] VITALS: BP 120/99
[2020-07-15] MEDS ORDERED: HYDROCODONE/ACETAMINOPHEN 5/325MG TABLET PO PRN (06:15)
[2020-07-15 06:23] LABS: BASOPHILS % 0.5 % (0.0-2.0); EOSINOPHILS % 3.3 % (0.0-5.0); HEMATOCRIT. 31.3 % (36.0-48.0); HEMOGLOBIN. 10.4 g/dL (12.0-16.0); LYMPHOCYTES % 20.2 % (20.0-50.0); MEAN CORPUSCULAR HEMOGLOBIN 30.8 pg (28.0-32.0); MEAN CORPUSCULAR VOLUME 92.5 fL (81.0-99.0); MEAN PLATELET VOLUME 10.3 fl (7.4-10.4); MONOCYTES % 9.3 % (2.0-8.0); NEUTROPHILS % 66.7 % (40.0-76.0); PLATELET 112 x1000/uL (130-400); RED BLOOD CELL COUNT 3.39 mill/uL (4.2-5.4); RED CELL DISTRIBUTION WIDTH 15.5 % (11.6-14.6)
[2020-07-15] MEDS: HYDROCODONE/ACETAMINOPHEN 5/325MG TABLET PO PRN ×2 (07:04→15:07)
[2020-07-15] MEDS: BLOOD SUGAR DIAGNOSTIC STRIP TEST SCH ×4 (07:35→21:00)
[2020-07-15 08:15] VITALS: BP 126/49
[2020-07-15] MEDS: ASPIRIN 81MG EC TABLET PO SCH (08:38)
[2020-07-15] MEDS: INSULIN LISPRO 100 UNITS/ML SUBCUT SCH ×4 (08:39→21:27)
[2020-07-15] MEDS: APIXABAN 2.5 MG TABLET PO SCH ×2 (11:52→17:48)
[2020-07-15 12:21] VITALS: BP 133/50
[2020-07-15] MEDS ORDERED: DIPHENHYDRAMINE 25MG CAPSULE PO PRN (13:15)
[2020-07-15] MEDS ORDERED: VANCOMYCIN 500 MG PREMIX 100 ML IV SCH (15:00)
[2020-07-15 16:00] VITALS: BP 130/51
[2020-07-15] MEDS ORDERED: PNEUMOCOCCAL 23-VAL P-SAC VAC 0.5 ML IM ONE (17:00)
[2020-07-15 20:29] VITALS: BP 140/45
[2020-07-15] MEDS: ACETAMINOPHEN 650MG/20.3ML UDC PO PRN (21:23)
[2020-07-16 00:33] VITALS: BP 138/47
[2020-07-16] MEDS: MORPHINE SULFATE 2 MG/ML CPJ (NOT FOR IM USE) IV PRN (01:05)
[2020-07-16 04:00] VITALS: BP 129/46
[2020-07-16] MEDS: BLOOD SUGAR DIAGNOSTIC STRIP TEST SCH ×4 (07:20→20:35)
[2020-07-16 08:07] VITALS: BP 133/52
[2020-07-16] MEDS: APIXABAN 2.5 MG TABLET PO SCH ×2 (08:41→17:26)
[2020-07-16] MEDS: ASPIRIN 81MG EC TABLET PO SCH (08:41)
[2020-07-16] MEDS: INSULIN LISPRO 100 UNITS/ML SUBCUT SCH ×4 (08:45→20:39)
[2020-07-16 12:10] VITALS: BP 126/45
[2020-07-16] MEDS ORDERED: INSULIN GLARGINE UD 100 UNITS/ML SYR SUBCUT NR (15:00)
[2020-07-16 16:06] VITALS: BP 138/49
[2020-07-16] MEDS: CARVEDILOL 3.125 MG TABLET PO SCH (20:37)
[2020-07-16 20:41] VITALS: BP 147/49
[2020-07-16] MEDS: INSULIN GLARGINE UD 100 UNITS/ML SYR SUBCUT SCH (23:00)
[2020-07-16] MEDS: HYDROCODONE/ACETAMINOPHEN 5/325MG TABLET PO PRN (23:56)
[2020-07-17] VITALS: BP 141/50
[2020-07-17 04:00] VITALS: BP 146/52
[2020-07-17] MEDS: MORPHINE SULFATE 2 MG/ML CPJ (NOT FOR IM USE) IV PRN (04:06)
[2020-07-17 06:56] LABS: BASOPHILS % 0.7 % (0.0-2.0); EOSINOPHILS % 5.3 % (0.0-5.0); HEMATOCRIT. 28.3 % (36.0-48.0); HEMOGLOBIN. 9.3 g/dL (12.0-16.0); LYMPHOCYTES % 22.4 % (20.0-50.0); MEAN CORPUSCULAR HEMOGLOBIN 30.4 pg (28.0-32.0); MEAN CORPUSCULAR VOLUME 92.7 fL (81.0-99.0); MEAN PLATELET VOLUME 9.2 fl (7.4-10.4); MONOCYTES % 12.9 % (2.0-8.0); NEUTROPHILS % 58.7 % (40.0-76.0); PLATELET 169 x1000/uL (130-400); RED BLOOD CELL COUNT 3.05 mill/uL (4.2-5.4); RED CELL DISTRIBUTION WIDTH 15.3 % (11.6-14.6)
[2020-07-17] MEDS: BLOOD SUGAR DIAGNOSTIC STRIP TEST SCH ×4 (07:36→20:46)
[2020-07-17] MEDS: INSULIN LISPRO 100 UNITS/ML SUBCUT SCH ×4 (07:50→20:46)
[2020-07-17] MEDS: APIXABAN 2.5 MG TABLET PO SCH ×2 (09:00→18:11)
[2020-07-17] MEDS: LOSARTAN POTASSIUM 25 MG TABLET PO SCH (09:00)
[2020-07-17] MEDS: ASPIRIN 81MG EC TABLET PO SCH (09:00)
[2020-07-17] MEDS: CARVEDILOL 3.125 MG TABLET PO SCH ×2 (09:00→20:46)
[2020-07-17] MEDS: INSULIN GLARGINE UD 100 UNITS/ML SYR SUBCUT SCH (10:00)
[2020-07-17 10:18] VITALS: BP 128/85
[2020-07-17 11:17] VITALS: BP 132/83
[2020-07-17] MEDS ORDERED: VANCOMYCIN 750 MG PREMIX 150 ML IV NR (15:00)
[2020-07-17 20:24] VITALS: BP 136/40
[2020-07-17] MEDS: ACETAMINOPHEN 650MG/20.3ML UDC PO PRN (20:45)
[2020-07-18 00:25] VITALS: BP 141/53
[2020-07-18 04:00] VITALS: BP 145/55
[2020-07-18] MEDS: BLOOD SUGAR DIAGNOSTIC STRIP TEST SCH (06:34)
[2020-07-18] MEDS: HYDROCODONE/ACETAMINOPHEN 5/325MG TABLET PO PRN (06:35)
[2020-07-18 08:00] VITALS: BP 137/56
[2020-07-18 08:10] VITALS: BP 137/56
[2020-07-18] MEDS: ASPIRIN 81MG EC TABLET PO SCH (08:34)
[2020-07-18] MEDS: INSULIN LISPRO 100 UNITS/ML SUBCUT SCH (08:34)
[2020-07-18] MEDS: CARVEDILOL 3.125 MG TABLET PO SCH (08:35)
[2020-07-18] MEDS: LOSARTAN POTASSIUM 25 MG TABLET PO SCH (08:35)
[2020-07-18] MEDS: APIXABAN 2.5 MG TABLET PO SCH (08:35)
== END 2020-07-18 09:28 | disposition home or self-care (01) | DRG 871 ==
LOC: ER 14:41 → 6WST 17:16 → EDBEDREQTM 17:19 → EDBEDREQ 17:19 → ENRESERV 22:57
PROVIDERS: ADMIT Internal Medicine Nephrology; ATTEND Internal Medicine Nephrology
DX: A41.9 Sepsis, unspecified organism (principal); I50.23 Acute on chronic systolic (congestive) heart failure; N18.6 End stage renal disease; L03.113 Cellulitis of right upper limb; E44.1 Mild protein-calorie malnutrition; I13.2 Hypertensive heart and chronic kidney disease with heart failure and with stage 5 chronic kidney disease, or end stage renal disease; I48.20 Chronic atrial fibrillation, unspecified; I48.92 Unspecified atrial flutter; I42.9 Cardiomyopathy, unspecified; J91.8 Pleural effusion in other conditions classified elsewhere; D63.1 Anemia in chronic kidney disease; D69.6 Thrombocytopenia, unspecified; E11.22 Type 2 diabetes mellitus with diabetic chronic kidney disease; I27.21 Secondary pulmonary arterial hypertension; J44.9 Chronic obstructive pulmonary disease, unspecified; K21.9 Gastro-esophageal reflux disease without esophagitis; Z96.652 Presence of left artificial knee joint; M10.9 Gout, unspecified; Z79.01 Long term (current) use of anticoagulants; Z82.49 Family history of ischemic heart disease and other diseases of the circulatory system; Z95.0 Presence of cardiac pacemaker; Z88.0 Allergy status to penicillin; Z28.21 Immunization not carried out because of patient refusal; Z68.23 Body mass index [BMI] 23.0-23.9, adult; Z87.891 Personal history of nicotine dependence
CPT/HCPCS: 36415; 71045; 80048; 80053; 80202; 82962; 83036; 83605; 83735; 84145; 85025; 86850; 86900; 90732; 93005; 93306; 93971; 97116; 97162; 99285; J1815; J2270; J3370; J7040; Q0163

== ENCOUNTER 2021-09-02 15:13 | Inpatient (IN) | payer BC, MEDICAID ==
[~2021-09-02] VITALS: Ht 160 cm; Wt 58.2 kg
[~2021-09-02 15:13] MED LIST changes: -APIX2.5T PO
[2021-09-02] MEDS ORDERED: ACETAMINOPHEN 325MG TABLET PO ONE (18:00)
[2021-09-02 18:58] LABS: BASOPHILS % 0.8 % (0.0-2.0); EOSINOPHILS % 3.3 % (0.0-5.0); HEMATOCRIT. 34.7 % (36.0-48.0); HEMOGLOBIN. 11.1 g/dL (12.0-16.0); MEAN CORPUSCULAR HEMOGLOBIN 30.5 pg (28.0-32.0); MEAN CORPUSCULAR VOLUME 95.5 fL (81.0-99.0); MEAN PLATELET VOLUME 9.8 fl (7.4-10.4); MONOCYTES % 8.6 % (2.0-8.0); NEUTROPHILS % 62.3 % (40.0-76.0); PLATELET 189 x1000/uL (130-400); RED BLOOD CELL COUNT 3.63 mill/uL (4.2-5.4); RED CELL DISTRIBUTION WIDTH 15.1 % (11.6-14.6)
[2021-09-02 19:07] LABS: INR 1.1; PROTHROMBIN TIME 11.7 sec (9.6-11.0)
[2021-09-02 19:09] LABS: CHLORIDE 100 mEq/L (98-107)
[2021-09-02] MEDS ORDERED: CLONIDINE 0.1MG TABLET PO PRN (23:45)
[2021-09-02] MEDS ORDERED: HYDROCODONE/ACETAMINOPHEN 5/325MG TABLET PO PRN (23:45)
[2021-09-02] MEDS ORDERED: ONDANSETRON HCL 4MG/2ML INJ IV PRN (23:45)
[2021-09-03 06:30] LABS: BASOPHILS % 1.8 % (0.0-2.0); EOSINOPHILS % 5.1 % (0.0-5.0); HEMATOCRIT. 32.9 % (36.0-48.0); HEMOGLOBIN. 10.9 g/dL (12.0-16.0); LYMPHOCYTES % 32.8 % (20.0-50.0); MEAN CORPUSCULAR HEMOGLOBIN 31.2 pg (28.0-32.0); MEAN CORPUSCULAR VOLUME 93.7 fL (81.0-99.0); MEAN PLATELET VOLUME 9.7 fl (7.4-10.4); NEUTROPHILS % 51.3 % (40.0-76.0); PLATELET 188 x1000/uL (130-400); RED BLOOD CELL COUNT 3.51 mill/uL (4.2-5.4); RED CELL DISTRIBUTION WIDTH 14.7 % (11.6-14.6)
[2021-09-03] MEDS: SODIUM CHLORIDE 0.9% INJ 3ML FLUSH IVF SCH ×3 (06:40→21:08)
[2021-09-03 07:31] LABS: HEPATITIS B SURFACE ANTIGEN NEGATIVE
[2021-09-03] MEDS ORDERED: NALOXONE HCL 0.4MG/ML VIAL IV PRN (08:15)
[2021-09-03 09:00] VITALS: BP 145/51
[2021-09-03] MEDS ORDERED: ENOXAPARIN 40MG/0.4ML SYR SUBCUT SCH (09:00)
[2021-09-03 12:00] VITALS: BP 150/49
[2021-09-03] MEDS ORDERED: DEXTROSE 50% WATER 50ML SYRINGE IV PRN (12:00)
[2021-09-03] MEDS: AMLODIPINE 10MG TABLET PO SCH (12:13)
[2021-09-03] MEDS: FOLIC ACID 1MG TABLET PO SCH (12:13)
[2021-09-03] MEDS: BLOOD SUGAR DIAGNOSTIC STRIP TEST SCH ×3 (12:14→21:04)
[2021-09-03] MEDS: INSULIN LISPRO 100 UNITS/ML SUBCUT SCH ×3 (12:15→21:04)
[2021-09-03 16:00] VITALS: BP 107/68
[2021-09-03] MEDS ORDERED: ALBUTEROL 6.7GM HFA INHALER INH PRN (17:16)
[2021-09-03] MEDS ORDERED: SEVE800T8 MT (17:21)
[2021-09-03] MEDS ORDERED: [UNRECOGNIZED DRUG - OTHER] SQ SCH (17:30)
[2021-09-03] MEDS ORDERED: INSULIN GLARGINE HUM REC ANLOG 7 UNIT SQ SCH (17:30)
[2021-09-03] MEDS: GABAPENTIN 100MG CAPSULE PO SCH (17:52)
[2021-09-03] MEDS: OMEPRAZOLE 20MG CAPSULE EXTENDED RELEASE PO SCH (17:52)
[2021-09-03] MEDS: SEVELAMER CARBONATE 800 MG TABLET PO SCH (17:52)
[2021-09-03] MEDS ORDERED: IPRATROPIUM/ALBUTEROL 0.5-3(2.5)MG/3ML NEB HHN PRN (18:15)
[2021-09-03 20:00] VITALS: BP 141/56
[2021-09-03] MEDS: ATORVASTATIN CALCIUM 20MG TABLET PO SCH (20:52)
[2021-09-03] MEDS: INSULIN GLARGINE 100 UNITS/ML SUBCUT SCH (21:04)
[2021-09-04] VITALS: BP 138/72
[2021-09-04 04:00] VITALS: BP 138/47
[2021-09-04] MEDS: SODIUM CHLORIDE 0.9% INJ 3ML FLUSH IVF SCH ×3 (06:00→21:22)
[2021-09-04] MEDS: INSULIN LISPRO 100 UNITS/ML SUBCUT SCH ×4 (06:17→20:26)
[2021-09-04] MEDS: BLOOD SUGAR DIAGNOSTIC STRIP TEST SCH ×4 (06:24→20:26)
[2021-09-04 08:00] VITALS: BP 140/59
[2021-09-04] MEDS ORDERED: MEDICATION NOT ON FORMULARY EA (Diltiazem Hcl (Cardizem Cd) 1 CAP) MT SCH (09:00)
[2021-09-04] MEDS: OMEPRAZOLE 20MG CAPSULE EXTENDED RELEASE PO SCH (09:38)
[2021-09-04] MEDS: SEVELAMER CARBONATE 800 MG TABLET PO SCH ×3 (09:38→18:19)
[2021-09-04] MEDS: ALLOPURINOL 100 MG TABLET PO SCH (09:38)
[2021-09-04] MEDS: LACTULOSE 20G/30ML UDC PO SCH (09:38)
[2021-09-04] MEDS: GABAPENTIN 100MG CAPSULE PO SCH ×3 (09:38→18:19)
[2021-09-04] MEDS: APIXABAN 2.5 MG TABLET PO SCH ×2 (09:39→18:19)
[2021-09-04] MEDS: AMLODIPINE 10MG TABLET PO SCH (09:39)
[2021-09-04] MEDS: DILTIAZEM HCL 180MG CAPSULE CD 24HR PO SCH (09:39)
[2021-09-04] MEDS: FOLIC ACID 1MG TABLET PO SCH (09:41)
[2021-09-04] MEDS: INSULIN GLARGINE 100 UNITS/ML SUBCUT SCH ×2 (09:48→21:22)
[2021-09-04 12:00] VITALS: BP 126/40
[2021-09-04 12:19] LABS: BASOPHILS % 1.4 % (0.0-2.0); EOSINOPHILS % 5.1 % (0.0-5.0); HEMATOCRIT. 30.3 % (36.0-48.0); HEMOGLOBIN. 9.9 g/dL (12.0-16.0); LYMPHOCYTES % 27.7 % (20.0-50.0); MEAN CORPUSCULAR HEMOGLOBIN 31.2 pg (28.0-32.0); MEAN CORPUSCULAR VOLUME 95.4 fL (81.0-99.0); MEAN PLATELET VOLUME 9.6 fl (7.4-10.4); NEUTROPHILS % 55.8 % (40.0-76.0); PLATELET 173 x1000/uL (130-400); RED BLOOD CELL COUNT 3.18 mill/uL (4.2-5.4); RED CELL DISTRIBUTION WIDTH 15.2 % (11.6-14.6)
[2021-09-04 13:35] LABS: CLARITY URINE CLOUDY (CLEAR); COLOR URINE DARK YELLOW (YELLOW); KETONES URINE TRACE (NEGATIVE); LEUKOCYTE ESTERASE URINE TRACE (NEGATIVE); NITRITE URINE NEGATIVE (NEGATIVE); OCCULT BLOOD URINE NEGATIVE (NEGATIVE); PROTEIN URINE 2+ (NEGATIVE); SPECIFIC GRAVITY URINE 1.024 (1.005-1.030)
[2021-09-04 16:00] VITALS: BP 100/41
[2021-09-04 20:00] VITALS: BP 114/56
[2021-09-04] MEDS: ATORVASTATIN CALCIUM 20MG TABLET PO SCH (20:25)
[2021-09-05] VITALS: BP 126/55
[2021-09-05 04:00] VITALS: BP 115/62
[2021-09-05] MEDS: INSULIN LISPRO 100 UNITS/ML SUBCUT SCH ×4 (06:12→21:45)
[2021-09-05] MEDS: SODIUM CHLORIDE 0.9% INJ 3ML FLUSH IVF SCH ×3 (06:12→21:50)
[2021-09-05] MEDS: BLOOD SUGAR DIAGNOSTIC STRIP TEST SCH ×4 (06:13→20:37)
[2021-09-05 07:40] LABS: BASOPHILS % 1.3 % (0.0-2.0); EOSINOPHILS % 4.1 % (0.0-5.0); HEMATOCRIT. 31.5 % (36.0-48.0); HEMOGLOBIN. 10.2 g/dL (12.0-16.0); LYMPHOCYTES % 32.2 % (20.0-50.0); MEAN CORPUSCULAR HEMOGLOBIN 31.4 pg (28.0-32.0); MEAN CORPUSCULAR VOLUME 96.9 fL (81.0-99.0); MEAN PLATELET VOLUME 9.8 fl (7.4-10.4); MONOCYTES % 9.7 % (2.0-8.0); NEUTROPHILS % 52.7 % (40.0-76.0); PLATELET 177 x1000/uL (130-400); RED BLOOD CELL COUNT 3.25 mill/uL (4.2-5.4); RED CELL DISTRIBUTION WIDTH 15.1 % (11.6-14.6)
[2021-09-05 08:00] VITALS: BP 141/55
[2021-09-05] MEDS: LACTULOSE 20G/30ML UDC PO SCH (08:29)
[2021-09-05] MEDS: ALLOPURINOL 100 MG TABLET PO SCH (08:30)
[2021-09-05] MEDS: GABAPENTIN 100MG CAPSULE PO SCH ×3 (08:30→19:06)
[2021-09-05] MEDS: APIXABAN 2.5 MG TABLET PO SCH ×2 (08:30→19:06)
[2021-09-05] MEDS: FOLIC ACID 1MG TABLET PO SCH (08:30)
[2021-09-05] MEDS: SEVELAMER CARBONATE 800 MG TABLET PO SCH ×3 (08:30→19:06)
[2021-09-05] MEDS: AMLODIPINE 10MG TABLET PO SCH (08:30)
[2021-09-05] MEDS: DILTIAZEM HCL 180MG CAPSULE CD 24HR PO SCH (08:30)
[2021-09-05] MEDS: FAMOTIDINE 20MG TABLET PO SCH (09:46)
[2021-09-05] MEDS: INSULIN GLARGINE 100 UNITS/ML SUBCUT SCH ×2 (09:47→21:44)
[2021-09-05] MEDS: POLYETHYLENE GLYCOL 3350 (17GM) 1 DOSE PACK PO SCH ×2 (10:00→12:36)
[2021-09-05] MEDS: DOCUSATE SODIUM 100MG CAPSULE PO SCH ×3 (10:00→19:08)
[2021-09-05 12:00] VITALS: BP 124/53
[2021-09-05 16:00] VITALS: BP 120/52
[2021-09-05 20:00] VITALS: BP 129/51
[2021-09-05] MEDS: ATORVASTATIN CALCIUM 20MG TABLET PO SCH (21:44)
[2021-09-06] VITALS (7 sets, daily range): BP systolic 115–136; BP diastolic 43–75
[2021-09-06] MEDS: INSULIN LISPRO 100 UNITS/ML SUBCUT SCH ×4 (04:45→21:38)
[2021-09-06] MEDS: SODIUM CHLORIDE 0.9% INJ 3ML FLUSH IVF SCH ×3 (04:45→21:38)
[2021-09-06] MEDS: BLOOD SUGAR DIAGNOSTIC STRIP TEST SCH ×4 (04:45→21:00)
[2021-09-06] MEDS: INSULIN GLARGINE 100 UNITS/ML SUBCUT SCH ×2 (09:48→21:38)
[2021-09-06] MEDS: LACTULOSE 20G/30ML UDC PO SCH (09:48)
[2021-09-06] MEDS: FOLIC ACID 1MG TABLET PO SCH (09:49)
[2021-09-06] MEDS: SEVELAMER CARBONATE 800 MG TABLET PO SCH ×3 (09:49→17:05)
[2021-09-06] MEDS: FAMOTIDINE 20MG TABLET PO SCH (09:49)
[2021-09-06] MEDS: GABAPENTIN 100MG CAPSULE PO SCH ×3 (09:49→17:05)
[2021-09-06] MEDS: POLYETHYLENE GLYCOL 3350 (17GM) 1 DOSE PACK PO SCH (09:49)
[2021-09-06] MEDS: APIXABAN 2.5 MG TABLET PO SCH ×2 (09:49→17:05)
[2021-09-06] MEDS: DOCUSATE SODIUM 100MG CAPSULE PO SCH ×2 (09:50→17:06)
[2021-09-06] MEDS: AMLODIPINE 10MG TABLET PO SCH (09:54)
[2021-09-06] MEDS: DILTIAZEM HCL 180MG CAPSULE CD 24HR PO SCH (09:54)
[2021-09-06] MEDS: ALLOPURINOL 100 MG TABLET PO SCH (09:54)
[2021-09-06] MEDS: ATORVASTATIN CALCIUM 20MG TABLET PO SCH (21:37)
[2021-09-07 04:30] VITALS: BP 125/53
[2021-09-07] MEDS: BLOOD SUGAR DIAGNOSTIC STRIP TEST SCH ×4 (04:51→21:54)
[2021-09-07] MEDS: SODIUM CHLORIDE 0.9% INJ 3ML FLUSH IVF SCH ×3 (05:04→22:17)
[2021-09-07] MEDS: INSULIN LISPRO 100 UNITS/ML SUBCUT SCH ×4 (05:04→22:21)
[2021-09-07 08:00] VITALS: BP 137/50
[2021-09-07] MEDS: FOLIC ACID 1MG TABLET PO SCH (10:09)
[2021-09-07] MEDS: POLYETHYLENE GLYCOL 3350 (17GM) 1 DOSE PACK PO SCH (10:09)
[2021-09-07] MEDS: SEVELAMER CARBONATE 800 MG TABLET PO SCH ×3 (10:09→18:24)
[2021-09-07] MEDS: FAMOTIDINE 20MG TABLET PO SCH (10:09)
[2021-09-07] MEDS: APIXABAN 2.5 MG TABLET PO SCH ×2 (10:09→18:24)
[2021-09-07] MEDS: ALLOPURINOL 100 MG TABLET PO SCH (10:09)
[2021-09-07] MEDS: GABAPENTIN 100MG CAPSULE PO SCH ×3 (10:09→18:24)
[2021-09-07] MEDS: LACTULOSE 20G/30ML UDC PO SCH (10:09)
[2021-09-07] MEDS: AMLODIPINE 10MG TABLET PO SCH (10:10)
[2021-09-07] MEDS: INSULIN GLARGINE 100 UNITS/ML SUBCUT SCH ×2 (10:11→22:21)
[2021-09-07] MEDS: DILTIAZEM HCL 180MG CAPSULE CD 24HR PO SCH (10:12)
[2021-09-07] MEDS: DOCUSATE SODIUM 100MG CAPSULE PO SCH ×2 (10:15→18:24)
[2021-09-07 12:00] VITALS: BP 145/64
[2021-09-07 16:00] VITALS: BP 111/64
[2021-09-07 20:00] VITALS: BP 122/99
[2021-09-07] MEDS: ATORVASTATIN CALCIUM 20MG TABLET PO SCH (22:17)
[2021-09-08] VITALS: BP 111/58
[2021-09-08 04:00] VITALS: BP 121/48
[2021-09-08] MEDS: SODIUM CHLORIDE 0.9% INJ 3ML FLUSH IVF SCH ×3 (06:26→22:05)
[2021-09-08] MEDS: BLOOD SUGAR DIAGNOSTIC STRIP TEST SCH ×4 (06:26→21:07)
[2021-09-08] MEDS: INSULIN LISPRO 100 UNITS/ML SUBCUT SCH ×4 (06:29→22:08)
[2021-09-08 08:00] VITALS: BP 115/55
[2021-09-08] MEDS: AMLODIPINE 10MG TABLET PO SCH (09:00)
[2021-09-08] MEDS: DILTIAZEM HCL 180MG CAPSULE CD 24HR PO SCH (09:00)
[2021-09-08] MEDS: LACTULOSE 20G/30ML UDC PO SCH (09:00)
[2021-09-08] MEDS: APIXABAN 2.5 MG TABLET PO SCH ×2 (09:19→18:15)
[2021-09-08] MEDS: FOLIC ACID 1MG TABLET PO SCH (09:19)
[2021-09-08] MEDS: GABAPENTIN 100MG CAPSULE PO SCH ×3 (09:19→18:14)
[2021-09-08] MEDS: POLYETHYLENE GLYCOL 3350 (17GM) 1 DOSE PACK PO SCH (09:19)
[2021-09-08] MEDS: DOCUSATE SODIUM 100MG CAPSULE PO SCH ×2 (09:19→18:14)
[2021-09-08] MEDS: SEVELAMER CARBONATE 800 MG TABLET PO SCH ×3 (09:19→18:14)
[2021-09-08] MEDS: FAMOTIDINE 20MG TABLET PO SCH (09:19)
[2021-09-08] MEDS: ALLOPURINOL 100 MG TABLET PO SCH (09:41)
[2021-09-08] MEDS: INSULIN GLARGINE 100 UNITS/ML SUBCUT SCH ×2 (10:30→22:08)
[2021-09-08] MEDS: ACETAMINOPHEN 650MG/20.3ML UDC GT PRN (10:32)
[2021-09-08 12:00] VITALS: BP 124/52
[2021-09-08 12:56] LABS: HEPATITIS B SURFACE ANTIGEN NEGATIVE
[2021-09-08 16:00] VITALS: BP 121/42
[2021-09-08 20:00] VITALS: BP 124/57
[2021-09-08] MEDS: ATORVASTATIN CALCIUM 20MG TABLET PO SCH (22:05)
[2021-09-09] VITALS: BP 135/52
[2021-09-09 04:00] VITALS: BP 129/58
[2021-09-09] MEDS: INSULIN LISPRO 100 UNITS/ML SUBCUT SCH ×4 (06:28→20:40)
[2021-09-09] MEDS: BLOOD SUGAR DIAGNOSTIC STRIP TEST SCH ×4 (06:28→20:40)
[2021-09-09] MEDS: SODIUM CHLORIDE 0.9% INJ 3ML FLUSH IVF SCH ×3 (06:56→22:00)
[2021-09-09 08:00] VITALS: BP 119/68
[2021-09-09] MEDS: LACTULOSE 20G/30ML UDC PO SCH (09:30)
[2021-09-09] MEDS: SEVELAMER CARBONATE 800 MG TABLET PO SCH ×3 (09:31→18:22)
[2021-09-09] MEDS: DOCUSATE SODIUM 100MG CAPSULE PO SCH ×2 (09:31→18:22)
[2021-09-09] MEDS: GABAPENTIN 100MG CAPSULE PO SCH ×3 (09:31→18:23)
[2021-09-09] MEDS: APIXABAN 2.5 MG TABLET PO SCH ×2 (09:31→18:23)
[2021-09-09] MEDS: ALLOPURINOL 100 MG TABLET PO SCH (09:31)
[2021-09-09] MEDS: FAMOTIDINE 20MG TABLET PO SCH (09:31)
[2021-09-09] MEDS: FOLIC ACID 1MG TABLET PO SCH (09:31)
[2021-09-09] MEDS: POLYETHYLENE GLYCOL 3350 (17GM) 1 DOSE PACK PO SCH (09:33)
[2021-09-09] MEDS: DILTIAZEM HCL 180MG CAPSULE CD 24HR PO SCH (09:38)
[2021-09-09] MEDS: AMLODIPINE 10MG TABLET PO SCH (09:38)
[2021-09-09] MEDS: INSULIN GLARGINE 100 UNITS/ML SUBCUT SCH ×2 (10:00→20:42)
[2021-09-09 12:00] VITALS: BP 95/68
[2021-09-09 16:00] VITALS: BP 122/49
[2021-09-09 20:00] VITALS: BP 105/39
[2021-09-09] MEDS: ATORVASTATIN CALCIUM 20MG TABLET PO SCH (20:39)
[2021-09-09] MEDS: ACETAMINOPHEN 650MG/20.3ML UDC GT PRN (20:40)
[2021-09-10] VITALS (7 sets, daily range): BP systolic 103–134; BP diastolic 35–77
[2021-09-10] MEDS: BLOOD SUGAR DIAGNOSTIC STRIP TEST SCH ×4 (05:46→21:00)
[2021-09-10] MEDS: SODIUM CHLORIDE 0.9% INJ 3ML FLUSH IVF SCH ×3 (05:46→22:00)
[2021-09-10] MEDS: INSULIN LISPRO 100 UNITS/ML SUBCUT SCH ×4 (05:46→21:00)
[2021-09-10] MEDS: GABAPENTIN 100MG CAPSULE PO SCH ×4 (09:00→18:23)
[2021-09-10] MEDS: DILTIAZEM HCL 180MG CAPSULE CD 24HR PO SCH (09:00)
[2021-09-10] MEDS: AMLODIPINE 10MG TABLET PO SCH (09:00)
[2021-09-10] MEDS: LACTULOSE 20G/30ML UDC PO SCH (09:56)
[2021-09-10] MEDS: POLYETHYLENE GLYCOL 3350 (17GM) 1 DOSE PACK PO SCH (09:56)
[2021-09-10] MEDS: DOCUSATE SODIUM 100MG CAPSULE PO SCH ×2 (09:57→18:23)
[2021-09-10] MEDS: ALLOPURINOL 100 MG TABLET PO SCH (09:57)
[2021-09-10] MEDS: SEVELAMER CARBONATE 800 MG TABLET PO SCH ×3 (09:57→17:00)
[2021-09-10] MEDS: FAMOTIDINE 20MG TABLET PO SCH (09:57)
[2021-09-10] MEDS: FOLIC ACID 1MG TABLET PO SCH (10:01)
[2021-09-10] MEDS: APIXABAN 2.5 MG TABLET PO SCH ×2 (10:01→18:23)
[2021-09-10] MEDS: INSULIN GLARGINE 100 UNITS/ML SUBCUT SCH ×2 (10:02→23:59)
[2021-09-10 13:09] LABS: BASOPHILS % 1.2 % (0.0-2.0); EOSINOPHILS % 3.6 % (0.0-5.0); HEMATOCRIT. 28.9 % (36.0-48.0); HEMOGLOBIN. 9.6 g/dL (12.0-16.0); LYMPHOCYTES % 19.4 % (20.0-50.0); MEAN CORPUSCULAR HEMOGLOBIN 31.6 pg (28.0-32.0); MEAN CORPUSCULAR VOLUME 94.7 fL (81.0-99.0); MEAN PLATELET VOLUME 9.7 fl (7.4-10.4); NEUTROPHILS % 64.8 % (40.0-76.0); PLATELET 197 x1000/uL (130-400); RED BLOOD CELL COUNT 3.05 mill/uL (4.2-5.4); RED CELL DISTRIBUTION WIDTH 15.5 % (11.6-14.6)
[2021-09-11] VITALS: BP 128/48
[2021-09-11] MEDS: ATORVASTATIN CALCIUM 20MG TABLET PO SCH ×2 (02:48→20:37)
[2021-09-11 04:00] VITALS: BP 131/45
[2021-09-11] MEDS: BLOOD SUGAR DIAGNOSTIC STRIP TEST SCH ×4 (06:50→20:37)
[2021-09-11] MEDS: SODIUM CHLORIDE 0.9% INJ 3ML FLUSH IVF SCH ×3 (06:50→22:00)
[2021-09-11] MEDS: INSULIN LISPRO 100 UNITS/ML SUBCUT SCH ×4 (07:50→21:00)
[2021-09-11 08:00] VITALS: BP 132/61
[2021-09-11] MEDS: SEVELAMER CARBONATE 800 MG TABLET PO SCH ×3 (08:40→18:01)
[2021-09-11] MEDS: POLYETHYLENE GLYCOL 3350 (17GM) 1 DOSE PACK PO SCH (08:40)
[2021-09-11] MEDS: ALLOPURINOL 100 MG TABLET PO SCH (08:41)
[2021-09-11] MEDS: DOCUSATE SODIUM 100MG CAPSULE PO SCH ×2 (08:41→18:01)
[2021-09-11] MEDS: AMLODIPINE 10MG TABLET PO SCH (08:41)
[2021-09-11] MEDS: GABAPENTIN 100MG CAPSULE PO SCH ×3 (08:41→18:01)
[2021-09-11] MEDS: FOLIC ACID 1MG TABLET PO SCH (08:41)
[2021-09-11] MEDS: DILTIAZEM HCL 180MG CAPSULE CD 24HR PO SCH (08:41)
[2021-09-11] MEDS: FAMOTIDINE 20MG TABLET PO SCH (08:41)
[2021-09-11] MEDS: APIXABAN 2.5 MG TABLET PO SCH ×2 (08:41→18:01)
[2021-09-11] MEDS: LACTULOSE 20G/30ML UDC PO SCH (08:50)
[2021-09-11] MEDS: INSULIN GLARGINE 100 UNITS/ML SUBCUT SCH ×2 (09:43→22:00)
[2021-09-11 12:00] VITALS: BP 115/50
[2021-09-11] MEDS: ACETAMINOPHEN 650MG/20.3ML UDC GT PRN ×2 (14:21→20:37)
[2021-09-11 16:00] VITALS: BP 125/48
[2021-09-11 20:00] VITALS: BP 103/43
[2021-09-12] VITALS: BP 103/43
[2021-09-12 04:00] VITALS: BP 111/61
[2021-09-12] MEDS: SODIUM CHLORIDE 0.9% INJ 3ML FLUSH IVF SCH ×3 (06:33→22:17)
[2021-09-12] MEDS: BLOOD SUGAR DIAGNOSTIC STRIP TEST SCH ×4 (06:33→21:00)
[2021-09-12] MEDS: INSULIN LISPRO 100 UNITS/ML SUBCUT SCH ×4 (07:50→21:00)
[2021-09-12 08:00] VITALS: BP 97/59
[2021-09-12 08:05] LABS: BASOPHILS % 1.3 % (0.0-2.0); EOSINOPHILS % 2.7 % (0.0-5.0); HEMATOCRIT. 29.4 % (36.0-48.0); HEMOGLOBIN. 9.9 g/dL (12.0-16.0); LYMPHOCYTES % 24.3 % (20.0-50.0); MEAN CORPUSCULAR HEMOGLOBIN 31.4 pg (28.0-32.0); MEAN CORPUSCULAR VOLUME 92.7 fL (81.0-99.0); MEAN PLATELET VOLUME 9.1 fl (7.4-10.4); MONOCYTES % 12.5 % (2.0-8.0); NEUTROPHILS % 59.2 % (40.0-76.0); PLATELET 218 x1000/uL (130-400); RED BLOOD CELL COUNT 3.17 mill/uL (4.2-5.4); RED CELL DISTRIBUTION WIDTH 15.1 % (11.6-14.6)
[2021-09-12] MEDS: LACTULOSE 20G/30ML UDC PO SCH (08:47)
[2021-09-12] MEDS: FAMOTIDINE 20MG TABLET PO SCH (08:47)
[2021-09-12] MEDS: FOLIC ACID 1MG TABLET PO SCH (08:47)
[2021-09-12] MEDS: POLYETHYLENE GLYCOL 3350 (17GM) 1 DOSE PACK PO SCH (08:47)
[2021-09-12] MEDS: SEVELAMER CARBONATE 800 MG TABLET PO SCH ×3 (08:48→16:55)
[2021-09-12] MEDS: APIXABAN 2.5 MG TABLET PO SCH ×2 (08:49→16:55)
[2021-09-12] MEDS: GABAPENTIN 100MG CAPSULE PO SCH ×3 (08:49→16:55)
[2021-09-12] MEDS: ALLOPURINOL 100 MG TABLET PO SCH ×2 (08:51→08:57)
[2021-09-12] MEDS: DOCUSATE SODIUM 100MG CAPSULE PO SCH ×2 (08:58→16:55)
[2021-09-12] MEDS: AMLODIPINE 10MG TABLET PO SCH (09:00)
[2021-09-12] MEDS: DILTIAZEM HCL 180MG CAPSULE CD 24HR PO SCH (09:00)
[2021-09-12] MEDS: INSULIN GLARGINE 100 UNITS/ML SUBCUT SCH ×2 (10:41→22:16)
[2021-09-12 12:00] VITALS: BP 98/40
[2021-09-12 16:00] VITALS: BP 124/49
[2021-09-12 20:00] VITALS: BP 99/42
[2021-09-12] MEDS: ACETAMINOPHEN 650MG/20.3ML UDC GT PRN (22:11)
[2021-09-12] MEDS: ATORVASTATIN CALCIUM 20MG TABLET PO SCH (22:12)
[2021-09-13] VITALS: BP 131/53
[2021-09-13 04:00] VITALS: BP 145/63
[2021-09-13] MEDS: SODIUM CHLORIDE 0.9% INJ 3ML FLUSH IVF SCH ×3 (06:00→21:08)
[2021-09-13] MEDS: BLOOD SUGAR DIAGNOSTIC STRIP TEST SCH ×4 (07:07→21:08)
[2021-09-13] MEDS: INSULIN LISPRO 100 UNITS/ML SUBCUT SCH ×4 (07:50→21:00)
[2021-09-13 08:00] VITALS: BP 121/54
[2021-09-13] MEDS: GABAPENTIN 100MG CAPSULE PO SCH ×3 (08:43→17:07)
[2021-09-13] MEDS: ACETAMINOPHEN 650MG/20.3ML UDC GT PRN (08:43)
[2021-09-13] MEDS: SEVELAMER CARBONATE 800 MG TABLET PO SCH ×3 (08:43→17:07)
[2021-09-13] MEDS: FOLIC ACID 1MG TABLET PO SCH (08:43)
[2021-09-13] MEDS: DOCUSATE SODIUM 100MG CAPSULE PO SCH ×2 (08:43→17:07)
[2021-09-13] MEDS: ALLOPURINOL 100 MG TABLET PO SCH (08:43)
[2021-09-13] MEDS: LACTULOSE 20G/30ML UDC PO SCH (08:43)
[2021-09-13] MEDS: AMLODIPINE 10MG TABLET PO SCH (08:43)
[2021-09-13] MEDS: DILTIAZEM HCL 180MG CAPSULE CD 24HR PO SCH (08:44)
[2021-09-13] MEDS: FAMOTIDINE 20MG TABLET PO SCH (08:44)
[2021-09-13] MEDS: APIXABAN 2.5 MG TABLET PO SCH ×2 (08:44→17:09)
[2021-09-13] MEDS: POLYETHYLENE GLYCOL 3350 (17GM) 1 DOSE PACK PO SCH (08:44)
[2021-09-13 12:00] VITALS: BP 108/36
[2021-09-13] MEDS: INSULIN GLARGINE 100 UNITS/ML SUBCUT SCH (12:12)
[2021-09-13 16:00] VITALS: BP 109/33
[2021-09-13 20:00] VITALS: BP 116/40
[2021-09-13] MEDS: ATORVASTATIN CALCIUM 20MG TABLET PO SCH (21:06)
[2021-09-14] VITALS: BP 106/55
[2021-09-14 04:00] VITALS: BP 121/99
[2021-09-14] MEDS: SODIUM CHLORIDE 0.9% INJ 3ML FLUSH IVF SCH ×3 (06:10→22:00)
[2021-09-14] MEDS: BLOOD SUGAR DIAGNOSTIC STRIP TEST SCH ×4 (07:20→21:00)
[2021-09-14] MEDS: INSULIN LISPRO 100 UNITS/ML SUBCUT SCH ×4 (07:50→21:00)
[2021-09-14 08:00] VITALS: BP 128/49
[2021-09-14] MEDS: LACTULOSE 20G/30ML UDC PO SCH (08:38)
[2021-09-14] MEDS: POLYETHYLENE GLYCOL 3350 (17GM) 1 DOSE PACK PO SCH (08:38)
[2021-09-14] MEDS: SEVELAMER CARBONATE 800 MG TABLET PO SCH ×3 (08:38→16:26)
[2021-09-14] MEDS: DOCUSATE SODIUM 100MG CAPSULE PO SCH ×2 (08:39→16:26)
[2021-09-14] MEDS: APIXABAN 2.5 MG TABLET PO SCH ×2 (08:39→16:26)
[2021-09-14] MEDS: FOLIC ACID 1MG TABLET PO SCH (08:39)
[2021-09-14] MEDS: FAMOTIDINE 20MG TABLET PO SCH (08:39)
[2021-09-14] MEDS: GABAPENTIN 100MG CAPSULE PO SCH ×3 (08:39→16:26)
[2021-09-14] MEDS: ALLOPURINOL 100 MG TABLET PO SCH (08:39)
[2021-09-14] MEDS: INSULIN GLARGINE 100 UNITS/ML SUBCUT SCH (10:05)
[2021-09-14 12:00] VITALS: BP 128/77
[2021-09-14] MEDS: ACETAMINOPHEN 650MG/20.3ML UDC GT PRN ×2 (13:26→23:00)
[2021-09-14 16:00] VITALS: BP 130/77
[2021-09-14 20:00] VITALS: BP 121/38
[2021-09-14] MEDS: ATORVASTATIN CALCIUM 20MG TABLET PO SCH (23:00)
[2021-09-15] VITALS: BP 128/34
[2021-09-15 04:00] VITALS: BP 154/59
[2021-09-15] MEDS: SODIUM CHLORIDE 0.9% INJ 3ML FLUSH IVF SCH ×3 (05:31→22:00)
[2021-09-15] MEDS: BLOOD SUGAR DIAGNOSTIC STRIP TEST SCH ×4 (06:23→21:08)
[2021-09-15] MEDS: INSULIN LISPRO 100 UNITS/ML SUBCUT SCH ×4 (06:38→21:00)
[2021-09-15 08:00] VITALS: BP 134/44
[2021-09-15] MEDS: LACTULOSE 20G/30ML UDC PO SCH (08:41)
[2021-09-15] MEDS: FOLIC ACID 1MG TABLET PO SCH (08:41)
[2021-09-15] MEDS: APIXABAN 2.5 MG TABLET PO SCH ×2 (08:41→17:18)
[2021-09-15] MEDS: FAMOTIDINE 20MG TABLET PO SCH (08:41)
[2021-09-15] MEDS: SEVELAMER CARBONATE 800 MG TABLET PO SCH ×3 (08:41→17:17)
[2021-09-15] MEDS: DOCUSATE SODIUM 100MG CAPSULE PO SCH ×2 (08:41→17:50)
[2021-09-15] MEDS: ALLOPURINOL 100 MG TABLET PO SCH (08:41)
[2021-09-15] MEDS: GABAPENTIN 100MG CAPSULE PO SCH ×3 (08:41→17:18)
[2021-09-15] MEDS: POLYETHYLENE GLYCOL 3350 (17GM) 1 DOSE PACK PO SCH (08:41)
[2021-09-15] MEDS: INSULIN GLARGINE 100 UNITS/ML SUBCUT SCH (10:00)
[2021-09-15 12:00] VITALS: BP 151/52
[2021-09-15 20:00] VITALS: BP 124/52
[2021-09-15] MEDS: ATORVASTATIN CALCIUM 20MG TABLET PO SCH (20:40)
[2021-09-16] VITALS: BP 119/60
[2021-09-16 04:00] VITALS: BP 121/76
[2021-09-16] MEDS: BLOOD SUGAR DIAGNOSTIC STRIP TEST SCH ×3 (05:55→17:04)
[2021-09-16] MEDS: SODIUM CHLORIDE 0.9% INJ 3ML FLUSH IVF SCH ×2 (05:55→13:00)
[2021-09-16] MEDS: INSULIN LISPRO 100 UNITS/ML SUBCUT SCH ×3 (05:55→17:04)
[2021-09-16 08:00] VITALS: BP 129/59
[2021-09-16] MEDS: POLYETHYLENE GLYCOL 3350 (17GM) 1 DOSE PACK PO SCH (08:20)
[2021-09-16] MEDS: DOCUSATE SODIUM 100MG CAPSULE PO SCH ×2 (08:21→16:22)
[2021-09-16] MEDS: LACTULOSE 20G/30ML UDC PO SCH (08:21)
[2021-09-16] MEDS: APIXABAN 2.5 MG TABLET PO SCH ×2 (08:21→16:22)
[2021-09-16] MEDS: SEVELAMER CARBONATE 800 MG TABLET PO SCH ×3 (08:21→16:22)
[2021-09-16] MEDS: FAMOTIDINE 20MG TABLET PO SCH (08:21)
[2021-09-16] MEDS: GABAPENTIN 100MG CAPSULE PO SCH ×3 (08:21→16:22)
[2021-09-16] MEDS: ALLOPURINOL 100 MG TABLET PO SCH (08:22)
[2021-09-16] MEDS: FOLIC ACID 1MG TABLET PO SCH (08:22)
[2021-09-16] MEDS: INSULIN GLARGINE 100 UNITS/ML SUBCUT SCH (09:52)
[2021-09-16 12:00] VITALS: BP 138/55
[2021-09-16 16:00] VITALS: BP 128/71
[2021-09-16 16:38] LABS: VITAMIN B12 SERUM 981 pg/mL (211-911)
== END 2021-09-16 19:02 | disposition home health service (06) | DRG 535 ==
LOC: ER 15:13 → MICUSO 21:24 → 8WST 09-03 07:33 → 6EST 09-10 16:46
PROVIDERS: ADMIT Internal Medicine Nephrology; ATTEND Internal Medicine Nephrology
PROC: 5A1D70Z Performance of Urinary Filtration, Intermittent, Less than 6 Hours Per Day (ICD-10-PCS; principal; 2021-09-03)
PROC: 5A1D70Z Performance of Urinary Filtration, Intermittent, Less than 6 Hours Per Day (ICD-10-PCS; 2021-09-05)
PROC: 5A1D80Z Performance of Urinary Filtration, Prolonged Intermittent, 6-18 hours Per Day (ICD-10-PCS; 2021-09-08)
PROC: 5A1D70Z Performance of Urinary Filtration, Intermittent, Less than 6 Hours Per Day (ICD-10-PCS; 2021-09-12)
PROC: 5A1D70Z Performance of Urinary Filtration, Intermittent, Less than 6 Hours Per Day (ICD-10-PCS; 2021-09-15)
DX: S32.592A Other specified fracture of left pubis, initial encounter for closed fracture (principal); N18.6 End stage renal disease; I13.2 Hypertensive heart and chronic kidney disease with heart failure and with stage 5 chronic kidney disease, or end stage renal disease; E44.1 Mild protein-calorie malnutrition; I42.9 Cardiomyopathy, unspecified; I48.92 Unspecified atrial flutter; I48.19 Other persistent atrial fibrillation; E11.22 Type 2 diabetes mellitus with diabetic chronic kidney disease; D64.9 Anemia, unspecified; E78.00 Pure hypercholesterolemia, unspecified; E78.5 Hyperlipidemia, unspecified; I25.10 Atherosclerotic heart disease of native coronary artery without angina pectoris; I50.9 Heart failure, unspecified; J44.9 Chronic obstructive pulmonary disease, unspecified; K21.9 Gastro-esophageal reflux disease without esophagitis; M19.90 Unspecified osteoarthritis, unspecified site; Z96.652 Presence of left artificial knee joint; I27.20 Pulmonary hypertension, unspecified; M10.9 Gout, unspecified; R53.81 Other malaise; M81.0 Age-related osteoporosis without current pathological fracture; D63.8 Anemia in other chronic diseases classified elsewhere; W18.39XA Other fall on same level, initial encounter; Y93.01 Activity, walking, marching and hiking; Z99.2 Dependence on renal dialysis; Z95.0 Presence of cardiac pacemaker; Z88.0 Allergy status to penicillin; Z79.899 Other long term (current) drug therapy; Z79.4 Long term (current) use of insulin; Z79.1 Long term (current) use of non-steroidal anti-inflammatories (NSAID); Z87.891 Personal history of nicotine dependence; Z82.49 Family history of ischemic heart disease and other diseases of the circulatory system; Z86.73 Personal history of transient ischemic attack (TIA), and cerebral infarction without residual deficits; Z79.51 Long term (current) use of inhaled steroids; Y92.89 Other specified places as the place of occurrence of the external cause; Y99.8 Other external cause status
CPT/HCPCS: 36415; 70544; 70553; 72192; 73502; 73700; 80048; 80053; 81003; 82040; 82306; 82607; 82962; 83036; 83970; 84100; 84443; 85025; 86705; 86709; 86803; 87340; 93005; 93880; 97110; 97162; 97166; 97530; 99285; G0378; J1650; J1815

== ENCOUNTER → 2021-10-16 | Outpatient (CLI) | payer BC, MEDICAID, MEDICARE ==
[~2021-10-16] MED LIST changes: -LACT10SO7 PO; -LANTUSUD SUBCUT; +SEVE800T8 MT
== END | disposition home or self-care (01) ==
LOC: RAD 15:11
PROVIDERS: ATTEND Internal Medicine Nephrology
DX: R10.2 Pelvic and perineal pain (principal); M85.88 Other specified disorders of bone density and structure, other site
CPT/HCPCS: 72170

== ENCOUNTER 2022-04-03 11:26 | Inpatient (IN) | payer MEDICARE, MEDICAID ==
[~2022-04-03] VITALS: Ht 162.6 cm; Wt 64.0 kg
[2022-04-03 14:49] LABS: BASOPHILS % 1.4 % (0.0-2.0); EOSINOPHILS % 2.9 % (0.0-5.0); HEMATOCRIT. 32.3 % (36.0-48.0); HEMOGLOBIN. 10.4 g/dL (12.0-16.0); LYMPHOCYTES % 23.3 % (20.0-50.0); MEAN PLATELET VOLUME 9.2 fl (7.4-10.4); NEUTROPHILS % 62.4 % (40.0-76.0); PLATELET 175 x1000/uL (130-400); RED BLOOD CELL COUNT 3.47 mill/uL (4.2-5.4); RED CELL DISTRIBUTION WIDTH 17.9 % (11.6-14.6)
[2022-04-03 14:56] LABS: CHLORIDE 105 mEq/L (98-107)
[2022-04-03] MEDS ORDERED: LEVOFLOXACIN 750MG PREMIX 150 ML IV ONE (15:15)
[2022-04-03] MEDS ORDERED: SODIUM POLYSTYRENE SULFONATE 15 G/60 ML BOT PO ONE (15:45)
[2022-04-03 21:30] VITALS: BP 156/65
[2022-04-03 21:41] VITALS: BP 156/65
[2022-04-03] MEDS ORDERED: POTA-79 PO (22:31)
[2022-04-03] MEDS ORDERED: APIX2.5T PO (22:31)
[2022-04-03] MEDS ORDERED: HYDROCODONE/ACETAMINOPHEN 5/325MG TABLET PO PRN (23:00)
[2022-04-03] MEDS ORDERED: LORAZEPAM 0.5MG TABLET PO PRN (23:00)
[2022-04-03] MEDS ORDERED: ONDANSETRON HCL 4MG/2ML INJ IV PRN (23:00)
[2022-04-03] MEDS ORDERED: MORPHINE SULFATE 2 MG/ML CPJ (NOT FOR IM USE) IV PRN (23:00)
[2022-04-03] MEDS ORDERED: IPRATROPIUM/ALBUTEROL 0.5-3(2.5)MG/3ML NEB NEB PRN (23:00)
[2022-04-03] MEDS ORDERED: ALBUTEROL (0.083%) 2.5MG/3ML NEB HHN PRN ×2 (23:15)
[2022-04-03] MEDS ORDERED: IPRATROPIUM BROMIDE (0.02%) 0.5MG/2.5ML NEB HHN PRN ×2 (23:15)
[2022-04-04] VITALS (15 sets, daily range): BP systolic 101–163; BP diastolic 56–100
[2022-04-04 01:21] LABS: HEPATITIS B SURFACE ANTIGEN NEGATIVE
[2022-04-04] MEDS: THIAMINE HCL 100MG TABLET PO SCH (08:30)
[2022-04-04] MEDS: FOLIC ACID 1MG TABLET PO SCH (08:30)
[2022-04-04] MEDS: ENOXAPARIN 30MG/0.3ML SYR SUBCUT SCH (08:31)
[2022-04-04] MEDS ORDERED: PROMETHAZINE HCL 25MG TABLET PO PRN (14:00)
[2022-04-04] MEDS: SEVELAMER CARBONATE 800 MG TABLET PO SCH ×2 (14:00→18:26)
[2022-04-04] MEDS ORDERED: NALOXONE HCL 0.4MG/ML VIAL IV PRN (14:15)
[2022-04-04] MEDS: CEFTRIAXONE 1,000 MG in DEXTROSE 5% WATER 50 ML IV SCH (14:54)
[2022-04-04] MEDS: AZITHROMYCIN 500 MG in DEXT 5% WATER 250 ML IV SCH (15:28)
[2022-04-04] MEDS: AMLODIPINE 5MG TABLET PO SCH (21:10)
[2022-04-05] VITALS: BP 133/80
[2022-04-05 04:00] VITALS: BP 141/66
[2022-04-05 08:00] VITALS: BP 141/65
[2022-04-05] MEDS: SEVELAMER CARBONATE 800 MG TABLET PO SCH ×3 (08:17→17:01)
[2022-04-05] MEDS: AMLODIPINE 5MG TABLET PO SCH ×2 (08:17→21:01)
[2022-04-05] MEDS: THIAMINE HCL 100MG TABLET PO SCH (08:17)
[2022-04-05] MEDS: FOLIC ACID 1MG TABLET PO SCH (08:17)
[2022-04-05] MEDS: ENOXAPARIN 30MG/0.3ML SYR SUBCUT SCH (08:17)
[2022-04-05 12:00] VITALS: BP 154/68
[2022-04-05] MEDS: CEFTRIAXONE 1,000 MG in DEXTROSE 5% WATER 50 ML IV SCH (12:10)
[2022-04-05] MEDS: AZITHROMYCIN 500 MG in DEXT 5% WATER 250 ML IV SCH (13:08)
[2022-04-05 20:00] VITALS: BP 133/80
[2022-04-05] MEDS ORDERED: DEXTROSE 50% WATER 50ML SYRINGE IV PRN (20:30)
[2022-04-05] MEDS: BLOOD SUGAR DIAGNOSTIC STRIP TEST SCH (21:00)
[2022-04-05] MEDS: INSULIN LISPRO 100 UNITS/ML SUBCUT SCH (21:35)
[2022-04-06] VITALS (11 sets, daily range): BP systolic 120–145; BP diastolic 60–84
[2022-04-06 06:38] LABS: BASOPHILS % 1.4 % (0.0-2.0); EOSINOPHILS % 3.5 % (0.0-5.0); HEMATOCRIT. 29.8 % (36.0-48.0); HEMOGLOBIN. 9.9 g/dL (12.0-16.0); LYMPHOCYTES % 24.9 % (20.0-50.0); MEAN CORPUSCULAR VOLUME 93.1 fL (81.0-99.0); MEAN PLATELET VOLUME 9.3 fl (7.4-10.4); MONOCYTES % 12.2 % (2.0-8.0); PLATELET 158 x1000/uL (130-400); RED CELL DISTRIBUTION WIDTH 17.9 % (11.6-14.6)
[2022-04-06] MEDS: INSULIN LISPRO 100 UNITS/ML SUBCUT SCH ×4 (07:09→20:35)
[2022-04-06] MEDS: BLOOD SUGAR DIAGNOSTIC STRIP TEST SCH ×4 (07:09→20:35)
[2022-04-06] MEDS: SEVELAMER CARBONATE 800 MG TABLET PO SCH ×3 (07:40→18:15)
[2022-04-06] MEDS: AMLODIPINE 5MG TABLET PO SCH ×2 (09:00→21:16)
[2022-04-06 09:25] LABS: PHOSPHORUS 4.4 mg/dL (2.5-4.9)
[2022-04-06] MEDS: ENOXAPARIN 30MG/0.3ML SYR SUBCUT SCH (12:57)
[2022-04-06] MEDS: CEFTRIAXONE 1,000 MG in DEXTROSE 5% WATER 50 ML IV SCH (12:57)
[2022-04-06] MEDS: FOLIC ACID 1MG TABLET PO SCH (13:00)
[2022-04-06] MEDS: THIAMINE HCL 100MG TABLET PO SCH (13:00)
[2022-04-06] MEDS: AZITHROMYCIN 500 MG in DEXT 5% WATER 250 ML IV SCH (14:46)
[2022-04-06] MEDS ORDERED: LACTULOSE 20G/30ML UDC PO SCH (18:00)
== END 2022-04-06 23:30 | DRG 871 ==
LOC: ER 12:00 → MICUSO 15:19 → EDBEDREQTM 16:01 → EDBEDREQ 16:01 → 8WST 21:28
PROVIDERS: ADMIT Internal Medicine Nephrology; ATTEND Internal Medicine Nephrology
PROC: 5A1D70Z Performance of Urinary Filtration, Intermittent, Less than 6 Hours Per Day (ICD-10-PCS; 2022-04-04)
PROC: 5A1D70Z Performance of Urinary Filtration, Intermittent, Less than 6 Hours Per Day (ICD-10-PCS; principal; 2022-04-06)
DX: A41.9 Sepsis, unspecified organism (principal); I21.4 Non-ST elevation (NSTEMI) myocardial infarction; J18.9 Pneumonia, unspecified organism; N18.6 End stage renal disease; J96.90 Respiratory failure, unspecified, unspecified whether with hypoxia or hypercapnia; I13.2 Hypertensive heart and chronic kidney disease with heart failure and with stage 5 chronic kidney disease, or end stage renal disease; I42.9 Cardiomyopathy, unspecified; I50.9 Heart failure, unspecified; J20.9 Acute bronchitis, unspecified; K21.9 Gastro-esophageal reflux disease without esophagitis; I48.0 Paroxysmal atrial fibrillation; E11.42 Type 2 diabetes mellitus with diabetic polyneuropathy; M19.90 Unspecified osteoarthritis, unspecified site; E11.22 Type 2 diabetes mellitus with diabetic chronic kidney disease; D63.8 Anemia in other chronic diseases classified elsewhere; I27.20 Pulmonary hypertension, unspecified; Z96.652 Presence of left artificial knee joint; M10.9 Gout, unspecified; Z20.822 Contact with and (suspected) exposure to COVID-19; Z88.0 Allergy status to penicillin; Z79.899 Other long term (current) drug therapy; Z79.4 Long term (current) use of insulin; Z82.49 Family history of ischemic heart disease and other diseases of the circulatory system; Z79.01 Long term (current) use of anticoagulants; Z99.2 Dependence on renal dialysis; Z87.891 Personal history of nicotine dependence; Z86.73 Personal history of transient ischemic attack (TIA), and cerebral infarction without residual deficits; Z95.0 Presence of cardiac pacemaker
CPT/HCPCS: 36415; 71045; 76536; 80048; 80053; 82962; 83036; 83735; 83880; 84100; 84443; 84484; 85025; 86705; 86709; 86803; 87340; 87426; 90935; 93005; 97162; 97166; 99285; J0456; J0696; J1650; J1815; J1956; J2405; J7060

== ENCOUNTER 2022-04-23 16:09 | Emergency (ER) | payer MEDICARE, MEDICAID ==
[~2022-04-23] VITALS: Ht 162.6 cm; Wt 61.0 kg
[~2022-04-23 16:09] MED LIST changes: -ALBU18HF2 IH; +APIX2.5T PO; -ATOR20TA PO; +DILT180C87 PO; -DILT360C27 MT; -FLUT1DIS3 INH; -GABA-529 PO; -LACT10SO7 MT
[2022-04-23] MEDS ORDERED: BISMUTH SUBSALICYLATE 262 MG/15 ML-120ML BOTTLE PO ONE (22:15)
[2022-04-23] MEDS ORDERED: SODIUM CHLORIDE 0.9% 1,000 ML IV ONE (22:15)
[2022-04-23] MEDS ORDERED: SODIUM CHLORIDE 0.9% 250 ML IV ONE (22:15)
[2022-04-23 23:11] LABS: EOSINOPHILS % 4.1 % (0.0-5.0); HEMATOCRIT. 34.1 % (36.0-48.0); HEMOGLOBIN. 10.9 g/dL (12.0-16.0); LYMPHOCYTES % 19.4 % (20.0-50.0); MEAN CORPUSCULAR HEMOGLOBIN 29.5 pg (28.0-32.0); MEAN CORPUSCULAR VOLUME 92.4 fL (81.0-99.0); MEAN PLATELET VOLUME 9.6 fl (7.4-10.4); MONOCYTES % 10.3 % (2.0-8.0); NEUTROPHILS % 65.2 % (40.0-76.0); PLATELET 90 x1000/uL (130-400); RED BLOOD CELL COUNT 3.69 mill/uL (4.2-5.4); RED CELL DISTRIBUTION WIDTH 17.9 % (11.6-14.6)
[2022-04-23 23:14] LABS: CHLORIDE 104 mEq/L (98-107)
[2022-04-24 01:43] VITALS: BP 159/71
[2022-04-24] MEDS ORDERED: BISMUTH SUBSALICYLATE 262 MG/15 ML-120ML BOTTLE PO NR (02:00)
[2022-04-24] MEDS ORDERED: IMOD MT (03:25)
== END 2022-04-24 09:05 | disposition home or self-care (01) ==
LOC: ER 16:28
DX: R19.7 Diarrhea, unspecified (principal); E11.22 Type 2 diabetes mellitus with diabetic chronic kidney disease; I13.2 Hypertensive heart and chronic kidney disease with heart failure and with stage 5 chronic kidney disease, or end stage renal disease; N18.6 End stage renal disease; I50.9 Heart failure, unspecified; E03.9 Hypothyroidism, unspecified; M10.9 Gout, unspecified; Z88.0 Allergy status to penicillin; Z95.0 Presence of cardiac pacemaker; Z99.2 Dependence on renal dialysis; Z98.890 Other specified postprocedural states
CPT/HCPCS: 36415; 80053; 85025; 99283; J7050; J7030

== ENCOUNTER 2022-04-29 11:36 | Inpatient (IN) | payer MEDICARE, MEDICAID ==
[~2022-04-29] VITALS: Ht 162.6 cm; Wt 62.1 kg
[~2022-04-29 11:36] MED LIST changes: +IMOD MT
[2022-04-29] MEDS ORDERED: ONDANSETRON HCL 4MG/2ML INJ IV ONE (12:15)
[2022-04-29 12:36] LABS: BASOPHILS % 0.8 % (0.0-2.0); HEMATOCRIT. 30.7 % (36.0-48.0); LYMPHOCYTES % 8.1 % (20.0-50.0); MEAN CORPUSCULAR HEMOGLOBIN 29.8 pg (28.0-32.0); MEAN CORPUSCULAR VOLUME 91.4 fL (81.0-99.0); MEAN PLATELET VOLUME 9.6 fl (7.4-10.4); MONOCYTES % 7.6 % (2.0-8.0); NEUTROPHILS % 81.5 % (40.0-76.0); PLATELET 101 x1000/uL (130-400); RED BLOOD CELL COUNT 3.35 mill/uL (4.2-5.4)
[2022-04-29 12:48] LABS: CHLORIDE 100 mEq/L (98-107)
[2022-04-29] MEDS ORDERED: LIDOCAINE HCL/EPINEPHRINE 1%-EPI 1:100,000 20 ML VIAL INFIL ONE (13:45)
[2022-04-29] MEDS ORDERED: GUAIFENESIN 200MG/10ML SUGAR FREE UDC PO PRN (23:30)
[2022-04-29] MEDS ORDERED: LORAZEPAM 2MG/ML CPJ IV PRN ×2 (23:30)
[2022-04-29] MEDS ORDERED: ACETAMINOPHEN 650MG SUPP PR PRN ×2 (23:30)
[2022-04-29] MEDS ORDERED: LISINOPRIL 5MG TABLET PO SCH (23:30)
[2022-04-29] MEDS ORDERED: HYDROCODONE/ACETAMINOPHEN 10/325MG TABLET PO PRN (23:30)
[2022-04-29] MEDS ORDERED: ACETAMINOPHEN 650MG/20.3ML UDC GT PRN ×2 (23:30)
[2022-04-29] MEDS ORDERED: ENOXAPARIN 40MG/0.4ML SYR SUBCUT SCH (23:30)
[2022-04-29] MEDS ORDERED: NA PHOS,M-B/NA PHOS,DI-BA ENEMA 118ML PR PRN (23:30)
[2022-04-29] MEDS ORDERED: ACETAMINOPHEN 325MG TABLET PO PRN ×3 (23:30)
[2022-04-29] MEDS ORDERED: CLONIDINE 0.1MG TABLET PO PRN ×2 (23:30)
[2022-04-29] MEDS ORDERED: IPRATROPIUM/ALBUTEROL 0.5-3(2.5)MG/3ML NEB NEB PRN (23:30)
[2022-04-29] MEDS ORDERED: DIPHENHYDRAMINE 50MG/ML VIAL IV PRN ×2 (23:30)
[2022-04-29] MEDS ORDERED: ONDANSETRON HCL 4MG/2ML INJ IV PRN (23:30)
[2022-04-29] MEDS ORDERED: LORAZEPAM 0.5MG TABLET PO PRN (23:30)
[2022-04-29] MEDS ORDERED: HYDROCODONE/ACETAMINOPHEN 7.5/325MG TABLET PO PRN ×3 (23:30)
[2022-04-29] MEDS ORDERED: HYDROMORPHONE HCL/PF 2MG/ML CPJ IV PRN ×2 (23:30)
[2022-04-29] MEDS ORDERED: HYDROCODONE/ACETAMINOPHEN 5/325MG TABLET PO PRN (23:30)
[2022-04-29] MEDS ORDERED: MAGNESIUM/ALUMINUM HYDROXIDE/SIMETHICONE 30ML UDC PO PRN (23:30)
[2022-04-29] MEDS ORDERED: ALBUTEROL (0.083%) 2.5MG/3ML NEB HHN PRN (23:45)
[2022-04-29] MEDS ORDERED: IPRATROPIUM BROMIDE (0.02%) 0.5MG/2.5ML NEB HHN PRN (23:45)
[2022-04-29] MEDS ORDERED: AZITHROMYCIN 500MG/250ML 250 ML IV NR (23:55)
[2022-04-30] MEDS ORDERED: MVI, ADULT NO.1 10 ML, FOLIC ACID 1 MG, THIAMINE HCL 100 MG in SODIUM CHLORIDE 0.9% 1,0... IV SCH ×4
[2022-04-30] MEDS: APIXABAN 2.5 MG TABLET PO SCH ×3 (00:23→17:45)
[2022-04-30] MEDS ORDERED: VANCOMYCIN 1G PREMIX 200 ML IV NR (00:30)
[2022-04-30] MEDS ORDERED: DEXTROSE 50% WATER 50ML SYRINGE IV PRN (00:45)
[2022-04-30] MEDS: METHYLPREDNISOLONE SOD SUCC 125 MG/2 ML VIAL IV SCH ×4 (01:59→17:55)
[2022-04-30] MEDS: AMLODIPINE 10MG TABLET PO SCH ×2 (01:59→10:29)
[2022-04-30 03:10] VITALS: BP 129/56
[2022-04-30 04:00] VITALS: BP 135/79
[2022-04-30] MEDS: SODIUM CHLORIDE 0.9% INJ 3ML FLUSH IVF SCH ×3 (05:04→21:05)
[2022-04-30 06:30] LABS: BASOPHILS % 0.8 % (0.0-2.0); EOSINOPHILS % 0.4 % (0.0-5.0); HEMATOCRIT. 25.6 % (36.0-48.0); HEMOGLOBIN. 8.3 g/dL (12.0-16.0); LYMPHOCYTES % 8.4 % (20.0-50.0); MEAN CORPUSCULAR HEMOGLOBIN 30.2 pg (28.0-32.0); MEAN CORPUSCULAR VOLUME 93.3 fL (81.0-99.0); MONOCYTES % 2.7 % (2.0-8.0); NEUTROPHILS % 87.7 % (40.0-76.0); PLATELET 104 x1000/uL (130-400); RED BLOOD CELL COUNT 2.75 mill/uL (4.2-5.4)
[2022-04-30 06:46] LABS: PHOSPHORUS 4.1 mg/dL (2.5-4.9)
[2022-04-30] MEDS: BLOOD SUGAR DIAGNOSTIC STRIP TEST SCH ×4 (07:40→20:55)
[2022-04-30 07:59] VITALS: BP 152/64
[2022-04-30] MEDS ORDERED: ASPIRIN 325MG EC TABLET PO SCH (09:00)
[2022-04-30] MEDS: MULTIVITAMINS,THER W-MINERALS TABLET PO SCH (10:29)
[2022-04-30] MEDS: FOLIC ACID 1MG TABLET PO SCH (10:29)
[2022-04-30] MEDS: LISINOPRIL 10MG TABLET PO SCH (10:30)
[2022-04-30] MEDS: FERROUS SULFATE 325MG TABLET PO SCH (10:30)
[2022-04-30] MEDS: ASPIRIN 81MG EC TABLET PO SCH (10:30)
[2022-04-30] MEDS: THIAMINE HCL 100MG TABLET PO SCH (10:31)
[2022-04-30] MEDS: INSULIN LISPRO 100 UNITS/ML SUBCUT SCH ×5 (10:38→20:55)
[2022-04-30 12:01] VITALS: BP 137/64
[2022-04-30] MEDS ORDERED: LOPERAMIDE HCL 2MG CAPSULE PO PRN (13:00)
[2022-04-30] MEDS ORDERED: INSULIN REGULAR (HUMULIN R) 300UNITS/3ML VIAL IV NR (13:00)
[2022-04-30] MEDS ORDERED: APIXABAN 2.5 MG TABLET PO SCH (13:00)
[2022-04-30] MEDS ORDERED: NALOXONE HCL 0.4MG/ML VIAL IV PRN (13:15)
[2022-04-30] MEDS ORDERED: INSULIN LISPRO 100 UNITS/ML SUBCUT NR (13:30)
[2022-04-30] MEDS ORDERED: INSULIN LISPRO (HUMALOG) 300UNITS/3ML VIAL SUBCUT NR (13:30)
[2022-04-30] MEDS: SEVELAMER CARBONATE 800 MG TABLET PO SCH ×2 (13:31→17:45)
[2022-04-30] MEDS: OMEPRAZOLE 20MG CAPSULE EXTENDED RELEASE PO SCH (13:31)
[2022-04-30] MEDS: DILTIAZEM HCL 180MG CAPSULE CD 24HR PO SCH (13:31)
[2022-04-30] MEDS: ALLOPURINOL 100 MG TABLET PO SCH (13:31)
[2022-04-30 15:42] VITALS: BP 136/68
[2022-04-30 20:00] VITALS: BP 124/48
[2022-04-30] MEDS ORDERED: AZITHROMYCIN 500 MG in DEXT 5% WATER 250 ML IV SCH (20:00)
[2022-05-01] VITALS (14 sets, daily range): BP systolic 102–156; BP diastolic 39–94
[2022-05-01] MEDS: METHYLPREDNISOLONE SOD SUCC 125 MG/2 ML VIAL IV SCH ×5 (00:03→23:47)
[2022-05-01] MEDS: SODIUM CHLORIDE 0.9% INJ 3ML FLUSH IVF SCH ×3 (05:14→21:38)
[2022-05-01] MEDS: BLOOD SUGAR DIAGNOSTIC STRIP TEST SCH ×4 (07:40→20:47)
[2022-05-01] MEDS: AMLODIPINE 10MG TABLET PO SCH (09:22)
[2022-05-01] MEDS: OMEPRAZOLE 20MG CAPSULE EXTENDED RELEASE PO SCH (09:22)
[2022-05-01] MEDS: MULTIVITAMINS,THER W-MINERALS TABLET PO SCH (09:22)
[2022-05-01] MEDS: ALLOPURINOL 100 MG TABLET PO SCH (09:23)
[2022-05-01] MEDS: FERROUS SULFATE 325MG TABLET PO SCH (09:23)
[2022-05-01] MEDS: APIXABAN 2.5 MG TABLET PO SCH (09:23)
[2022-05-01] MEDS: THIAMINE HCL 100MG TABLET PO SCH (09:23)
[2022-05-01] MEDS: ASPIRIN 81MG EC TABLET PO SCH (09:23)
[2022-05-01] MEDS: FOLIC ACID 1MG TABLET PO SCH (09:23)
[2022-05-01] MEDS: SEVELAMER CARBONATE 800 MG TABLET PO SCH ×3 (09:23→17:47)
[2022-05-01] MEDS: LISINOPRIL 10MG TABLET PO SCH (09:24)
[2022-05-01] MEDS: DILTIAZEM HCL 180MG CAPSULE CD 24HR PO SCH (09:24)
[2022-05-01] MEDS: INSULIN LISPRO 100 UNITS/ML SUBCUT SCH ×7 (09:30→20:55)
[2022-05-01] MEDS ORDERED: VANCOMYCIN 750MG PREMIX 150 ML IV SCH (12:00)
[2022-05-01] MEDS: DOCUSATE SODIUM 100MG CAPSULE PO PRN (12:52)
[2022-05-01 15:39] LABS: HEMATOCRIT 23.8 % (36.0-48.0); HEMOGLOBIN 7.7 g/dL (12.0-16.0)
[2022-05-01 15:57] LABS: TOTAL IRON BINDING CAPACITY 141 ug/dL (250-450)
[2022-05-01 16:04] LABS: FERRITIN 1366 ng/mL (10-291)
[2022-05-01 16:06] LABS: HEPATITIS B SURFACE ANTIGEN NEGATIVE
[2022-05-01 16:22] LABS: VITAMIN B12 SERUM 1268 pg/mL (211-911)
[2022-05-01 16:40] LABS: FOLIC ACID (FOLATE) SERUM > 20.00 ng/mL (>5.38)
[2022-05-01 20:09] LABS: HEMATOCRIT 25.4 % (36.0-48.0)
[2022-05-02] VITALS (12 sets, daily range): BP systolic 93–123; BP diastolic 4–72
[2022-05-02 00:45] LABS: HEMATOCRIT 24.5 % (36.0-48.0); HEMOGLOBIN 7.9 g/dL (12.0-16.0)
[2022-05-02] MEDS: SODIUM CHLORIDE 0.9% INJ 3ML FLUSH IVF SCH ×3 (05:09→21:16)
[2022-05-02] MEDS: METHYLPREDNISOLONE SOD SUCC 125 MG/2 ML VIAL IV SCH ×3 (05:09→16:55)
[2022-05-02] MEDS: BLOOD SUGAR DIAGNOSTIC STRIP TEST SCH ×4 (07:40→21:16)
[2022-05-02 08:17] LABS: HEMOGLOBIN. 7.9 g/dL (12.0-16.0); MEAN CORPUSCULAR HEMOGLOBIN 30.3 pg (28.0-32.0); MEAN CORPUSCULAR VOLUME 91.9 fL (81.0-99.0); MEAN PLATELET VOLUME 9.9 fl (7.4-10.4); PLATELET 171 x1000/uL (130-400); RED BLOOD CELL COUNT 2.61 mill/uL (4.2-5.4); RED CELL DISTRIBUTION WIDTH 17.8 % (11.6-14.6)
[2022-05-02] MEDS: SEVELAMER CARBONATE 800 MG TABLET PO SCH ×3 (08:53→16:56)
[2022-05-02] MEDS: THIAMINE HCL 100MG TABLET PO SCH (08:54)
[2022-05-02] MEDS: LISINOPRIL 10MG TABLET PO SCH (08:54)
[2022-05-02] MEDS: OMEPRAZOLE 20MG CAPSULE EXTENDED RELEASE PO SCH (08:54)
[2022-05-02] MEDS: DILTIAZEM HCL 180MG CAPSULE CD 24HR PO SCH (08:54)
[2022-05-02] MEDS: ALLOPURINOL 100 MG TABLET PO SCH (08:56)
[2022-05-02] MEDS: DOCUSATE SODIUM 100MG CAPSULE PO PRN (08:56)
[2022-05-02 09:02] LABS: PLATELET ESTIMATE NORMAL
[2022-05-02] MEDS: FOLIC ACID 1MG TABLET PO SCH (09:02)
[2022-05-02] MEDS: AMLODIPINE 10MG TABLET PO SCH (09:02)
[2022-05-02] MEDS: MULTIVITAMINS,THER W-MINERALS TABLET PO SCH (09:02)
[2022-05-02] MEDS: INSULIN LISPRO 100 UNITS/ML SUBCUT SCH ×7 (09:07→21:15)
[2022-05-02 13:00] LABS: HEMATOCRIT 24.1 % (36.0-48.0); HEMOGLOBIN 7.9 g/dL (12.0-16.0)
[2022-05-02] MEDS: POLYETHYLENE GLYCOL 3350 (17GM) 1 DOSE PACK PO SCH (15:17)
[2022-05-03] VITALS (7 sets, daily range): BP systolic 105–127; BP diastolic 40–54
[2022-05-03 03:03] LABS: HEMATOCRIT. 24.6 % (36.0-48.0); MEAN CORPUSCULAR HEMOGLOBIN 29.5 pg (28.0-32.0); MEAN CORPUSCULAR VOLUME 90.6 fL (81.0-99.0); MEAN PLATELET VOLUME 9.4 fl (7.4-10.4); PLATELET 181 x1000/uL (130-400); RED BLOOD CELL COUNT 2.71 mill/uL (4.2-5.4); RED CELL DISTRIBUTION WIDTH 17.7 % (11.6-14.6)
[2022-05-03 03:14] LABS: INR 1.2; PROTHROMBIN TIME 12.6 sec (9.6-11.0)
[2022-05-03 05:24] LABS: PLATELET ESTIMATE NORMAL
[2022-05-03] MEDS: BLOOD SUGAR DIAGNOSTIC STRIP TEST SCH ×4 (06:23→21:22)
[2022-05-03] MEDS: SODIUM CHLORIDE 0.9% INJ 3ML FLUSH IVF SCH ×3 (06:24→21:22)
[2022-05-03] MEDS: INSULIN LISPRO 100 UNITS/ML SUBCUT SCH ×7 (07:40→21:23)
[2022-05-03] MEDS: OMEPRAZOLE 20MG CAPSULE EXTENDED RELEASE PO SCH (08:48)
[2022-05-03] MEDS: SEVELAMER CARBONATE 800 MG TABLET PO SCH ×3 (08:48→17:31)
[2022-05-03] MEDS: DILTIAZEM HCL 180MG CAPSULE CD 24HR PO SCH (08:49)
[2022-05-03] MEDS: MULTIVITAMINS,THER W-MINERALS TABLET PO SCH (08:49)
[2022-05-03] MEDS: ALLOPURINOL 100 MG TABLET PO SCH (08:49)
[2022-05-03] MEDS: THIAMINE HCL 100MG TABLET PO SCH (08:49)
[2022-05-03] MEDS: FOLIC ACID 1MG TABLET PO SCH (08:50)
[2022-05-03] MEDS: LISINOPRIL 10MG TABLET PO SCH (08:50)
[2022-05-03] MEDS: POLYETHYLENE GLYCOL 3350 (17GM) 1 DOSE PACK PO SCH (08:50)
[2022-05-03] MEDS: METHYLPREDNISOLONE SOD SUCC 40 MG/ML VIAL IV SCH ×2 (08:51→17:34)
[2022-05-03] MEDS ORDERED: PROPOFOL 200MG/20ML VIAL IV ONE (14:17)
[2022-05-03] MEDS ORDERED: DEXAMETHASONE 4MG/ML 1ML VIAL ONE (14:22)
[2022-05-03] MEDS ORDERED: ONDANSETRON HCL 4MG/2ML INJ ONE (14:22)
[2022-05-04] VITALS (14 sets, daily range): BP systolic 101–138; BP diastolic 42–85
[2022-05-04] MEDS: BLOOD SUGAR DIAGNOSTIC STRIP TEST SCH ×4 (06:17→21:32)
[2022-05-04] MEDS: SODIUM CHLORIDE 0.9% INJ 3ML FLUSH IVF SCH ×3 (06:17→21:32)
[2022-05-04] MEDS: MULTIVITAMINS,THER W-MINERALS TABLET PO SCH (08:45)
[2022-05-04] MEDS: ALLOPURINOL 100 MG TABLET PO SCH (08:45)
[2022-05-04] MEDS: DILTIAZEM HCL 180MG CAPSULE CD 24HR PO SCH (08:45)
[2022-05-04] MEDS: SEVELAMER CARBONATE 800 MG TABLET PO SCH ×3 (08:45→18:12)
[2022-05-04] MEDS: FOLIC ACID 1MG TABLET PO SCH (08:45)
[2022-05-04] MEDS: THIAMINE HCL 100MG TABLET PO SCH (08:45)
[2022-05-04] MEDS: DOCUSATE SODIUM 100MG CAPSULE PO PRN (08:45)
[2022-05-04] MEDS: OMEPRAZOLE 20MG CAPSULE EXTENDED RELEASE PO SCH (08:45)
[2022-05-04] MEDS: POLYETHYLENE GLYCOL 3350 (17GM) 1 DOSE PACK PO SCH (08:46)
[2022-05-04] MEDS: LISINOPRIL 10MG TABLET PO SCH (08:46)
[2022-05-04] MEDS: INSULIN LISPRO 100 UNITS/ML SUBCUT SCH ×7 (08:50→21:32)
[2022-05-04] MEDS: METOCLOPRAMIDE HCL 10MG/2ML VIAL IV SCH (18:13)
[2022-05-05] VITALS: BP 128/50
[2022-05-05] MEDS: METOCLOPRAMIDE HCL 10MG/2ML VIAL IV SCH ×3 (00:21→12:53)
[2022-05-05 04:00] VITALS: BP 126/52
[2022-05-05 06:14] LABS: HEMATOCRIT. 27.7 % (36.0-48.0); MEAN CORPUSCULAR HEMOGLOBIN 30.7 pg (28.0-32.0); MEAN CORPUSCULAR VOLUME 94.2 fL (81.0-99.0); MEAN PLATELET VOLUME 9.1 fl (7.4-10.4); PLATELET 243 x1000/uL (130-400); RED BLOOD CELL COUNT 2.94 mill/uL (4.2-5.4); RED CELL DISTRIBUTION WIDTH 18.5 % (11.6-14.6)
[2022-05-05] MEDS: SODIUM CHLORIDE 0.9% INJ 3ML FLUSH IVF SCH ×2 (06:33→14:35)
[2022-05-05] MEDS: BLOOD SUGAR DIAGNOSTIC STRIP TEST SCH ×3 (07:37→18:18)
[2022-05-05 08:00] VITALS: BP 122/45
[2022-05-05] MEDS: THIAMINE HCL 100MG TABLET PO SCH (08:57)
[2022-05-05] MEDS: MULTIVITAMINS,THER W-MINERALS TABLET PO SCH (08:57)
[2022-05-05] MEDS: OMEPRAZOLE 20MG CAPSULE EXTENDED RELEASE PO SCH (08:57)
[2022-05-05] MEDS: LISINOPRIL 10MG TABLET PO SCH (08:58)
[2022-05-05] MEDS: ALLOPURINOL 100 MG TABLET PO SCH (08:58)
[2022-05-05] MEDS: FOLIC ACID 1MG TABLET PO SCH (08:58)
[2022-05-05] MEDS: SEVELAMER CARBONATE 800 MG TABLET PO SCH ×3 (08:59→18:12)
[2022-05-05] MEDS: DILTIAZEM HCL 180MG CAPSULE CD 24HR PO SCH (08:59)
[2022-05-05] MEDS: INSULIN LISPRO 100 UNITS/ML SUBCUT SCH ×6 (09:11→18:18)
[2022-05-05] MEDS: POLYETHYLENE GLYCOL 3350 (17GM) 1 DOSE PACK PO SCH (09:12)
[2022-05-05] MEDS ORDERED: APIXABAN 2.5 MG TABLET PO SCH (09:30)
[2022-05-05 10:34] LABS: PLATELET ESTIMATE NORMAL
[2022-05-05 12:00] VITALS: BP 113/39
[2022-05-05 16:00] VITALS: BP 126/47
[2022-05-05 19:09] VITALS: BP 126/47
== END 2022-05-05 19:45 | disposition home or self-care (01) | DRG 377 ==
LOC: ER 11:36 → EDBEDREQ 14:03 → MICUSO 15:31 → EDBEDREQTM 15:33 → EDBEDREQ 15:33 → 7WST 04-30 01:10 → 6EST 05-04 11:42
PROVIDERS: ADMIT Internal Medicine Nephrology; ATTEND Internal Medicine Nephrology
PROC: 5A1D70Z Performance of Urinary Filtration, Intermittent, Less than 6 Hours Per Day (ICD-10-PCS; 2022-05-01)
PROC: 5A1D70Z Performance of Urinary Filtration, Intermittent, Less than 6 Hours Per Day (ICD-10-PCS; 2022-05-02)
PROC: 0DB98ZX Excision of Duodenum, Via Natural or Artificial Opening Endoscopic, Diagnostic (ICD-10-PCS; principal; 2022-05-03)
PROC: 0DB78ZX Excision of Stomach, Pylorus, Via Natural or Artificial Opening Endoscopic, Diagnostic (ICD-10-PCS; 2022-05-03)
PROC: 5A1D70Z Performance of Urinary Filtration, Intermittent, Less than 6 Hours Per Day (ICD-10-PCS; 2022-05-04)
DX: K29.71 Gastritis, unspecified, with bleeding (principal); I21.4 Non-ST elevation (NSTEMI) myocardial infarction; I50.33 Acute on chronic diastolic (congestive) heart failure; N18.6 End stage renal disease; J18.9 Pneumonia, unspecified organism; I13.2 Hypertensive heart and chronic kidney disease with heart failure and with stage 5 chronic kidney disease, or end stage renal disease; I48.92 Unspecified atrial flutter; I48.20 Chronic atrial fibrillation, unspecified; N39.0 Urinary tract infection, site not specified; I42.0 Dilated cardiomyopathy; E87.1 Hypo-osmolality and hyponatremia; Z20.822 Contact with and (suspected) exposure to COVID-19; E03.9 Hypothyroidism, unspecified; I27.21 Secondary pulmonary arterial hypertension; I25.10 Atherosclerotic heart disease of native coronary artery without angina pectoris; D50.0 Iron deficiency anemia secondary to blood loss (chronic); D63.1 Anemia in chronic kidney disease; E11.22 Type 2 diabetes mellitus with diabetic chronic kidney disease; E11.43 Type 2 diabetes mellitus with diabetic autonomic (poly)neuropathy; E78.5 Hyperlipidemia, unspecified; E87.5 Hyperkalemia; K31.84 Gastroparesis; K59.00 Constipation, unspecified; K21.9 Gastro-esophageal reflux disease without esophagitis; Z99.2 Dependence on renal dialysis; Z79.01 Long term (current) use of anticoagulants; Z87.891 Personal history of nicotine dependence; Z95.0 Presence of cardiac pacemaker; Z96.652 Presence of left artificial knee joint; Z88.0 Allergy status to penicillin; Z79.4 Long term (current) use of insulin; K52.9 Noninfective gastroenteritis and colitis, unspecified; M1A.9XX0 Chronic gout, unspecified, without tophus (tophi); Z86.73 Personal history of transient ischemic attack (TIA), and cerebral infarction without residual deficits
CPT/HCPCS: 36415; 71045; 80048; 80053; 80202; 82270; 82607; 82728; 82746; 82962; 83036; 83540; 83550; 83735; 83880; 84100; 84484; 85014; 85018; 85025; 85044; 86705; 86709; 86803; 87340; 87426; 88305; 90935; 93005; 99291; C1893; J0456; J1100; J1815; J2405; J2704; J2765; J2920; J2930; J3370; J3411; J3490; J7030; J7060